=== PATIENT | male | born 1975 | race Caucasian/White ===

== ENCOUNTER 2024-09-06 12:53 | Inpatient (IN) | payer BC, SELFPAY ==
[2024-09-06] VITALS (20 sets, daily range): BP systolic 95–178; BP diastolic 35–147; BMI 35.1
[2024-09-06 11:27] LABS: Glucose - Point of Care 87 mg/dl (70-99)
[2024-09-06 11:33] LABS: % Basophils 0.9 % (0-2); % Eosinophils 3.8 % (0-6); % Immature Granulocytes 0.5 % (0-0.5); % Lymphocytes 46.3 % (20.5-51.1); % Monocytes 9.1 % (1.7-9.3); % Neutrophils 39.4 % (42.2-75.2); Absolute Basophils 0.1 10^3/uL (0-0.2); Absolute Eosinophils 0.3 10^3/uL (0-0.7); Absolute Lymphocytes 3.5 10^3/uL (1.2-3.4); Absolute Monocytes 0.7 10^3/uL (0.1-0.6); Absolute Neutrophils 2.9 10^3/uL (1.4-6.5); Hematocrit 50.4 % (39.0-52.0); Hemoglobin 16.5 g/dL (13.0-18.0); Mean Corp Hgb Conc. 32.7 g/dL (33.0-37.0); Mean Corpuscular Hgb 28.5 pg (27.0-31.0); Mean Corpuscular Volume 87.2 fL (80.0-94.0); Mean Platelet Volume 9.1 fL (7.4-10.4); Nucleated Red Blood Cells % 0 % (-); Platelet Count 307 10^3/uL (130-400); Red Blood Cell Count 5.78 10^6/uL (4.70-6.10); Red Cell Dist. Width 14.5 % (11.5-14.5); White Blood Cell Count 7.5 10^3/uL (4.8-10.8)
--- NOTE | 2024-09-06 11:39 | EDRN ---
See code 9 sheet.
[2024-09-06 11:42] LABS: AST (SGOT) 34 U/L (17-59); Albumin 4.8 g/dl (3.5-5.0); Alkaline Phosphatase 58 U/L (38-126); Blood Urea Nitrogen 14 mg/dl (9-20); Calcium 10.2 mg/dl (8.4-10.2); Carbon Dioxide 17 mmol/L (22-30); Chloride 110 mmol/L (98-107); Glucose 140 mg/dl (70-99); Potassium 4.6 mmol/L (3.5-5.1); Sodium 146 mmol/L (135-145); Total Bilirubin 0.7 mg/dl (0.2-1.3); Total Protein 8.1 g/dl (6.3-8.2); eGFR 56.72
[2024-09-06 11:54] LABS: Troponin I < 0.012 ng/ml
[2024-09-06 11:59] LABS: ALT (SGPT) 37 U/L (0-50)
[2024-09-06 12:10] LABS: ACT-LR - POC 337 Seconds (116-155)
[2024-09-06 12:24] LABS: PO2 64 mmHg (83-108)
[2024-09-06 12:28] LABS: PCO2 119 mmHg (35-48); pH < 6.80 (7.35-7.45)
[2024-09-06 12:32] LABS: ACT-LR - POC 289 Seconds (116-155)
[2024-09-06 12:54] LABS: B.E. -19.4 mmol/L; O2 Saturation % 55.6 % (94-98)
[2024-09-06 12:57] LABS: HCO3 14.2 mmol/L (21-28); PCO2 71 mmHg (35-48); PO2 46 mmHg (83-108); pH 6.91 (7.35-7.45)
[2024-09-06 13:03] LABS: Lactic Acid 15.2 mmol/L (0.7-2.0)
[2024-09-06 13:07] LABS: ACT-LR - POC 314 Seconds (116-155)
[2024-09-06 13:09] LABS: B.E. - POC -7.8 mmol/L; Glucose - POC 285 mg/dl (70-99); HCO3 - POC 20 mmol/L (21-28); Hematocrit - POC 50 % PCV (42-52); Hemodilution- POC Yes; Hemoglobin Calculated - POC 16.9; Ionized Calcium - POC 1.03 mmol/L (1.15-1.33); Lactate - POC 9.61 mmol/L (0.36-0.75); O2 Saturation %Calculated-POC 92.5 % (94-98); PCO2 - POC 47 mmHg (35-48); PO2 - POC 77 mmHg (83-108); Potassium - POC 4.1 mmol/L (3.5-5.1); Sodium - POC 140 mmol/L (136-145); Specimen Type - POC Arterial; pH - POC 7.24 (7.35-7.45)
--- NOTE | 2024-09-06 13:11 | ED.GENMED ---
Addendum entered and electronically signed by Yaneli Connors DO 09/06/24 15:10:
Procedure Note:
Endotracheal Intubation
Indication: emergent/airway protection
No consent due to emergent nature
Tube size 7.5
GlideScope, direct visualization
Attempt: 2
No complications
Confirmation by b/l breath sounds
23 cm at lip
Addendum entered and electronically signed by Khang Freitas DO 09/06/24 13:35:
[id number]... Also of note discussed obtaining pCXR prior to going to wood and wood products labourer to confirm placement of ET tube. He asked we forgo this as he can check placement of tube under fluoro in the wood and wood products labourer.
Original Note:
History of Present Illness
General
Chief Complaint: Chest Pain
Source: patient
Time Seen by Provider: 09/06/24 11:52
History of Present Illness
History of Present Illness:
Patient arrived to the emergency room complaining of chest pain. Patient told triage nurse that the patient developed chest pain while he was lifting concrete this morning. Pain is severe. Patient noted to be sweaty. Patient stated that the pain
radiated down his arms. While being triaged the patient became unresponsive. He was brought immediately to bed 40. Patient had an EKG performed essentially immediately upon arrival which showed no acute abnormalities.
Phy Exam
Physical Exam
Physical Exam:
General: Unresponsive, diaphoretic
Vitals: unremarkable
Head: Atraumatic,
Eyes: Pupils midpoint
Throat: Swi-ngqlk-ncty ventilation ongoing
Neck: Trachea midline
Lungs: Decreased breath sounds with ventilation
Heart: Regular rate, no murmurs
Abd: Soft, No pulsatile mass
Neuro: Spontaneous ventilatory effort but no spontaneous movement of his extremities
Skin: Warm, dry, no rash
Extremities: pulses equal b/l, no edema
Scores
Heart Score for Chest Pain Patients
STEMI patient?: Yes
Course
Orders/Labs/Results
Orders:
Orders
09/06/24
Electrocardiogram (*1) Stat
Reason for Study: Chest Pain
Comment: DONE
09/06/24 11:00
Electrocardiogram (*1) Urgent
Reason for Study: Chest Pain
EKG- Treatment ONCE
Amiodarone [Cordarone] 450 mg .ROUTE .STK-MED ONE
EPINEPHrine [Adrenalin 1 mg/10 ml] 6 mg .ROUTE .STK-MED ONE
Etomidate [Amidate] 40 mg .ROUTE .STK-MED ONE
Rocuronium [place] [Rocuronium] 50 mg .ROUTE .STK-MED ONE
Sodium Bicarbonate 50 meq .ROUTE .STK-MED ONE
Succinylcholine Chloride [Succinylcholine] 400 mg .ROUTE .STK-MED ONE
09/06/24 11:20
EKG [Electrocardiogram (*1)] Stat
Reason for Study: Abnormal EKG
09/06/24 11:21
EKG- Treatment ONCE
09/06/24 11:24
Comprehensive Metabolic Panel Urgent
Troponin I Urgent
09/06/24 11:25
Complete Blood Count/With Diff Urgent
09/06/24 11:34
NORepinephrine 4 MG/250 ML [Levophed] 4 mg in 250 ml .ROUTE .STK-MED
09/06/24 11:36
CXR [CR Chest Portable - 1 View] Stat
Comment:
Reason For Exam: intubation
Reason Study Needs to be Portable: Patient Unstable
09/06/24 12:10
ABG [Arterial Blood Gas] Stat
%Oxygen/Room Air: 100%
Comment: intubated
09/06/24 12:15
FentaNYL 1,000 MCG/100 ML [Sublimaze] 1,000 mcg in 100 ml IV PER PROTOCOL
Midazolam 50 mg/50 ml [Versed] 50 mg in 50 ml IV ORDERED RATE
09/06/24 12:20
Lactic Acid Stat
09/06/24 12:27
Electrocardiogram (*1) Urgent
Reason for Study: Other
Other Reason for Exam: s/p intervention
Comment: cbc
Code Status As Directed
Resuscitation Status: Full Code
CARDIAC REHAB CONSULT Routine
Co-Sign Provider:
Cardiac Rehab & Exercise Evaluation Referral
Type of Cardiac Rehab Referral: Outpatient
Diagnosis: STEMI
Date of Diagnosis/Surgery: 09/06/24
Referring Provider: Other Provider
Other Referring Provider: Chay Barrera
[facility] Intensive Cardiac Rehab Exercise Prescription
The above named person is capable of participating in an intensive cardiac rehab exercise therapy program
under the guidance of the [facility] [place] cardiac rehab staff, outpatient registered dieticians and
supervision of a physician.
ICR Program Objectives:
Provide supervised exercise, cooking classes, nutritional counseling and healthy mind-set education to
improve the function/symptom free work capacity to an optimal level as well as control risk factors to
prevent the progression of heart disease. During the supervised exercise therapy session some or all of
the following may be included in the cardiac rehab session: ECG telemetry, BP, heart rate, rate of
perceived exertion, symptoms/tolerance, cholesterol testing and education. Exercise modalities may
include: treadmill, upright or recumbent bike, spin bike, rowing machine, elliptical, recumbent
elliptical, arm-bike machine, recumbent stepper and free weights.
Intensity:
All CR staff will use ACSM guidelines: Most patients will exercise in the following range: Heart Rate
[place] range of 40% to 80% & Oxygen Uptake reserve range 40-80% (VO2R). Peak heart rate and VO2 are
derived from the cardiac rehab submaximal graded exercise test at RPE of 13/14 out of 20. Initial
intensity range: RPE 11 to 14/20 and may expand to 11 to 16/20.
Duration & Frequency:
If appropriate the patient will be progressed up to 40 minutes of exercise therapy. Patients will be
instructed to come three times a week in cardiac rehab and at a home/other gym to achieve optimal
physical activity/exercies i.e. 4000-10,000 steps per day.
Education:
The patient will receive one-on-one education during their orientation, initial exercise evaluation, ITP
reassessments and discharge session. Each exercise session will also include an education class (30-40
minutes).
[facility] Procedure As Directed
Cardiac Cath Procedure: percutaneous coronary intervention
Intake/ Output As Directed
Frequency: Per unit guidelines
Notify MD As Directed
Notify physician if: immediately for chest pain or bleeding from access site(s)
Site Checks As Directed
Check access site for bleeding/hematoma: Yes
Comment: on arrival, Q15min x4, Q30min x2, Q1 hr x2, Q2 hr x2, Q4 hr or per
protocol
Vascular Checks As Directed
Location: distal to access site - pulse check
Frequency: Other
Comment: on arrival, Q15min x4, Q30min x2, Q1 hr x2, Q2 hr x2, Q4 hr or per protocol
Vital Signs As Directed
Frequency: Other
Additional Instructions:: on arrival, Q15min x4, Q30min x2, Q1 hr x2, Q2 hr x2, then Q4 hr or per unit
protocol
09/06/24 12:30
0.9% Sodium Chloride 1000 ml [Nss] 1,000 ml IV PER PROTOCOL
Infusion rate in mL/kg/hr:: 1.5
Infusion rate in mL/hr:: 160
Duration of infusion (hours):: 5
09/06/24 12:32
Postdoctoral Scholar Consult Routine
Consulting Provider: Brittney Dc
Was physician already notified: Yes
Reason for consult: STEMI, cardiac arrest
09/06/24 12:34
Admit Patient As Directed
Co-Sign Provider:
Level of Care: Inpatient admission
Assign to:: CVICU
Physician / Group: susanne/Lisa
Diagnosis: STEMI, cardiac arrest
Reason for Hospitalization: STEMI, Cardiac arrest, LAD PCI
Expected length of stay greater than two midnights?: Yes
ELOS- Estimated Length of Stay in days: 5
I certify the patient meets the requirements for IP care: Yes
PRN Pain Medication Management As Directed
May give lesser potent ordered pain med per pt: Yes
preference::
Protocol:: Medication orders for pain may be administered in a
manner that supports deferring to patient preference
when the pt is:
- Requesting an ordered lesser potent pain medication.
Least to most potent pain medications are defined
as: acetaminophen < NSAID < tramadol < opioids
(morphine, oxycodone, hydromorphone).
- Requesting a lesser dose of the same medication IF
ORDERED.
- Requesting a less intrusive route of administration
if both routes are prescribed by the provider (PO <
IV).
09/06/24 12:35
DX Deep Vein Thrombosis Video Routine
09/06/24 12:45
Amiodarone [Cordarone] 900 mg DEXTROSE 5% PVC-free BAG [D5W PVC-free BAG] 500 ml IV PER PROTOCOL
Initial Dose in mg/min:: 1
Duration of initial dose (hours):: 6
Subsequent dose in mg/min:: 0.5
Duration of subsequent dose (hours):: 18
Maximum dose in mg/min:: 1
Hold and notify provider if:: Heart rate < 60 BPM or SBP < 90 mmHg or MAP < 60 mmHg
09/06/24 12:47
ABG [Arterial Blood Gas] Stat
%Oxygen/Room Air: 100
09/06/24 18:00
Enoxaparin Sodium [Lovenox] 40 mg SC QPM
09/07/24 06:00
Echo 2D MMode Color/Doppler IN AM
Reason for Study: stemi
Comment: lisa
Electrocardiogram (*1) IN AM
Reason for Study: Other
Other Reason for Exam: s/p intervention
Comment: cbc
Basic Metabolic Panel IN AM
Cardiovascular Evaluation IN AM
Complete Blood Count/No Diff IN AM
Glycohemoglobin (HgbA1c) IN AM
Abnormal Lab Results
09/06/24 09/06/24 09/06/24
11:24 11:25 12:02
MCHC 32.7 L g/dL
(33.0-37.0)
Absolute Lymphs (auto) 3.5 H 10^3/uL
(1.2-3.4)
Absolute Monos (auto) 0.7 H 10^3/uL
(0.1-0.6)
Neutrophils % 39.4 L %
(42.2-75.2)
pH
pCO2
pO2
HCO3
ABG O2 Sat (Measured)
Sodium 146 H mmol/L
(135-145)
Chloride 110 H mmol/L
(98-107)
Carbon Dioxide 17 L mmol/L
(22-30)
Creatinine 1.5 H mg/dL
(0.7-1.3)
Glucose 140 H mg/dl
(70-99)
Lactic Acid
POC ACT Low Range 337 H Seconds
(116-155)
09/06/24 09/06/24 09/06/24
12:10 12:20 12:25
MCHC
Absolute Lymphs (auto)
Absolute Monos (auto)
Neutrophils %
pH < 6.80 L*
(7.35-7.45)
pCO2 119 H* mmHg
(35-48)
pO2 64 L mmHg
(83-108)
HCO3
ABG O2 Sat (Measured)
Sodium
Chloride
Carbon Dioxide
Creatinine
Glucose
Lactic Acid 15.2 H* mmol/L
(0.7-2.0)
POC ACT Low Range 289 H Seconds
(116-155)
09/06/24
12:47
MCHC
Absolute Lymphs (auto)
Absolute Monos (auto)
Neutrophils %
pH 6.91 L*
(7.35-7.45)
pCO2 71 H* mmHg
(35-48)
pO2 46 L* mmHg
(83-108)
HCO3 14.2 L* mmol/L
(21-28)
ABG O2 Sat (Measured) 55.6 L %
(94-98)
Sodium
Chloride
Carbon Dioxide
Creatinine
Glucose
Lactic Acid
POC ACT Low Range
09/06/24 11:25
09/06/24 11:24
Vital Signs
Initial and Last Documented VS:
Initial Vital Signs
Temp Pulse Resp BP Pulse Ox
97.8 F 85 22 140/82 100
09/06/24 11:06 09/06/24 11:06 09/06/24 11:06 09/06/24 11:06 09/06/24 11:06
Last Documented Vital Signs
Temp Pulse Resp BP Pulse Ox
97.8 F 122 18 154/97 100
09/06/24 11:06 09/06/24 11:36 09/06/24 11:36 09/06/24 11:36 05/20/25 11:06
MDM/Problems Addressed
Differential Diagnosis Includes:
STEMI, thoracic aorta dissection, PE
MDM/Problems Addressed:
Patient presented with acute severe chest pain. Shortly after arrival he suffered a cardiac arrest. Patient brought back to resuscitation room. Patient was quickly placed on the monitor and found to be in ventricular fibrillation. He was shocked
into a wide-complex idioventricular rhythm and there was a pulse with this patient given 300 mg of amiodarone and the patient converted to sinus tachycardia. An additional EKG was obtained which shows an acute anterior wall CA. There is ST
elevation in leads I, aVL, V1, V2, V3 with reciprocal changes. A STEMI alert was called. Patient was intubated by Dr. Santiago on the second attempt. Patient was ventilated with a bag valve mask and an oral airway between intubations. Patient had
a second V-fib arrest. He was shocked and the resultant rhythm was asystole. Patient received CPR for about 3 rounds of epinephrine. Ultimately had return of spontaneous circulation. Dr. Box was quickly at the bedside after the STEMI was
called. He requested 100 mg of lidocaine. After return of spontaneous circulation the patient was taken to the [facility]. I escorted the patient to the [facility]. During the transport he had 2 episodes of ventricular tachycardia for which he
received synchronous cardioversion to sinus rhythm with 200 J. Patient transferred to the [facility] table. Dr. Box in the [facility]. We had discussed prior to coming to the [facility] that we would not initiate heparin in an effort to expedite the
transport to the [facility]. They we will start heparin, platelet inhibitors there.
*Pulse Oximetry
Patient hypoxic: no
*EKG
Interpreted by ED Provider?: Yes
Interpretation: abnormal
Heart Rate: 78
Rate: normal
Rhythm: sinus
[place]: normal axis
Interval: normal interval
QRS Pattern: normal QRS
Ischemia: non-specific ST changes
*Regrader Interpretation
Rate: normal
Interpretation: normal
Rhythm: sinus
*Critical Care Note
Total Time (30-74mins, 75-104mins- exclusive of procedures): 45 min
comment:
Critical care statement: A total of 45 minutes of critical care time was provided for this patient. This includes management of unstable vital signs, evaluation of the patient at bedside, reviewing the patient�s pertinent medical records, discussion
with consultants, review of old EKGs and review of pertinent medical records. This time with separate from time utilized to perform the aforementioned documented procedures
ED Attending Note
-
Portions of this chart may have been created with voice recognition software.� Occasional wrong word or��sound alike� substitutions may have occurred due to the inherent limitations of voice recognition software.
Discharge Plan
Departure
Patient Disposition: [facility]INE [facility]NOT[facility]
Presentation/result/management discussed w/ accepting MD/DO: Dr Box
Condition: Critical
Discharge Problem:
Acute CA, anterior wall, Cardiac arrest
Interventions
Interventions:
*Risk Screen - Suicide Last Done: 09/06/24 11:06
*General Assessment Last Done: 09/06/24 11:29
*Neglect/Abuse Screening Last Done: 09/06/24 11:06
*ED- Fall Risk Assessment Last Done: 09/06/24 11:21
*ED COVID-19 Vaccine History Last Done: 09/06/24 11:21
*Nursing Disposition Last Done: 09/06/24 11:39
ED- Cardiac Assessment Last Done: 09/06/24 11:31
Discharge Date and Time
Discharge Date/Time: 09/06/24 11:52
--- NOTE | 2024-09-06 14:00 | ITS.CL.PN ---
Consulting Marine Engineer - Procedure Note
Procedure
Procedure Note:
CARDIAC CATHETERIZATION REPORT
Date of Procedure: 09/06/2024
Referring: Dr. Khang Freitas MD
Indication: anterior STEMI
PROCEDURE(S)
1. right heart catheterization
2. left heart catheterization
3. coronary angiography
4. PCI with MINDI to LAD for acute ND
5. IVUS LAD
6. Impella placement
7. Critical care time additional 45 minutes
ACCESS
1. 14F right common femoral artery (Impella sutured in place)
2. 6F right common femoral vein
3. 8F right jugular vein
CATHETERS
1. 6F EBU4 guide catheter
2. 6F JR4 diagnostic
3. 6F JL4 diagnostic
4. 7F Denver Reanna
MODERATE SEDATION: 90 minutes of moderate sedation was utilized. An independent medical customer service representative was present to assist with and help manage the patient's level of consciousness and physiologic status.
HEMODYNAMIC DATA
LV 123/22 (EDP 37) mmHg
AO 116/87 (mean 97) mmHg
RA 17 mmHg
PA 50/20 (mean 30) mmHg
PCWP 23 mmHg
SaO2 92.1%
SvO2 70.6%
Hb 15.6 g/dL
CO/CI 6.36/2.74 L/min/m2
SVR 1257 dsc*-5
PVR 1.6 Wood units
CORONARY ANGIOGRAPHY
Dominance: Right
LM: Large with minimal disease
LAD: Large vessel giving rise to a small D1 and moderate caliber D2 before wrapping around the apex. There is a 100% thrombotic occlusion in the mid LAD before the takeoff of the D2. There are otherwise trivial luminal irregularities only.
LCx: Large vessel giving rise to a large OM1, large LPL1 and moderate caliber LPDA. There are trivial luminal irregularities only.
RCA: Small and nondominant without significant disease
PCI with MINDI to LAD
The patient arrived to the Consulting Marine Engineer intubated and sedated after undergoing approximately 15 minutes of CPR in the emergency department. There were towering ST elevations on the monitor. The patient was profoundly hypoxic despite maximal ventilatory
support. ET tube was noted to be in the right mainstem bronchus on fluoroscopy and was repositioned by anesthesia. This resulted in some but not complete improvement in hypoxia. 80 IV Lasix was given. The decision was made to proceed with Impella
placement prior to PCI in order to improve oxygenation and hemodynamics and prevent rearrest. After placing the 14 Japanese Impella sheath via ultrasound-guided right groin access, the aortic valve is crossed with a pigtail catheter and the Impella
advanced over a stiff wire and positioned with fluoroscopy. Therapy was initiated and over the next several minutes oxygenation significantly improved. Through a single access technique with placement of a 7 [place] sheath within the Impella sheath,
the left main was engaged with an EBU 4 diagnostic catheter. Angiography as described above identified the culprit lesion of the mid LAD which was wired with a Runthrough coronary wire followed by initial angioplasty with a 2.0x12 mm balloon which
restored flow to the distal LAD. A 3.5 x 22 mm [place] frontier drug-eluting stent was deployed at 14 adama. IVUS was performed demonstrating a 4 mm distal reference vessel diameter and 4.5 mm proximal reference vessel diameter. A 4.0 mm noncompliant
balloon was used to expand the distal stent edge at 16 adama. A 4.5 mm noncompliant balloon was used to expand the mid stent and proximal stent edge at 14 adama. Final IVUS demonstrated well-expanded and apposed stent with no edge dissection. The wire
and guide were removed. The Impella tear-away sheath was removed and replaced with the inline sheath which was secured in place. A right heart cath was performed via right femoral vein access, however as the Denver passed into the RV the patient had
VT which required defibrillation twice. Amiodarone and lidocaine boluses were given and drips were started. A [place] was instead placed via the right IJ and sutured in place. After the conclusion of the procedure, the patient's blood gas demonstrated
significant mixed respiratory and metabolic acidosis which was treated with bicarbonate and adjustment of ventilator settings with improvement on subsequent blood gas analysis. Filling pressures had improved dramatically at this point and the
patient was noted to be hypotensive with decreased pulsatility on the Impella A-line. Fluids were administered with improvement in pulsatility and blood pressure. The patient was noted to follow simple commands and was sedated with fentanyl and
midazolam for comfort. An OG tube was placed and 800 mg ticagrelor was given. 325 mg aspirin rectal suppository was administered. At this point the patient was taken off the table and transported to the CVICU.
RADIATION: dose 658 mGy; DAP 57 Gy*cm2; fluoroscopy time 15.1 min
CONCLUSIONS
1. Coronary artery disease as described with culprit 100% occlusion of the mid LAD
2. Successful Impella placement for cardiogenic shock and support of subsequent PCI
3. Successful IVUS guided PCI to the mid LAD with placement of a 3.5 x 22 mm [place] frontier drug-eluting stent postdilated to 4 mm distally and 4.5 mm proximally
4. Right heart cath (on Impella support) demonstrating elevated biventricular filling pressures, moderate postcapillary pulmonary hypertension, and normal cardiac output.
RECOMMENDATIONS
1. PA catheter-guided treatment of post ND cardiogenic shock. Titrate Impella to minimize need for pressors and inotropes, currently well supported on P3. Administer fluids for goal PA diastolic pressure of 15-20.
2. Maintain amio and lido drips for prevention of recurrent VT, can likely wean tomorrow.
3. Impella protocol heparin and Impella protocol hemolysis labs. If concern for hemolysis (decreased urine output, darkening urine color, worsening hemolysis labs) reach out to junior project manager on-call. Plan for Impella removal tomorrow
morning in labor representative if able to wean.
4. Continue DAPT with ticagrelor and aspirin.
5. High intensity statin. Eventual goal LDL less than 55. Check LP(a), A1c. Aggressive risk factor modification.
6. Initiation of GDMT for heart failure as tolerated once weaned from Impella
7. Eventual cardiac rehab
Signed: James Barrera MD, PhD
--- NOTE | 2024-09-06 14:20 | CON.INTV ---
Consultation
Consultation Request
Date/Time Consultation Requested: 09/06/2024
Date/Time Consultation Performed: 09/06/2024
Requesting Provider: Isauro Ramirez
Performing Provider: Brittney Dc
Reason for Consultation: Respiratory failure
Medical History
-
Chief Complaint: Chest pain, cardiac arrest
History of Present Illness:
Patient intubated and unable to provide any history.
Per ED records, patient is a 49-year-old gentleman who presented to the emergency room complaining of chest pain. Reportedly pain developed after he was lifting concrete earlier this morning. Patient was noted to be diaphoretic and while he was
being triaged he became unresponsive. Patient was noted to be in ventricular fibrillation and was defibrillated and CPR was initiated. During ED course, patient was intubated, mechanically ventilated and required at least 2 defibrillations for
ventricular fibrillation and reportedly he later developed ventricular tachycardia also. Patient received amiodarone as well as rounds of epi and Afrin. EKG was suspicious for ST elevation [place] and patient was emergently taken to company laborer. Patient
had PCI performed of LAD and Impella placed and was then admitted to cardiovascular ICU. Granulizing Machine Operator consultation was requested for further input.
Unable to obtain past medical history, surgical history etc. I tried reaching patient's spouse but was not able to, will try to gather additional information later.
Allergies / Home Medications
Allergies
Allergy/AdvReac Type Severity Reaction Status Date / Time
hydromorphone [From Dilaudid] Allergy Severe Anaphylaxis Verified 09/06/24 11:06
Review of Systems
-
Unable to Obtain full review of systems at this time due to: Patient Intubation
Vitals / Labs / Diagnostic Testing
Vital Signs
Temp Pulse Resp BP Pulse Ox
97.8 F 122 18 154/97 100
09/06/24 11:06 09/06/24 11:36 09/06/24 11:36 09/06/24 11:36 09/06/24 11:06
Laboratory Results
09/06/24 09/06/24 09/06/24
12:10 12:23 12:47
pH < 6.80 L* Cancelled 6.91 L*
pCO2 119 H* Cancelled 71 H*
pO2 64 L Cancelled 46 L*
HCO3 Cancelled 14.2 L*
O2 Delivery Level Cancelled Not Reportable
Diagnostic Testing:
Physical Exam
-
HEENT: Normocephalic
Cardiovascular: S1/S2
Respiratory: Clear and Non-Labored Respirations
GI: Soft and Non Distended
Neurology: Other (Sedated but easily wakes up with little stimulation. Moving all 4 extremities. responds to simple commands. )
Skin: Warm
General: Comfortable
Assessment
-
#1. Acute [place] complicated by Cardiac arrest due to Ventricular Fibrillation/Ventricular Tachycardia
- CPR was initiated in ED, received defibrillation, Amiodarone, Epinephrine, Lidocaine, cardioversion . Intubated in emergency room. ROSC achieved.
- s/p emergent PCI with MINDI in LAD, Impella placement. Right IJ cordis in place. ASA, Ticagrelor, heparin infusion and Statins
- Currently intubated and lightly sedated, on mechanical ventilation
- Patient moving extremities, able to squeeze hands on command, hold off cooling
- Volume assist control ventilation, 500/16/50%/5. ABG 7.39, 37, 317 (c.f. pH 6<6.8 on arrival). CXR unremarkable
- CXR in AM. Likely SAT/SBT in AM if hemodynamically stable
- Hold off CT head for now considering moving all extremities an waking up, hold off EEG
- Fentanyl and Propofol for sedation
- CXR, ABG in AM
- Stat CBC, CMP, Mg, PT/PTT
- Levophed as needed for hypotension
- Lactic acidosis resolving, 1.5 > 5.0 . Check serial lactate
- F/u CMP
68 min of critical care time spent.
Data:
ECHO 08/2024: Severely reduced left ventricular systolic function. Left ventricular ejection
fraction is 20-25%.
Hypokinesis of the mid to apical anterior segments, mid to apical septal
segments, apical inferior and apical lateral segments, and apex.
Impella visualized crossing aortic valve into LV.
No significant valve disease.
[2024-09-06] MEDS: SODIUM BICARBONATE 1025 MEQ INF CATH (14:23)
[2024-09-06 14:44] LABS: Hematocrit 45.1 % (39.0-52.0); Hemoglobin 15.4 g/dL (13.0-18.0); Mean Corp Hgb Conc. 34.1 g/dL (33.0-37.0); Mean Corpuscular Hgb 28.8 pg (27.0-31.0); Mean Corpuscular Volume 84.5 fL (80.0-94.0); Mean Platelet Volume 9.4 fL (7.4-10.4); Platelet Count 297 10^3/uL (130-400); Red Blood Cell Count 5.34 10^6/uL (4.70-6.10); Red Cell Dist. Width 14.3 % (11.5-14.5); White Blood Cell Count 16.6 10^3/uL (4.8-10.8)
[2024-09-06 14:52] LABS: INR 1.48; PT 18.4 Sec (11.4-14.6)
--- NOTE | 2024-09-06 15:00 | PTCARENOTE ---
Received pt from [facility] @ ~1415. Pt intubated via ETT. Vent set to SIMV 20/600/10/60%. POX 100%. B/L breath sounds present. Pt sedated on fentanyl gtt and versed gtt. Pt wakes to verbal stimuli, follows simple commands, SPARKS. SR w PVCs on the tele
monitor, HR 70s. SBP 110s-120s. B/L radial and DP pulses palpable. Confirming R DP pulses w doppler. Impella intact via RFA @ 88cm and set to P-7, see worklist for full settings. RFV sheath intact w KVO infusing. Heart tones audible. Amio gtt and
Lido gtt infusing on arrival. Mazariegos catheter placed, UO bloody, Dr. Box made aware. Abdomen round, hypoactive bowel sounds present. RIJ cordis and swan intact. R radial art line placed at the bedside. All lines leveled, zeroed, and flushed. Skin
CDI. Family updated and at bedside. ECHO, EKG, and CXR completed upon arrival. Ordered labs drawn and sent. See worklist for full assessment, VS, and interventions.
[2024-09-06 15:08] LABS: APTT > 200 Sec (23.4-35.0)
[2024-09-06 15:28] LABS: ACT-LR - POC 205 Seconds (116-155)
--- NOTE | 2024-09-06 15:37 | OR.RPT ---
Operative Report
Operative Report
Right Radial Arterial catheter placement
Indication: Hemolyzed labs, need for stat ABG, unreliable peripheral O2 saturation.
Bedside ultrasound was used to confirm patency of right radial artery. Under sterile condition area was subsequently cleaned and a drape was placed. Under direct ultrasound visualization,, radial artery was cannulated. Once blood was noted in the
chamber guidewire was advanced. Arterial catheter was subsequently advanced over the guidewire, and then guidewire was removed. Pressure tubing was subsequently attached to the catheter and arterial waveform was noted on the monitor. Subsequently
a dressing was placed.
Complications: None
Blood loss: None
Date of service: 09/06/2024
[2024-09-06 15:53] LABS: O2 Saturation % 96.5 % (94-98); pH 7.39 (7.35-7.45)
[2024-09-06 15:56] LABS: B.E. -2.1 mmol/L; HCO3 22.4 mmol/L (21-28); PCO2 37 mmHg (35-48); PO2 317 mmHg (83-108)
[2024-09-06 16:03] LABS: Hematocrit 43.1 % (39.0-52.0); Mean Corp Hgb Conc. 34.8 g/dL (33.0-37.0); Mean Corpuscular Hgb 29.1 pg (27.0-31.0); Mean Corpuscular Volume 83.5 fL (80.0-94.0); Platelet Count 271 10^3/uL (130-400); Red Blood Cell Count 5.16 10^6/uL (4.70-6.10); Red Cell Dist. Width 14.1 % (11.5-14.5); White Blood Cell Count 15.1 10^3/uL (4.8-10.8)
[2024-09-06] MEDS: DIPRIVAN 100 IV (16:06)
[2024-09-06 16:17] LABS: Fibrinogen 319 MG/DL (199-459)
[2024-09-06 16:26] LABS: D-Dimer 4.41 ug/mlFEU (0.00-0.50)
[2024-09-06 16:28] LABS: ALT (SGPT) 131 U/L (0-50); AST (SGOT) 211 U/L (17-59); Albumin 3.9 g/dl (3.5-5.0); Alkaline Phosphatase 33 U/L (38-126); Blood Urea Nitrogen 20 mg/dl (9-20); Calcium 7.9 mg/dl (8.4-10.2); Carbon Dioxide 24 mmol/L (22-30); Estimated Creatinine Clearance 66 ml/min; Glucose 223 mg/dl (70-99); LDH 944 U/L (120-246); Total Bilirubin 1.8 mg/dl (0.2-1.3); Total Protein 7.1 g/dl (6.3-8.2); Triglycerides 82 mg/dl (10-149); eGFR 52.49
[2024-09-06 16:38] LABS: Chloride 107 mmol/L (98-107); Potassium 3.7 mmol/L (3.5-5.1); Sodium 139 mmol/L (135-145)
[2024-09-06 17:03] LABS: ACT-LR - POC 171 Seconds (116-155)
[2024-09-06] MEDS: KCL 50 IV (17:28)
[2024-09-06] MEDS: CALCIUM GLUCONATE 100 IV ×2 (17:31→23:28)
[2024-09-06] MEDS: NSS 1000 IV (17:47)
[2024-09-06 18:07] LABS: ACT-LR - POC 152 Seconds (116-155)
[2024-09-06] MEDS: HEPARIN 25000 UNITS/250 ML IV (18:16)
[2024-09-06 18:21] LABS: B.E. -1.6 mmol/L; HCO3 23.7 mmol/L (21-28); O2 Saturation % 96.2 % (94-98); PCO2 41 mmHg (35-48); PO2 169 mmHg (83-108); pH 7.37 (7.35-7.45)
[2024-09-06 18:23] LABS: Glucose - Point of Care 153 mg/dl (70-99)
[2024-09-06 18:30] LABS: Lactic Acid 1.7 mmol/L (0.7-2.0)
[2024-09-06] MEDS: NOVOLIN R INSULIN INFUSION 100 IV (18:30)
[2024-09-06] MEDS: LIPITOR 80 MG TUBE (18:36)
[2024-09-06 18:42] LABS: APTT 35.2 Sec (23.4-35.0)
--- NOTE | 2024-09-06 19:09 | CON.HOSP ---
Addendum entered and electronically signed by Loreto Castorena DO 09/06/24 20:47:
Plan to Include
I-FARM PLANNER:
TTE Reviewed
Severely reduced left ventricular systolic function. Left ventricular ejection
fraction is 20-25%.
Hypokinesis of the mid to apical anterior segments, mid to apical septal
segments, apical inferior and apical lateral segments, and apex.
Impella visualized crossing aortic valve into LV.
No significant valve disease.
- Management per primary cardio
Original Note:
Family Physician
-
Family Physician: NOT KNOW UNKNOWN - PT DOES
Chief Complaint
-
Chest Pain, Syncope
History of Present Illness
49yo M with HTN, GERD, Renal Ca, Right Side - Resection x 2, Torn Biceps, Torn Deltoid; No known DM history presents to ER wtih Chest Pain. I spoke with ([phone]) for more information. Outside moving concrete. +SOB. Dropped to Knees. 'Cant
feel my arms.' No immediate chest pain; did have back 'soreness'. Yesterday, he was in [place] throwing the football. Had slight discomfort but did not seek further attention. Upon arrival to Triage. Patient had trouble sitting back. Had Chest
Pain radiating down both arms. ROS unattainable.
Hospital Course:
'Shortly after arrival he suffered a cardiac arrest. Patient brought back to resuscitation room. Patient was quickly placed on the monitor and found to be in ventricular fibrillation. He was shocked into a wide-complex idioventricular rhythm and
there was a pulse with this patient given 300 mg of amiodarone and the patient converted to sinus tachycardia. An additional EKG was obtained which shows an acute anterior wall AL. There is ST elevation in leads I, aVL, V1, V2, V3 with reciprocal
changes. A STEMI alert was called. Patient was intubated by Dr. Santiago on the second attempt. Patient was ventilated with a bag valve mask and an oral airway between intubations. Patient had a second V-fib arrest. He was shocked and the
resultant rhythm was asystole. Patient received CPR for about 3 rounds of epinephrine. Ultimately had return of spontaneous circulation. Dr. Box was quickly at the bedside after the STEMI was called. He requested 100 mg of lidocaine. After
return of spontaneous circulation the patient was taken to the [facility]. I escorted the patient to the [facility]. During the transport he had 2 episodes of ventricular tachycardia for which he received synchronous cardioversion to sinus rhythm with
200 J. Patient transferred to the [facility] table'
Medical History
Past Medical History
Past Medical History: Reports Other (HTN, GERD, Renal Ca, Right Side - Resection x 2, Torn Biceps, Torn Deltoid; No known DM history. )
Past Surgical History: Reports Other (Renal Ca, Right - Resection x 2; Torn Deltoid s/p Surgery, B/L Biceps Tendon Repair, Abdominal Hernia)
Social History
Tobacco: Other (Chews Tobacco)
Alcohol: Other (Social ETOH use)
Drug: Other
Personal:
Living: With Family
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
Family History
Family History: Other (Father with CAD s/p Stent x9; Paternal uncles with CAD s/p AL and multiple cardiac deaths.)
Allergies / Home Medications
Allergies reflects when Allergies were last updated in [facility].
Home Medications with original date entered in [facility]
Allergy/Medication List:
Allergies
Allergy/AdvReac Type Severity Reaction Status Date / Time
hydromorphone [From Dilaudid] Allergy Severe Anaphylaxis Verified 09/06/24 11:06
Review of Systems
-
Unable to obtain full review of systems at this time due to: Acuity and Other (Intubated)
A 12 point Review of Systems was completed except as noted: No
Physical Exam
Vital Signs
Vital Signs
Temp Pulse Resp BP Pulse Ox
97.7 F 69 18 121/66 99
09/06/24 18:00 09/06/24 19:00 09/06/24 19:00 09/06/24 19:00 09/06/24 19:00
Physical Exam
General: Well Developed, Well Nourished and Intubated
HEENT: Normocephalic, Moist Mucous Membranes (D), Atraumatic, PERRLA and Other (Dry MM)
Respiratory: Clear
Cardiac: S1/S2 and Regular Rhythm; Negative Murmur or Rub
GI: Soft, Non Tender, Non Distended, Normal Bowel Sounds and Other (Obese)
Rectal: Deferred by Provider
Genito-urinary: No Costovertebral Tend
Musculoskeletal: No Clubbing, No Cyanosis and No Edema
Skin: Warm and Dry; Negative Rash
Neuro: Awake, Alert, Nonfocal/Grossly Intact and Other (Following simple commands lightly sedated on vent)
Laboratory Results
-
Laboratory Results
09/06/24 15:43
09/06/24 15:43
PT 18.4 Sec (11.4-14.6) H 09/06/24 14:35
INR 1.48 09/06/24 14:35
APTT 35.2 Sec (23.4-35.0) H 09/06/24 18:22
pH Cancelled 09/06/24 20:00
pCO2 Cancelled 09/06/24 20:00
pO2 Cancelled 09/06/24 20:00
HCO3 Cancelled 09/06/24 20:00
Lactic Acid 1.7 mmol/L (0.7-2.0) 09/06/24 18:06
Total Bilirubin 1.8 mg/dl (0.2-1.3) H D 09/06/24 15:43
AST 211 U/L (17-59) H 09/06/24 15:43
ALT 131 U/L (0-50) H 09/06/24 15:43
Alkaline Phosphatase 33 U/L (38-126) L 09/06/24 15:43
Troponin I 16.700 ng/ml H* D 09/06/24 18:06
Data Reviewed
-
Diagnostic Radiology: Image personally visualized and interpreted
Medical Tests (Nuc Med, Echo, EKG etc): Image personally visualized and interpreted (NSR @ 69bpm, STEMI V2-V6, I-AVL, Reciprocal Depression II-AVF, QTC 422ms. )
Impression / Plan
-
STEMI / Hx HTN
- Pt presented with dyspnea and near syncope after lifting heavy concrete. Followed by back soreness and chest pain radiating to b/l arms and syncope
- EKG: NSR @ 69bpm, STEMI V2-V6, I-AVL, Reciprocal Depression II-AVF, QTC 422ms.
- S/P VF/VT arrest followed by PEA arrest. Emergent Cath with Mid LAD lesion s/p MINDI. Pt remains on Impella, intubated/sedated in CVICU
- HS Trop 0.012 -> 16.7. Trend to peak
- Started on Aspirin/Brilinta/High Intensity statin
- Wean lidocaine and Amio gtt as per ICU/Cardio recs
Ventilator Dependence
- Vent management per Critical Care team
- Sedated on prop/fent
Hyperglycemia
- BG 223 at peak since admission
- No prior hx DM. Started on insulin gtt
- Check A1C. Consider endocrine consult
GERD - Hx noted. Continue PPI
OAB - hx noted. Continue myrbetriq
Depression/Insomnia - Hx Noted. resume venlafaxine and ambien when ok from cardiac standpoint (monitor QTC)
DVT ppx: Heparin gtt
Code Status: Full Code
Communication: I Spoke with and updated her over phone and patient.
[2024-09-06] MEDS: SUBLIMAZE 100 IV (19:24)
[2024-09-06] MEDS: LR 1000 IV (19:29)
--- NOTE | 2024-09-06 19:30 | PTCARENOTE ---
Pt reassessed. Pt remains intubated and sedated. Versed switched to propofol - see MAR. Fentanyl infusion maintained. Pt opens eyes to verbal stimuli and following simple commands. SR on the tele monitor w/ PVCs. HR 70s. BP 90-110's/70s. Impella via
RFA intact @ 88 cm. Impella set to P-3. Right LE DP pulse weak, confirmed w/ doppler. RLE warm. See impella flowsheet on worklist. CVP ~ 11. PAPs 30s/10-20s. EET #7.5, 23 cm @ right lip. Pt on AC and 50% FiO2. See worklist for full settings. POX
98%. Mazariegos catheter intact. UO less bloody. Right IJ cordis w/ swan and right radial a-line maintained. All lines leveled, zeroed, and flushed. RFV venous sheath intact w/ KVO infusing. Amio, Lido, and heparin infusing as ordered. Glycemic protocol
followed - infusion currently off per protocol - see worklist. LR bolus infusing. Pt repositioned in bed. Linens changed. Right leg immobilizer on. See worklist for all nursing interventions.
[2024-09-06] MEDS: BRILINTA 90 MG TUBE (19:41)
[2024-09-06 19:52] LABS: Glucose - Point of Care 108 mg/dl (70-99)
--- NOTE | 2024-09-06 20:30 | CON.CAR ---
Consultation
Consultation Request
Date/Time Consultation Requested: 09/06/2024
Date/Time Consultation Performed: 09/06/2024
Requesting Provider: Dr. Khang Freitas
Performing Provider: Dr. Chay Barrera
Reason for Consultation: STEMI
Medical History
-
Chief Complaint: chest pain
History of Present Illness:
Mr. Lim is a 49-year-old man who presented to the [place] ED with chest pain after lifting concrete and subsequently became nonresponsive in the waiting room. He was emergently brought back to a room and initial EKG did not demonstrate
significant ischemic changes. However he subsequently arrested in VT/VF and ROSC was obtained after shock with subsequent EKG demonstrating significant anterior ST elevations. The patient rearrested and underwent CPR and ACLS for approximately 15
minutes with eventual ROSC. The decision was made to bring the patient emergently to the [facility] for angiography and mechanical support.
Family was quickly updated emergently in the ED waiting room and consent obtained verbally.
Past medical history was reviewed briefly with family and notable for hypertension, GERD, and renal cancer status post resection. No prior cardiac history was noted.
Limited social family history was obtained given emergent nature of situation.
Allergies / Home Medications
Allergy/AdvReac Type Severity Reaction Status Date / Time
hydromorphone [From Dilaudid] Allergy Severe Anaphylaxis Verified 09/06/24 11:06
�Medication �Instructions �Recorded �Confirmed �Type
amlodipine-valsartan 1 tab PO DAILY 09/06/24 09/06/24 History
mirabegron 50 mg tablet,extended mg PO 09/06/24 History
release 24 hr (Myrbetriq)
omeprazole 40 mg capsule,delayed 40 mg PO DAILY 09/06/24 09/06/24 History
release
venlafaxine 150 mg tablet,extended 150 mg PO DAILY 09/06/24 09/06/24 History
release 24 hr
zolpidem 10 mg tablet (Ambien) 10 mg PO HS PRN insomnia 09/06/24 09/06/24 History
Physical Exam
Vital Signs
Temp Pulse Resp BP Pulse Ox
36.7 C 69 18 122/69 95
09/06/24 20:00 09/06/24 20:00 09/06/24 20:00 09/06/24 20:00 09/06/24 20:00
Lab Results
09/06/24 15:43
09/06/24 15:43
Troponin I 16.700 ng/ml H* D 09/06/24 18:06
Physical Exam
General: Well Developed
Respiratory: Other (intubated)
Cardiac: Regular Rhythm
Skin: Other (blue discoloration of skin)
Neuro: Sedated
Impression / Plan
-
Mr. Odonnell is a 49-year-old man with past medical history significant for hypertension, GERD, and renal cancer status postresection, who presented with chest pain and subsequently arrested in the ED, found to have anterior STEMI. After successfully
obtaining ROSC in the ED the patient was transported to the [facility] for emergent coronary angiography. Impella CP was placed prior to angiography for treatment of cardiogenic shock and support of PCI. PCI was performed with successful MINDI x 1 to
mid LAD with excellent result.
# anterior STEMI s/p PCI to LAD
# cardiogenic shock s/p Impella CP placement
# ventricular tachycardia
# coronary artery disease
- cont. Impella at P3, trend hemolysis labs, call production tool engineer IC if worsening lysis labs, worsening urine color, decreased urine output; plan to remove Impella in landscaping and groundskeeping laborer tomorrow
- trend hemos from swan
- give 500 cc fluid boluses up to q4 hours for goal PA diastolic 15-20, trend UOP
- cont. amio/lido drips for now, wean in AM
- cont. asa/ticag daily
- high intensity statin goal LDL<55, check Lp(a), A1c
- initiate GDMT for heart failure once Impella out as tolerated
- vent management pre critical care, recommendations appreciated
- glucose management and additional medical management per hospitalist service, recommendations appreciated
Data Reviewed
-
EKG: Tracing Personally Visualized and interpreted
Radiology: Image Personally Visualized and interpreted
Ultrasound: Image Personally Visualized and interpreted
Medical Tests (Nuc Med, Echo etc): Image Personally Visualized and interpreted
Labs: Labs Reviewed by me
[2024-09-06] MEDS: SUBLIMAZE 50 MCG IV (20:49)
[2024-09-06 21:14] LABS: Glucose - Point of Care 87 mg/dl (70-99)
[2024-09-06 21:44] LABS: B.E. -1.3 mmol/L; HCO3 23.7 mmol/L (21-28); Ionized Calcium 1.13 mMOL/L (1.15-1.33); O2 Saturation % 96.1 % (94-98); PCO2 40 mmHg (35-48); PO2 152 mmHg (83-108); Potassium 4.3 mMOL/L (3.5-5.1); pH 7.38 (7.35-7.45)
[2024-09-06 21:46] LABS: O2 Therapy %Oxygen/Room Air ven
[2024-09-06 21:54] LABS: Lactic Acid 1.1 mmol/L (0.7-2.0)
[2024-09-06 21:58] LABS: Blood Urea Nitrogen 23 mg/dl (9-20); Calcium 8.4 mg/dl (8.4-10.2); Carbon Dioxide 28 mmol/L (22-30); Chloride 109 mmol/L (98-107); Estimated Creatinine Clearance 52 ml/min; Glucose 100 mg/dl (70-99); Potassium 4.3 mmol/L (3.5-5.1); Sodium 138 mmol/L (135-145); eGFR 40.16
[2024-09-06 22:05] LABS: LDH 1132 U/L (120-246)
[2024-09-06 22:12] LABS: Glucose - Point of Care 85 mg/dl (70-99)
--- NOTE | 2024-09-06 23:00 | PTCARENOTE ---
bedside report received from previous RN, assumed care of pt. pt in bed, intubated via ETT. vent set to A/C 18/550/8/50%. POX 98%. B/L breath sounds present. pt sedated on fentanyl gtt and propofol gtt. pt wakes to verbal stimuli, follows simple
commands, SPARKS. SR w PVCs on monitor, HR 70s. SBP 110s. B/L radial and DP pulses palpable. Confirming R DP pulses w doppler. Impella intact via RFA set to P-2, see worklist for full settings. RFV sheath intact w KVO infusing. heart tones clear. Amio
gtt and Lido gtt infusing. Heparin gtt infusing per protocol. farmer catheter intact, draining jose juan urine. abdomen round, hypoactive bowel sounds present. RIJ cordis and swan intact. right radial art line intact. skin CDI. at bedside. see
worklist for full assessment, VS, and interventions.
[2024-09-07] VITALS: BP 135/76
[2024-09-07 00:17] LABS: Glucose - Point of Care 97 mg/dl (70-99)
[2024-09-07] MEDS: DIPRIVAN 100 IV ×2 (00:17→06:15)
[2024-09-07 00:34] LABS: APTT 42.4 Sec (23.4-35.0)
[2024-09-07] MEDS: SUBLIMAZE 100 IV ×2 (01:50→08:32)
[2024-09-07 02:14] LABS: Glucose - Point of Care 104 mg/dl (70-99)
--- NOTE | 2024-09-07 03:00 | PTCARENOTE ---
no acute changes in assessment. vent maintained on A/C 18/550/8/40%. POX 97-98%. Fent and Prop gtt maintained. SR w PVCs 70s. Impella remains @ P-3, site CDI. pt neurovascularly intact. SBP 130s. CI > 2. pt remains on Amio, Lido, and Heparin gtts.
UO adequate. OGT maintained to LIS. AM labs drawn and sent.
[2024-09-07 03:31] LABS: Hematocrit 43.6 % (39.0-52.0); Hemoglobin 14.6 g/dL (13.0-18.0); Mean Corp Hgb Conc. 33.5 g/dL (33.0-37.0); Mean Corpuscular Hgb 28.6 pg (27.0-31.0); Mean Corpuscular Volume 85.5 fL (80.0-94.0); Mean Platelet Volume 8.9 fL (7.4-10.4); Platelet Count 233 10^3/uL (130-400); Red Cell Dist. Width 14.6 % (11.5-14.5); White Blood Cell Count 11.8 10^3/uL (4.8-10.8)
[2024-09-07 03:32] LABS: Ionized Calcium 1.15 mMOL/L (1.15-1.33)
[2024-09-07 03:35] LABS: B.E. -2.2 mmol/L; HCO3 23.2 mmol/L (21-28); O2 Saturation % 95.5 % (94-98); O2 Therapy 40; PCO2 41 mmHg (35-48); PO2 104 mmHg (83-108); pH 7.36 (7.35-7.45)
[2024-09-07 03:57] LABS: Fibrinogen 386 MG/DL (199-459); Lactic Acid 1.1 mmol/L (0.7-2.0); PT 16.7 Sec (11.4-14.6)
[2024-09-07 03:59] LABS: ALT (SGPT) 163 U/L (0-50); AST (SGOT) 597 U/L (17-59); Albumin 3.5 g/dl (3.5-5.0); Alkaline Phosphatase 46 U/L (38-126); Blood Urea Nitrogen 23 mg/dl (9-20); Calcium 8.8 mg/dl (8.4-10.2); Carbon Dioxide 25 mmol/L (22-30); Chloride 109 mmol/L (98-107); Direct Bilirubin 0.3 mg/dl (0.0-0.4); Estimated Creatinine Clearance 50 ml/min; Glucose 118 mg/dl (70-99); HDL Cholesterol 30 mg/dl; LDL Cholesterol, Calculated 114 mg/dl; Potassium 4.7 mmol/L (3.5-5.1); Sodium 140 mmol/L (135-145); Total Bilirubin 1.3 mg/dl (0.2-1.3); Total Cholesterol 164 mg/dl (50-199); Total Protein 6.2 g/dl (6.3-8.2); Triglyceride 103 mg/dl (10-149); Very Low Density Lipoprotein 20 mg/dl (0-30); eGFR 37.88
[2024-09-07 04:00] LABS: D-Dimer 2.38 ug/mlFEU (0.00-0.50)
[2024-09-07 04:09] LABS: LDH 1689 U/L (120-246); LDH 1721 U/L (120-246)
[2024-09-07 04:15] LABS: Glucose - Point of Care 101 mg/dl (70-99)
[2024-09-07 06:00] VITALS: BMI 35.3
[2024-09-07 06:18] LABS: Glucose - Point of Care 98 mg/dl (70-99)
[2024-09-07 06:41] LABS: APTT 59.3 Sec (23.4-35.0)
--- NOTE | 2024-09-07 07:05 | ECGCV ---
Kesha Balderas PA-c notified of ECG critical value identified by electronic interpretation on ECG completed on 09/07/24, at 0539.
--- NOTE | 2024-09-07 07:28 | W.PN.HOSP.TC ---
Today's Communication/Plan
-
See below
Assessment / Plan
Assessment / Plan
Physical Exam
General: Not in acute distress and Intubated
HEENT: Normocephalic
Respiratory: Equal air entry bilaterally
Cardiac: S1/S2 and Regular Rhythm
GI: Soft, Non Tender, Non Distended, Normal Bowel Sounds and Other (Obese)
Musculoskeletal: No Cyanosis and No Edema
Skin: Warm and Dry
Neuro: Awake, Alert, Nonfocal/Grossly Intact and Other (Following simple commands)
Assessment/Plan
49yo M with HTN, GERD, Renal Ca, Right Side - Resection x 2, Torn Biceps, Torn Deltoid; No known DM history presented to the ER with Chest Pain. Dr. Castorena spoke with patient's ([phone]) for more information. Outside moving concrete.
+SOB. Dropped to Knees. 'Cant feel my arms.' No immediate chest pain; did have back 'soreness'. On 09/05/24, he was in [place] throwing the football. Had slight discomfort but did not seek further attention. Upon arrival to Triage. Patient had
trouble sitting back. Had Chest Pain radiating down both arms. ROS unattainable.
Hospital Course:
'Shortly after arrival he suffered a cardiac arrest. Patient brought back to resuscitation room. Patient was quickly placed on the monitor and found to be in ventricular fibrillation. He was shocked into a wide-complex idioventricular rhythm and
there was a pulse with this patient given 300 mg of amiodarone and the patient converted to sinus tachycardia. An additional EKG was obtained which shows an acute anterior wall NM. There is ST elevation in leads I, aVL, V1, V2, V3 with reciprocal
changes. A STEMI alert was called. Patient was intubated by Dr. Santiago on the second attempt. Patient was ventilated with a bag valve mask and an oral airway between intubations. Patient had a second V-fib arrest. He was shocked and the
resultant rhythm was asystole. Patient received CPR for about 3 rounds of epinephrine. Ultimately had return of spontaneous circulation. Dr. Box was quickly at the bedside after the STEMI was called. He requested 100 mg of lidocaine. After
return of spontaneous circulation the patient was taken to the [facility]. I escorted the patient to the [facility]. During the transport he had 2 episodes of ventricular tachycardia for which he received synchronous cardioversion to sinus rhythm with
200 J. Patient transferred to the [facility] table'
Anterior wall STEMI complicated by Cardiac arrest due to Ventricular Fibrillation/Ventricular Tachycardia
- Pt presented with dyspnea and near syncope after lifting heavy concrete. Followed by back soreness and chest pain radiating to b/l arms and syncope
- EKG: NSR @ 69bpm, STEMI V2-V6, I-AVL, Reciprocal Depression II-AVF, QTC 422ms.
- S/P VF/VT arrest followed by PEA arrest. Emergent Cath with Mid LAD lesion s/p MINDI. Pt remains on Impella, intubated/sedated
- HS Trop 0.012 -> 16.7. Trend to peak
- Started on Aspirin/Brilinta/High Intensity statin
- Heparin Drip as per cardio
- Wean lidocaine and Amio gtt as per ICU/Cardio recs
- Recurrent Chest pain on 09/07/24 --> emergent cleaning laborer
Cardiogenic Shock with acute ischemic cardiomyopathy, HfrEF, LVEF 20-25%
- Had Impella placed
- Not needing pressors
Ventilator Dependence
- Vent management per Critical Care team
- Sedated on prop/fent
Hyperglycemia
- BG 223 at peak since admission
- No prior hx DM. Per patient's nurse, although Insulin Drip was planned, he never got it or needed
- Diabetes MANAGER DIESEL assistance appreciated (they were consulted on admission)
GERD - Hx noted. Continue PPI
HTN
OAB - hx noted. Continue myrbetriq
H/o Renal Cancer, Right Side - Resection x 2
Depression/Insomnia - Hx Noted. resume venlafaxine and ambien when ok from cardiac standpoint (monitor QTC)
DVT ppx: Heparin gtt
Code Status: Full Code
STEMI with chest pain needing monitoring in the CVICU is a high risk encounter.
Anticipated Discharge: > 48 hours
Subjective/Interval History
-
Date of Service: September 07, 2024
Patient was seen and examined. He remained intubated and mechanically ventilated, but was able to respond and wake up.
Objective Data
-
Labs:
Laboratory Results
09/06/24 09/07/24 09/07/24
21:32 00:09 03:16
WBC 11.8 H
Hgb 14.6
Hct 43.6
Plt Count 233
PT 16.7 H
INR 1.30
APTT 42.4 H
HCO3 23.7 23.2
Sodium 138 140
Potassium 4.3 4.7
Chloride 109 H 109 H
Carbon Dioxide 28 25
BUN 23 H 23 H
Creatinine 2.0 H 2.1 H
Glucose 100 H 118 H
Calcium 8.4 8.8
Total Bilirubin 1.3
AST 597 H*
ALT 163 H
Alkaline Phosphatase 46
09/07/24 09/07/24
06:10 13:00
WBC
Hgb
Hct
Plt Count
PT
INR
APTT 59.3 H Pending
HCO3
Sodium
Potassium
Chloride
Carbon Dioxide
BUN
Creatinine
Glucose
Calcium
Total Bilirubin
AST
ALT
Alkaline Phosphatase
Vital Signs:
Vital Signs
Temp Pulse Resp BP Pulse Ox
98.7 F 78 18 135/76 99
09/07/24 06:00 09/07/24 06:45 09/07/24 06:45 09/07/24 00:00 09/07/24 06:45
I&O
09/06/24 09/07/24 09/08/24
06:59 06:59 06:59
Intake Total 2890.8 / 2890.8
Output Total 1615 / 1615
Balance 1275.8 / 1275.8
--- NOTE | 2024-09-07 07:42 | PN.DE.MGMTRT ---
Insulin Management
- -
09/07/2024 Diabetes Management Consult
Patient admitted 09/06 s/p c/o chest pain. Within minutes of arrival to ED was unresponsive - cardiac arrest. PMH HTN, GERD, renal ca - resectioned. No diabetes mentioned or diabetes medications. A1C pending, cr 2.1, eGFR 37.88.
Patient is s/p cardiac cath with stent LAD, with Impella.
Patient remains intubated on vent. unable to discuss care. at bedside, very supportive. States patient has no history of diabetes himself or in his family. Will dc insulin infusion, start low corrective insulin Q 6 hours.
Will follow
Discussed with nurse.
Diabetes History
- -
Pre-Admission Diabetes Regimen
09/06/24 09/06/24 09/06/24
11:24 14:35 15:43
Creatinine 1.5 H Cancelled 1.6 H
09/06/24 09/07/24
21:32 03:16
Creatinine 2.0 H 2.1 H
Lab Results
Hemoglobin A1c Cancelled 09/06/24 18:06
Insulin Pump Settings
IP Diabetes Regimen
09/06/24 09/06/24 09/06/24
11:24 11:26 14:35
Glucose 140 H Cancelled
POC Glucose 87
09/06/24 09/06/24 09/06/24
15:43 18:22 19:51
Glucose 223 H
POC Glucose 153 H 108 H
09/06/24 09/06/24 09/06/24
21:13 21:32 22:10
Glucose 100 H
POC Glucose 87 85
09/07/24 09/07/24 09/07/24
00:08 02:12 03:16
Glucose 118 H
POC Glucose 97 104 H
09/07/24 09/07/24
04:13 06:12
Glucose
POC Glucose 101 H 98
Patient Education
--- NOTE | 2024-09-07 08:00 | PTCARENOTE ---
resumed care of patient from previous RN. walking rounds completed. pt in bed at time of assessment, intubated and sedated on fentanyl and propofol gtts. Remains on vent set to AC 18/550/5/40%. POX 98%. pt wakes to verbal stimuli, follows simple
commands. Appears Oriented to self and place. SR on monitor, HR 90s. VSS. +pulses. no Edema. Impella intact via RFA set to P-3. Amio gtt and Lido gtt infusing. Heparin gtt infusing per protocol. +bs. farmer catheter intact- draining cloudy yellow
urine. RIJ cordis and swan patent. right radial A-line present. PIVx4. at bedside and updated on plan of care. labs drawn and sent and meds crushed and given via tube. will await orders and plan for the day. continuing to monitor.
[2024-09-07] MEDS: BRILINTA 90 MG TUBE (08:19)
[2024-09-07] MEDS: MIRALAX 17 GRAMS TUBE (08:19)
[2024-09-07] MEDS: MYRBETRIQ EXTENDED RELEASE 50 MG PO (08:19)
[2024-09-07] MEDS: PREVACID 30 MG TUBE (08:19)
[2024-09-07] MEDS: LOW STRENGTH ASPIRIN 81 MG TUBE (08:19)
--- NOTE | 2024-09-07 08:29 | W.PN.CD ---
Today's Communication / Plan
-
Impella pull under fluoroscopy.
Maintain vent/sedation until hemostasis achieved.
If BP/CI are stable after impella removal, we will begin GDMT.
Maintain amiodarone/lidocaine until beta martha in place.
Impression / Plan
-
Impression/Plan: 49-year-old man with past medical history significant for hypertension, GERD, and renal cancer status postresection admitted anterior STEMI complicated by cardiac arrest/shock requiring Impella and PCI.
#Anterior STEMI
-Acute, threat to life.
-S/P PCI to LAD ([employer] [place] 3.5 x 22 MINDI, post dilated to 4.0 mm throughout, 4.5 mm in the proximal margin).
-DAPT with aspirin/ticagrelor.
-OMT/GDMT when hemodynamics will tolerate.
-High dose, high potency statin when taking PO.
#Cardiogenic shock
-Acute, threat to life, improving.
-Echo shows LVEF = 20-25%.
-S/P Impella CP placement.
-Currently on P2 and tolerating with excellent CI (>3.0 L/min/m2).
-Not requiring medical support/pressors/inotropes.
-Plan to keep intubated/sedated, return to lab for rewiring of the Impella sheath, removal of Impella and Perclose placement.
-GDMT when hemodynamics will tolerate.
-Maintain PA catheter for at least one more day.
#Ventricular tachycardia/ACLS
-Acute, result of STEMI.
-Continue amiodarone/lidocaine for the time being.
-Wean off when beta martha has been started.
-Opening eyes/following commands. Appears neurologically intact.
#VDRF
-Acute.
-Maintain vent/sedation to allow for impella removal.
-After hemostasis achieved, wean to extubate.
#Dispo
-CVICU status.
-Full code.
Critical Care Time = 60 minutes.
Subjective/Interval History:
PCI to LAD yesterday after cardiac arrest.
Intubated for airway protection.
Impella placed for cardiogenic shock.
Weight is up 0.4 kg.
Hbg down 1.9 g.
D-Dimer up to 2.38. Normal fibrinogen.
Troponin up to 72.6.
Lactate normalized.
Transaminitis rising.
LDH now 1721.
Nursing reports darkening of urine but adequate UOP (> 1700 mL).
DATA:
Cardiac Catheterization/PCI, 09/06/2024:
CONCLUSIONS
1. Coronary artery disease as described with culprit 100% occlusion of the mid LAD
2. Successful Impella placement for cardiogenic shock and support of subsequent PCI
3. Successful IVUS guided PCI to the mid LAD with placement of a 3.5 x 22 mm Dev[place] frontier drug-eluting stent postdilated to 4 mm distally and 4.5 mm proximally
4. Right heart cath (on Impella support) demonstrating elevated biventricular filling pressures, moderate postcapillary pulmonary hypertension, and normal cardiac output.
Transthoracic Echocardiogram, 09/06/2024:
CONCLUSIONS
Severely reduced left ventricular systolic function. Left ventricular ejection
fraction is 20-25%.
Hypokinesis of the mid to apical anterior segments, mid to apical septal
segments, apical inferior and apical lateral segments, and apex.
Impella visualized crossing aortic valve into LV.
No significant valve disease.
No prior study available for comparison.
Physical Exam
Vital Signs/Labs
Vital Signs
Temp Pulse Resp BP Pulse Ox
37.4 C 95 12 135/76 97
09/07/24 08:00 09/07/24 08:00 09/07/24 08:00 09/07/24 00:00 09/07/24 08:00
09/05/24 09/06/24 09/07/24
11:59 11:59 11:59
Actual Weight 105.2 kg
09/07/24 03:16
09/07/24 03:16
PT 16.7 Sec (11.4-14.6) H 09/07/24 03:16
INR 1.30 09/07/24 03:16
APTT 59.3 Sec (23.4-35.0) H 09/07/24 06:10
Magnesium 2.0 mg/dl (1.6-2.3) 09/06/24 21:32
Triglycerides 103 mg/dl (10-149) 09/07/24 03:16
LDL Cholesterol, Calc 114 mg/dl 09/07/24 03:16
VLDL Cholesterol, Calc 20 mg/dl (0-30) 09/07/24 03:16
HDL Cholesterol 30 mg/dl 09/07/24 03:16
LAB Results
09/06/24 09/06/24 09/07/24
11:24 18:06 00:09
Troponin I < 0.012 16.700 H* D 43.100 H* D
09/07/24
06:10
Troponin I 72.600 H* D
Physical Exam
Constitutional: No acute distress and Comfortable
EENT: Anicteric and Moist mucous membranes
Cardiovascular: Rhythm & rate is regular, Pedal edema is absent, JVD pressure is normal, S1S2 is normal and Murmur/rub/gallop absent
Respiratory: Respiratory effort normal, Lungs clear to auscul., Wheeze Absent, Crackles Absent and Rhonchi Absent
GI: Soft, Distention absent, Flat, Non tender and Normal bowel sounds
Neuro/Psych: Alert and Other (Opening eyes, responding to commands.)
Other: Cath Site (Right femoral Impella access site is C/D/I.)
Data Reviewed
-
Date of Service: September 07, 2024
Medical Decision Making: Reviewed Test Results and Independent Historian Assessment
EKG: Tracing Personally Visualized and interpreted and Report Reviewed by me
Echo: Tracing Personally Visualized and interpreted and Report Reviewed by me
X-Ray/CT/US/MRI/NUC/PET: Image Personally Visualized and interpreted and Report Reviewed by me
Medical Tests (PFT, Pathology etc): Image Personally Visualized and interpreted and Report Reviewed by me
Labs: Labs Reviewed by me
Old Records: Reviewed
--- NOTE | 2024-09-07 08:37 | W.PN.INTV ---
Today's Communication / Plan
Recommendations
- SAT, SBT with plan to wean propofol and fentanyl once cleared by cardiology service
- Anticipate extubation later today
Assessment
-
Patient is a 49-year-old gentleman who presented to the emergency room complaining of chest pain. Reportedly pain developed after he was lifting concrete earlier this morning. Patient was noted to be diaphoretic and while he was being triaged he
became unresponsive. Patient was noted to be in ventricular fibrillation and was defibrillated and CPR was initiated. During ED course, patient was intubated, mechanically ventilated and required at least 2 defibrillations for ventricular
fibrillation and reportedly he later developed ventricular tachycardia also. Patient received amiodarone as well as rounds of epi and Afrin. EKG was suspicious for ST elevation DE and patient was emergently taken to golf course laborer. Patient had PCI
performed of LAD and Impella placed and was then admitted to cardiovascular ICU. Catalytic Converter Operator Helper consultation was requested for further input.
#1. Anterior wall STEMI complicated by Cardiac arrest due to Ventricular Fibrillation/Ventricular Tachycardia
- CPR was initiated in ED, received defibrillation, Amiodarone, Epinephrine, Lidocaine, cardioversion . Intubated in emergency room. ROSC achieved.
- s/p emergent PCI with MINDI in LAD (100% mid-LAD occlusion), Impella placement (09/06/2024). ASA, Ticagrelor, heparin infusion and Statins
-Currently on amiodarone and lidocaine infusion with recent V-fib/V. tach.
- Currently intubated and lightly sedated, on mechanical ventilation, waking up
- Patient moving extremities, able to squeeze hands on command, cooling was not pursued
- CXR stable, plan for SAT/SBT once cleared by Cardiology service
- Fentanyl and Propofol for sedation
- Lactic acidosis resolved
#2. Cardiogenic shock with acute ischemic cardiomyopathy, HfrEF, LVEF 20-25%
- s/p Impella placement 08/2024
- MAP 85 this morning, PA pressure 28 x 21. Not requiring any pressor support.
- Anticipate Impella removal later today
- No pulmonary edema noted on x-ray
- Eventually will need GDMT
#3. Acute respiratory failure, patient was intubated in the setting of cardiac arrest/CPR
- More awake and alert today
- Currently on volume AC 550/18/40%/8, ABG this AM 7.36, 41, 104. Lactate normal at 1.1
- On sedation with propofol and fentanyl infusion
- Start SAT SBT and wean propofol/fentanyl once cleared by cardiology service. Anticipate extubation later today
#2. h/o JALIL
- Will resume nightly CPAP after extubation
- No prior history of smoking however patient chews tobacco
- Outpatient follow-up with sleep clinic
Other medical diagnoses:
-HTN
-GERD
- H/o Renal Cancer, Right Side - Resection x 2
Critical Care time 56 mins -- The patient is admitted for acute critical illness for the treatment of vital organ failure and/or prevention of further life-threatening conditions. Total care includes time spent in review of history, physical exam,
medications, hemodynamic/ventilator parameters, laboratory data, imaging and discussion with house staff, pharmacy, respiratory therapy, infectious waste technician, and nursing.
Data:
ECHO 08/2024: Severely reduced left ventricular systolic function. Left ventricular ejection
fraction is 20-25%.
Hypokinesis of the mid to apical anterior segments, mid to apical septal
segments, apical inferior and apical lateral segments, and apex.
Impella visualized crossing aortic valve into LV.
No significant valve disease.
Cardiac cath 08/2024: 1. Coronary artery disease as described with culprit 100% occlusion of the mid LAD
2. Successful Impella placement for cardiogenic shock and support of subsequent PCI
3. Successful IVUS guided PCI to the mid LAD with placement of a 3.5 x 22 mm Dev[place] frontier drug-eluting stent postdilated to 4 mm distally and 4.5 mm proximally
4. Right heart cath (on Impella support) demonstrating elevated biventricular filling pressures, moderate postcapillary pulmonary hypertension, and normal cardiac output. mPA 30, PVR 1.6, PCWP 23
Subjective Dataa
Subjective Data
Date of Service:
Date of Service: September 07, 2024
Subjective:
Patient currently intubated and mechanically ventilated. Waking up responds to simple commands.
Review of Systems
General: Unobtainable - Sedation
Objective Data
Data Reviewed
Vital Signs / I&O / Oxygen:
Vital Signs
Temp Pulse Resp BP Pulse Ox
99.3 F 95 12 135/76 97
09/07/24 08:00 09/07/24 08:00 09/07/24 08:00 09/07/24 00:00 09/07/24 08:00
Intake and Output
09/06/24 09/07/24 09/08/24
06:59 06:59 06:59
Intake Total 2890.8 / 2986.0 206.6 / 206.6
Output Total 1615 / 1715 175 / 175
Balance 1275.8 / 1271.0 31.6 / 31.6
SaO2 [CPAP] 97
SaO2 [A/C] 97
SaO2 [SIMV] 87
SaO2 96
Physical Exam
General: Comfortable
HEENT: Normocephalic
Cardiovascular: S1-S2
Respiratory: Non-Labored Respirations
GI: Soft and Non Distended
Skin: Warm
Labs/Micro/Reports
Lab Data
09/07/24 03:16
09/07/24 03:16
Laboratory Results
09/06/24 09/06/24 09/06/24
12:10 12:23 12:47
PT
INR
APTT
pH < 6.80 L* Cancelled 6.91 L*
pCO2 119 H* Cancelled 71 H*
pO2 64 L Cancelled 46 L*
HCO3 Cancelled 14.2 L*
O2 Delivery Level Cancelled Not Reportable
09/06/24 09/06/24 09/06/24
14:35 15:43 18:06
PT 18.4 H
INR 1.48
APTT > 200 H*
pH 7.39 7.37
pCO2 37 41
pO2 317 H 169 H
HCO3 22.4 23.7
O2 Delivery Level
09/06/24 09/06/24 09/06/24
18:22 20:00 21:32
PT
INR
APTT 35.2 H
pH Cancelled 7.38
pCO2 Cancelled 40
pO2 Cancelled 152 H
HCO3 Cancelled 23.7
O2 Delivery Level Cancelled %oxygen/room air justin
09/07/24 09/07/24 09/07/24
00:09 03:16 06:10
PT 16.7 H
INR 1.30
APTT 42.4 H 59.3 H
pH 7.36
pCO2 41
pO2 104
HCO3 23.2
O2 Delivery Level 40
[2024-09-07 08:42] LABS: Glucose - Point of Care 109 mg/dl (70-99)
[2024-09-07 08:52] LABS: Glycohemoglobin (HgbA1c) 5.6 % (4.0-5.6)
[2024-09-07 09:09] LABS: Lactic Acid 1.1 mmol/L (0.7-2.0)
[2024-09-07 10:19] LABS: LDH 2144 U/L (120-246)
--- NOTE | 2024-09-07 11:10 | ITS.CL.PN ---
Medical Center Director - Procedure Note
Procedure
Procedure Note:
IMPELLA REMOVAL/REPOSITIONING/REINSERTION
Date: 09/07/2024
Referring Physician/Provider: James Barrera M.D., PhD
Indication: Stable for removal, evidence of hemolysis.
Procedure:
1. Removal of Impella CP.
2. Percutaneous closure using 2 Perclose devices and a 6 Russian Angio-Seal.
Narrative:
The patient was brought to the cardiac Medical Center Director. The right common femoral Impella CP was thoroughly prepped with multiple chlorhexidine prep sticks. The patient was draped in standard sterile fashion. Under fluoroscopic guidance, the Impella was
removed and the left ventricle. The Impella was pulled into the descending aorta to the level of the sheath. At this time, a standard J-wire was advanced through the sideport of the Impella sheath and seated in the ascending aorta. The Impella
was unplugged. Maintaining wire position, the Impella and repositioning sheath were removed as a unit. A Perclose device was advanced over the wire after the Impella had been completely removed. The Perclose device was deployed and the wire was
readvanced to maintain wire position. The sutures were tightened over the wire and demonstrated an adequate hemostasis. A second Perclose was advanced over the wire and deployed in an off axis orientation. The Perclose device was removed with
wire position preserved and the knot was cinched down with improved but still inadequate hemostasis. A 6 Russian Angio-Seal was advanced over the wire and into the right common femoral artery. The 6 Russian Angio-Seal seal was deployed. At this
time, we had improved hemostasis. Palpable pulses were present both proximal and distal to the arteriotomy. Manual pressure was applied for 10 minutes. The patient was transferred back to CVICU in stable condition.
Conclusion:
1. Successful removal of a right common femoral Impella CP under fluoroscopic guidance.
2. Satisfactory hemostasis of the right common femoral artery using 2 Perclose devices and a 6 Russian Angio-Seal.
[2024-09-07 11:58] LABS: Glucose - Point of Care 107 mg/dl (70-99)
[2024-09-07 12:17] LABS: B.E. -0.6 mmol/L; HCO3 24.9 mmol/L (21-28); Ionized Calcium 1.17 mMOL/L (1.15-1.33); O2 Saturation % 96.1 % (94-98); PCO2 43 mmHg (35-48); PO2 131 mmHg (83-108); Potassium 4.2 mMOL/L (3.5-5.1); pH 7.37 (7.35-7.45)
[2024-09-07] MEDS: SUBLIMAZE 50 MCG IV (13:16)
[2024-09-07] MEDS: MORPHINE SULFATE 2 MG IV ×3 (14:11→20:45)
--- NOTE | 2024-09-07 14:43 | PTCARENOTE ---
ekg changes noted on monitor. Patient reporting chest pain persisting despite fentanyl and morphine given. Nausea. dry heaving. diaphoretic. Increased pain radiating down L arm and into jaw. aware. Sangeetha STEAM TURBINE OPERATOR at bedside with Dr iyer. ekg done.
Placed on 15 L midlfow. 94% sao2
[2024-09-07] MEDS: HEPARIN 4000 UNITS IV (14:53)
--- NOTE | 2024-09-07 15:00 | PTCARENOTE ---
taken back to slab installer for Chest pain/ekg changes.
--- NOTE | 2024-09-07 15:20 | W.PN.UPDATE ---
Update Note
Progress Note Update
Called to bedside for patient who was having ongoing chest discomfort. Discomfort /10 initially some improvement after nitroglycerin sublingual then patient was placed on a drip. ECG shows sinus rhythm with anterior and lateral ST elevation and
inferior depression. Patient had baseline residual ST elevation this morning but degree of ST elevation anteriorly is more prominent than earlier today. Patient was initially hypertensive but then after titration of IV IV nitro SBP in the low 100s
and upper 90s. Even prior to my arrival Real Estate Professional had been notified and I verified with Dr. Rock that we agreed to bring the patient back to the Real Estate Professional for repeat catheterization. Issues were reviewed with both the patient and his at the
bedside and consent was obtained. On exam patient was still having ongoing chest discomfort respiratory status was stable with adequate oxygenation cardiac exam regular with no new murmurs and groin cath site appeared stable. Plan for emergent
cardiac catheterization by Dr. Ptits.
.
critical crare time 30 min
--- NOTE | 2024-09-07 16:08 | CM ---
Addendum entered by Shilpa Moise 09/07/24 16:30:
Telephone call to [employer] ,([phone]) to check on coverage for Farxiga, Entresto and Brilinta. His co-pay for Farxiga is zero co-pay, Brilinta co-pay is zero and Entresto co-pay is $10.00 a month.
Original Note:
Reviewed chart. Tried to see Mr. Lim and he was going the the [employer]. Will try to see him later.
[2024-09-07] MEDS: CORDARONE 518 MG IV (18:10)
[2024-09-07] MEDS: KENGREAL 255 MCG IV (18:13)
--- NOTE | 2024-09-07 18:20 | PTCARENOTE ---
received patient back into room s/p section laborer x3 stents to LAD and thombus evacuation. Out now on Amiogtt, nitro gtt @100, integrilin @ 17, and Cangrelor @ 0.75. NSR HR 90-100s on monitor. BP 110 sys . 95% on 8L midflow. CP remains at 4/10. will
continue to monitor.
[2024-09-07] MEDS: LIPITOR 80 MG PO (18:31)
[2024-09-07 18:43] LABS: Glucose - Point of Care 130 mg/dl (70-99)
--- NOTE | 2024-09-07 19:00 | PTCARENOTE ---
bedside report received from previous RN, assumed care of pt. pt in bed, AAOx4, family at bedside. pt reports some mild generalized soreness at his chest. pt denies previous feeling of severe CP radiating to neck/arm/jaw. Integrilin gtt, Cangrelor
gtt, Amio gtt, and Nitro gtt infusing. weaning Nitro gtt as tolerated. NSR on monitor, HR 80s-100s. B/L radial and DP pulses palpable. right groin site CDI. left groin site w small amount of drainage--area marked. heart tones clear. RIJ cordis and
swan intact. last CI 3.72. PAP 30s/20s. CVP ~10-11. B/L breath sounds diminished throughout. POX 93% on 6LNC. coughing and deep breathing encouraged. bowel sounds present. pt denies any nausea. tolerating water. farmer catheter intact, draining
yellow urine w sediment. UO adequate. pt turned and repositioned. see MAR for medication administration. see worklist for full assessment, VS, and interventions.
--- NOTE | 2024-09-07 19:20 | ITS.CL.ANGIO ---
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
Angioplasty
Procedure Report:
CARDIAC CATHETERIZATION REPORT
Date of Procedure: 09/07/2024
Referring: Marquise Avina M.D.
INDICATION: Recurrent chest pain with dynamic ST elevation after anterior STEMI.
PROCEDURE:
1. Coronary angiography.
2. Aspiration thrombectomy using an JUDD device.
3. JUDD thrombectomy using a penumbra device.
4. Intravascular ultrasound.
5. Successful PCI of the mid LAD.
6. Successful PCI of the proximal LAD.
A total of 88 minutes of procedural/moderate sedation was utilized. An independent medical management trainer was present to assist with and help manage the patient's level of consciousness and physiologic status.
ACCESS:
1. 6 [place]ian left common femoral artery using a modified Seldinger technique with a micropuncture under ultrasound guidance.
CATHETERS:
1. 5 [place]ian JL 4.
2. 6 [place] XB 4 guiding catheter.
HEMODYNAMIC DATA
Weight (kg): 104.8
AO (s/d/x, mmHg): 100/70/80
LV (s/x mmHg): Not obtained.
LEFT VENTRICULOGRAPHY: Not performed.
CORONARY ANGIOGRAPHY
Dominance: Left.
Left Main: Short but wide, bifurcating vessel. There is no coronary artery disease.
LAD: Normal size vessel giving rise to 2 diagonals. An acutely thrombosed stent is visible in the mid vessel.
Ramus: Congenitally absent.
Circumflex: Large size, dominant vessel giving rise to 2 obtuse marginals before terminating as a left posterior descending artery. There is no coronary artery disease.
RCA: Not injected. Known to be a small size, nondominant vessel.
INTERVENTION(S)
1. Successful aspiration thrombectomy using an JUDD device.
2. Successful aspiration thrombectomy using a penumbra device.
3. Intravascular ultrasound.
4. Successful PCI of the mid LAD, extending the previously stented segment out of concern for possible distal edge dissection (Xience Skypoint 3.0 x 15 MINDI, postdilated with a 3.0 NC balloon throughout and a 3.75 NC balloon in the proximal margin
at the overlap).
5. Successful PCI of the previously stented segment (Xience Skypoint 4.0 x 23 MINDI, postdilated with a 4.5 NC balloon).
6. Successful PCI of the proximal LAD, extending the stented segment more proximally (Xience Skypoint 4.5 x 15 MINDI, postdilated with a 4.5 NC balloon).
Narrative:
The decision was made to proceed with percutaneous coronary intervention. The diagnostic catheter was removed over a wire and a 6Fr XB 4 guiding catheter was advanced to the aortic root and seated in the left main coronary artery. Additional heparin
was given and a Power Turn Flex wire was advanced into the LAD, but had significant difficulty crossing the LAD lesion. This was concerning as acute thrombosis is typically quite soft allowing for a wire to traverse easily. A quickcross
microcatheter was advanced with GuideLiner support. With the GuideLiner and quick cross microcatheter in place, the power turn flex wire was removed and a whisper wire was advanced through the microcatheter. The whisper wire was able to traverse
the LAD stent and into the distal LAD. This was confirmed by advancing the quick cross microcatheter into the distal LAD without resistance. The quick cross microcatheter and GuideLiner were removed.
The decision was made to perform aspiration thrombectomy. Eptifibatide was given as a double bolus and drip. The second bolus was given as a direct infusion into the coronary artery. An JUDD catheter was prepped and flushed on the back table then
connected to a syringe which was pulled to negative. The catheter was advanced into the mid LAD. The stopcock was opened to the vacuum syringe and the catheter was passed through the thrombotic segment. The catheter was withdrawn from the guiding
catheter, maintaining negative pressure. The contents were emptied into the filter basket. The contents included several pieces of dark red thrombus. Angiography showed no significant change in the thrombus burden. The decision was made to
proceed with aspiration thrombectomy with a penumbra/CAT Rx device. The penumbra/CAT Rx catheter was advanced over the wire and into the LAD after being connected to the suction canister. With the canister on active suction, the valve was opened
and aspiration thrombectomy was performed in the LAD. The penumbra/CAT Rx catheter was slowly withdrawn through the XB 4 and removed. Copious drawback was performed on the manifold to ensure that there were no remnants of thrombus remaining within
the guide catheter itself. Examination of the contents of the penumbra/CAT Rx catheter demonstrated a 4+ centimeter red thrombus. Angiography was performed which demonstrated reperfusion of the LAD, now with SAIDA I-II flow.
The stent thrombosis lesion was predilated with a 4.0 x 12 semi-compliant balloon to 16 adama, improving flow in the LAD to reliably SAIDA II.
The decision was made to perform intracoronary imaging. An IVUS catheter was advanced through the guiding catheter and into the ostium of the artery. Ring down was performed once the imaging crystal was no longer inside of the guiding catheter. The
IVUS catheter was advanced into the mid LAD, beyond the stented segment. Intravascular ultrasound was performed in a retrograde fashion using a slow pullback. Intracoronary imaging demonstrated evidence of thrombosis within the stent. There was
generally poor resolution, though we could not entirely rule out edge dissection of the distal aspect of the previously stented segment. The stented segment itself appeared well-expanded and well apposed. At this point, there was high concern for
ticagrelor failure. Cangrelor was ordered as a drip for full antiplatelet effect with an intention to transition to prasugrel.
The decision was made to extend the stented segment more distally to resolve any potential edge dissection. The IVUS catheter was removed and a Xience Skypoint 3.0 x 15 drug-eluting stent was advanced. Meticulous care was taken while positioning
the stent, ensuring that the area in question was adequately covered while the stent overlapped the distal margin of the previous stent. The stent was deployed at 12 atmospheres. The stent balloon was removed. A 3.75 x 8 noncompliant balloon was
advanced into the stent and the proximal stent margin stent was postdilated to 14 atmospheres. Angiography showed improved flow in the LAD, now SAIDA-3, though there was notable thrombus burden in the second diagonal.
At this point, our initial intention was to repeat angioplasty to improve the thrombus burden in an attempt to avoid repeat PCI. A 4.0 x 12 NC balloon was advanced into the overlap of the distal stent and the more proximal stent and was postdilated
to 12 adama. The mid stent was postdilated to 15 adama. The 4.0 x 12 NC balloon was withdrawn and a 4.5 by NC balloon was advanced. The entire proximal stent was postdilated to 14 adama. The noncompliant balloon was removed. In spite of these
repeated inflations, evidence of stent thrombosis still remained with haziness inside the stented segment. After conferring with Dr. Morataya, the decision was made to proceed with repeat PCI. A Xience neo point 4.0 x 23 drug-eluting stent was
advanced into the stented segment. The stent was deployed at 12 adama. The 4.5 x 12 NC balloon was readvanced and the stented segment was postdilated to 15 adama. The noncompliant balloon was withdrawn and angiography was repeated, demonstrating a
good result in the midportion of the stented segment but residual evidence of thrombosis in the proximal stented segment that was not covered by the new stents. The decision was made to extend the stent proximally. A Xience Skypoint 4.5 x 15
drug-eluting stent was advanced. Meticulous care was taken while positioning the stent, ensuring that the new stent would into many residual thrombus and extend the stent proximally but would not interfere with any branch vessels. We were
satisfied with our position, the stent was deployed at 12 adama. The stent balloon was withdrawn and the 4.5 x 12 noncompliant balloon was again advanced. The proximal stented segment was postdilated to 14 adama, including at the stent overlap.
The noncompliant balloon was withdrawn. IVUS was repeated, demonstrating excellent stent expansion and apposition within the entire stented segment. There was no IVUS evidence of residual thrombus.
Angiography was performed in orthogonal views, confirming good stent expansion and an excellent angiographic result. The coronary wire was withdrawn and the guide was disengaged from the artery. The catheter was removed over a standard J-wire.
Closure Device: Perclose device.
Radiation (mGy): 1699
DAP (cm2.Gy): 125
Fluoroscopy time (minutes): 23.3
CONCLUSIONS
1. Left dominant circulation with acute stent thrombosis of the previously placed mid LAD stent, status post successful aspiration thrombectomy using an JUDD catheter and penumbra device, IVUS showing IntraStent thrombus with concern for possible
distal edge dissection, status post successful PCI of the mid LAD extending the stented segment to cover any possible dissection (Xience Skypoint 3.0 x 15 MINDI, postdilated with a 3.0 NC balloon throughout and a 3.75 NC balloon in the proximal
margin/overlap) resulting in partial occlusion of the second diagonal, repeated PTCA of the thrombotic mid stent and proximal stent portions (4.0 x 12 NC and 4.5 x 12 NC balloons), repeat PCI of the previously stented segment (Xience Skypoint 4.0 x
23 MINDI, postdilated with 4.0 and 4.5 NC balloons) and successful PCI of the proximal LAD, extending the stented segment more proximally (Xience Skypoint 4.5 x 15 MINDI, postdilated with a 4.5 NC balloon) with reduction in the LAD stenosis to 0%,
resolution of thrombosis and anabaptism of SAIDA-3 flow.
2. High suspicion for ticagrelor failure.
RECOMMENDATIONS:
1. Expectant management after cardiac catheterization via left common femoral approach.
2. Limited weight bearing for one week.
3. Antiplatelet therapy with aspirin, eptifibatide and cangrelor. Plan to load with prasugrel 60 mg approximately 24 hours after last ticagrelor dose.
4. Cautious titration of nitroglycerin and hemodynamic drips to maintain freedom from chest pain without hemodynamic compromise.
5. Inotropic/pressor support to maintain MAP greater than 65 mmHg, cardiac index >1.8 L/min/m�.
Copy to: James Barrera M.D., PhD
Nitish Pitts, DO, FACC, FACP
[2024-09-07 19:28] LABS: Troponin I > 400.000 ng/ml
[2024-09-07] MEDS: ENTRESTO 24 MG/26 MG 1 TAB PO (20:44)
[2024-09-07] MEDS: COREG 3.125 MG PO (20:44)
[2024-09-07] MEDS: TYLENOL 1000 MG PO (20:45)
[2024-09-07] MEDS: INTEGRILIN 100 IV (22:47)
[2024-09-07 22:50] LABS: Mixed Venous O2 Saturation 67.8 %
[2024-09-07] MEDS: VANCOCIN 530 MG IV (22:50)
[2024-09-07] MEDS: STERILE WATER FOR INJECTION 10 ML IV (22:51)
[2024-09-07] MEDS: MAXIPIME 1000 MG IV (22:51)
[2024-09-07 22:56] LABS: % Basophils 0.2 % (0-2); % Immature Granulocytes 0.6 % (0-0.5); % Lymphocytes 5.9 % (20.5-51.1); % Monocytes 11.1 % (1.7-9.3); % Neutrophils 82.2 % (42.2-75.2); Absolute Immature Granulocytes 0.1 10^3/uL (0-0.05); Absolute Lymphocytes 1.1 10^3/uL (1.2-3.4); Absolute Neutrophils 14.6 10^3/uL (1.4-6.5); Hematocrit 34.7 % (39.0-52.0); Hemoglobin 11.7 g/dL (13.0-18.0); Mean Corp Hgb Conc. 33.7 g/dL (33.0-37.0); Mean Corpuscular Hgb 28.5 pg (27.0-31.0); Mean Corpuscular Volume 84.6 fL (80.0-94.0); Mean Platelet Volume 9.3 fL (7.4-10.4); Nucleated Red Blood Cells % 0 % (-); Platelet Count 160 10^3/uL (130-400); Red Cell Dist. Width 14.7 % (11.5-14.5); White Blood Cell Count 17.8 10^3/uL (4.8-10.8)
[2024-09-07 23:00] VITALS: BP 95/54
--- NOTE | 2024-09-07 23:00 | PTCARENOTE ---
discussed pt status w Dr. Barrera. orders received for blood work--drawn and sent. orders received for CXR to confirm swan placement. orders received for blood cultures and urine culture d/t fever. pt started on empiric antibiotics. otherwise
assessment unchanged. SR/ST 80s-100s. POX 97% on room air. CI > 2. continuing to wean Nitro as tolerated. Integrilin, Cangrelor, and Amio gtts maintained. UO WNL. all surgical sites stable. pt sleeping between care.
[2024-09-07 23:01] LABS: INR 1.59; Lactic Acid 1.4 mmol/L (0.7-2.0); PT 19.5 Sec (11.4-14.6)
[2024-09-07 23:02] LABS: APTT 40.5 Sec (23.4-35.0)
[2024-09-07 23:03] LABS: Magnesium 1.6 mg/dl (1.6-2.3)
[2024-09-07 23:21] LABS: Procalcitonin 3.74 ng/ml (0.0-0.25)
[2024-09-07 23:37] LABS: Troponin I > 400.000 ng/ml
[2024-09-08] VITALS (25 sets, daily range): BP systolic 98–130; BP diastolic 54–73; BMI 35.5
[2024-09-08] MEDS: MORPHINE SULFATE 2 MG IV ×6 (00:31→21:15)
[2024-09-08 00:39] LABS: Glucose - Point of Care 125 mg/dl (70-99)
[2024-09-08] MEDS: MELATONIN 5 MG PO (01:10)
--- NOTE | 2024-09-08 03:00 | PTCARENOTE ---
no acute changes, VSS. SR/ST 80s-100s. POX 96% on 4LNC. continuing to wean Nitro gtt as tolerated. pt denies any CP. Integrilin, Cangrelor, and Amio gtts maintained. CI > 2. UO adequate. temp trending down--currently 100.0. all surgical sites
stable. pt sleeping between care.
[2024-09-08] MEDS: KENGREAL 255 MCG IV (03:11)
[2024-09-08 04:37] LABS: Hematocrit 33.8 % (39.0-52.0); Hemoglobin 11.3 g/dL (13.0-18.0); Mean Corp Hgb Conc. 33.4 g/dL (33.0-37.0); Mean Corpuscular Hgb 28.5 pg (27.0-31.0); Mean Corpuscular Volume 85.4 fL (80.0-94.0); Mean Platelet Volume 9.6 fL (7.4-10.4); Platelet Count 150 10^3/uL (130-400); Red Blood Cell Count 3.96 10^6/uL (4.70-6.10); Red Cell Dist. Width 14.7 % (11.5-14.5); White Blood Cell Count 14.6 10^3/uL (4.8-10.8)
[2024-09-08 05:06] LABS: ALT (SGPT) 207 U/L (0-50); Albumin 2.9 g/dl (3.5-5.0); Alkaline Phosphatase 42 U/L (38-126); Blood Urea Nitrogen 20 mg/dl (9-20); Calcium 7.8 mg/dl (8.4-10.2); Carbon Dioxide 26 mmol/L (22-30); Chloride 104 mmol/L (98-107); Estimated Creatinine Clearance 66 ml/min; Glucose 140 mg/dl (70-99); Magnesium 1.6 mg/dl (1.6-2.3); Potassium 4.3 mmol/L (3.5-5.1); Sodium 133 mmol/L (135-145); Total Bilirubin 1.6 mg/dl (0.2-1.3); Total Protein 5.4 g/dl (6.3-8.2); eGFR 52.49
[2024-09-08 05:16] LABS: AST (SGOT) 1096 U/L (17-59); Fibrinogen 458 MG/DL (199-459); INR 1.65; PT 20.1 Sec (11.4-14.6)
[2024-09-08 05:19] LABS: D-Dimer 1.98 ug/mlFEU (0.00-0.50)
[2024-09-08] MEDS: INTEGRILIN 100 IV ×2 (05:25→11:22)
[2024-09-08] MEDS: MAXIPIME 1000 MG IV ×3 (05:26→20:14)
[2024-09-08] MEDS: STERILE WATER FOR INJECTION 10 ML IV ×3 (05:27→20:14)
[2024-09-08] MEDS: TYLENOL 1000 MG PO ×3 (06:12→23:31)
--- NOTE | 2024-09-08 06:24 | ECGCV ---
Kesha Balderas notified of ECG critical value identified by electronic interpretation on ECG completed on 09/08/24, at 0618.
--- NOTE | 2024-09-08 08:00 | PTCARENOTE ---
Patient received from night shift supervisor resting in bed, sleepy but arousable and appropriate. at bedside. NSR-ST via cm, Sao2 @ 95% on 2lnc. RIJ Cordis/[place]-Reanna catheter, R radial arterial lines present - leveled, flushed, and calibrated w/good
waveforms returned. Dr. Barrera to bedside, updated to status. R groin site cdi, no ecchymosis or hematoma noted. L groin w/scant old drainage. Distal pulses palp b/l. Advised d/c amiodarone infusion at present time. Patient c/o chest discomfort
from recent CPR, medicated for such. Mazariegos catheter to gravity. See work list for full assessment, interventions performed, and intravenous infusion rates and titrations.
[2024-09-08 08:06] LABS: ACT-LR - POC > 397 Seconds (116-155)
[2024-09-08 08:06] LABS: ACT-LR - POC > 397 Seconds (116-155)
--- NOTE | 2024-09-08 08:22 | PN.DE.MGMTRT ---
Insulin Management
- -
09/08/2024 Diabetes Management Consult Follow up
Patient admitted 09/06 s/p c/o chest pain. Within minutes of arrival to ED was unresponsive - cardiac arrest. PMH HTN, GERD, renal ca - resectioned. No diabetes mentioned or diabetes medications. A1C 5.6%, cr 2.1, eGFR 37.88.
Patient is s/p cardiac cath with stent LAD, with Impella.
Patient extubated 09/07, is awake alert and orient. at bedside, very supportive. States patient has no history of diabetes himself or in his family. Insulin infusion never started, discontinued. Required no corrective insulin.
Will follow
Discussed with nurse.
Diabetes History
- -
Pre-Admission Diabetes Regimen
09/08/24
04:17
Creatinine 1.6 H
Lab Results
Hemoglobin A1c Cancelled 09/06/24 18:06
Insulin Pump Settings
IP Diabetes Regimen
09/07/24 09/07/24 09/07/24
08:39 11:57 18:42
Glucose
POC Glucose 109 H 107 H 130 H
09/08/24 09/08/24
00:37 04:17
Glucose 140 H
POC Glucose 125 H
Meal type: Dinner
Amount consumed: 0
Patient Education
[2024-09-08] MEDS: EFFIENT 60 MG PO (08:30)
[2024-09-08] MEDS: MYRBETRIQ EXTENDED RELEASE 50 MG PO (08:32)
[2024-09-08] MEDS: MIRALAX 17 GRAMS TUBE (08:32)
[2024-09-08] MEDS: EFFEXOR XR 150 MG PO (08:33)
[2024-09-08] MEDS: COREG 3.125 MG PO (08:38)
[2024-09-08] MEDS: ENTRESTO 24 MG/26 MG 1 TAB PO ×2 (08:38→22:13)
[2024-09-08] MEDS: LOW STRENGTH ASPIRIN 81 MG TUBE (08:38)
[2024-09-08] MEDS: FARXIGA 10 MG PO (08:38)
--- NOTE | 2024-09-08 08:47 | W.PN.INTV ---
Addendum entered and electronically signed by Brittney Dc MD 09/09/24 13:05:
- Patient transferred out of ICU
- Agree with stopping antibiotics and monitor
- [employer] service will sign off, please call as needed
Original Note:
Today's Communication / Plan
Recommendations
- Continue vancomycin and cefepime, follow-up on urine and blood cultures
- Monitor renal function closely, strict input and output
- Monitor liver function tests
Assessment
-
Patient is a 49-year-old gentleman who presented to the emergency room complaining of chest pain. Reportedly pain developed after he was lifting concrete earlier this morning. Patient was noted to be diaphoretic and while he was being triaged he
became unresponsive. Patient was noted to be in ventricular fibrillation and was defibrillated and CPR was initiated. During ED course, patient was intubated, mechanically ventilated and required at least 2 defibrillations for ventricular
fibrillation and reportedly he later developed ventricular tachycardia also. Patient received amiodarone as well as rounds of epi and Afrin. 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 Patient had PCI
performed of LAD and Impella placed and was then admitted to cardiovascular ICU. [employer] consultation was requested for further input.
#1. Anterior wall STEMI complicated by Cardiac arrest due to Ventricular Fibrillation/Ventricular Tachycardia
- CPR was initiated in ED, received defibrillation, Amiodarone, Epinephrine, Lidocaine, cardioversion . Intubated in emergency room. ROSC achieved. Successfully extubated 09/07/2024
- s/p emergent PCI with MINDI in LAD (100% mid-LAD occlusion), Impella placement (09/06/2024), removed on 09/07/2024.
- Chest pain and dynamic ST changes 09/07, taken to laborer pipelines, acute stent thrombosis in mid LAD stent (? Ticagrelor failure), s/p aspiration thrombectomy and PCI of proximal LAD and PCI of previously stented segment
- Currently on Integrilin and cangrelor infusions. Eventually plan for aspirin/prasugrel dual therapy.
#2. Cardiogenic shock with acute ischemic cardiomyopathy, HfrEF, LVEF 20-25%
- s/p Impella placement 09/06/24, removed 09/07/2024
- MAP 88 this morning, CVP 15, [place]-Reanna readings 43 x 25, mean PA pressure 33. Patient not needing any pressors currently and Impella has been removed.
- Mild pulmonary edema noted on chest x-ray, fluid balance, +319 mL
#3. Fever, starting 09/07/2024
- Suspect related to myocardial infarction and recent CPR
- Patient has been started on empiric vancomycin and cefepime, continue for now
- Follow-up blood cultures and urine cultures, if no growth in 48 hours, will discontinue antibiotics
- Chest x-ray not suggestive of pneumonia, mild fluffy infiltrates more suggestive of pulmonary edema
#4. Acute respiratory failure, patient was intubated in the setting of cardiac arrest/CPR
- Successfully extubated 09/07/2024
#5. CHETAN with elevated AST/ALT
- Creatinine peaked at 2.1, down to 1.6 today. Suspect this is related to cardiogenic shock
- Continue to monitor input and output closely, monitor labs
- Liver enzyme elevation likely related to shock liver, follow-up labs in a.m.
#6. h/o JALIL
- Nightly CPAP
- No prior history of smoking however patient chews tobacco
- Outpatient follow-up with sleep clinic
Other medical diagnoses:
-HTN
-GERD
-H/o Renal Cancer, Right Side - Resection x 2
Critical Care time 56 mins -- The patient is admitted for acute critical illness for the treatment of vital organ failure and/or prevention of further life-threatening conditions. Total care includes time spent in review of history, physical exam,
medications, hemodynamic/ventilator parameters, laboratory data, imaging and discussion with house staff, pharmacy, respiratory therapy, government clerk, and nursing.
Data:
ECHO 08/2024: Severely reduced left ventricular systolic function. Left ventricular ejection
fraction is 20-25%.
Hypokinesis of the mid to apical anterior segments, mid to apical septal
segments, apical inferior and apical lateral segments, and apex.
Impella visualized crossing aortic valve into LV.
No significant valve disease.
Cardiac cath 08/2024: 1. Coronary artery disease as described with culprit 100% occlusion of the mid LAD
2. Successful Impella placement for cardiogenic shock and support of subsequent PCI
3. Successful IVUS guided PCI to the mid LAD with placement of a 3.5 x 22 mm [place] frontier drug-eluting stent postdilated to 4 mm distally and 4.5 mm proximally
4. Right heart cath (on Impella support) demonstrating elevated biventricular filling pressures, moderate postcapillary pulmonary hypertension, and normal cardiac output. mPA 30, PVR 1.6, PCWP 23
Subjective Dataa
Subjective Data
Date of Service:
Date of Service: September 08, 2024
Subjective:
Patient comfortably lying in bed in no acute distress. Mild soreness at the site of CPR.
Review of Systems
Genitourinary: Other (All 14 systems reviewed and negative except as stated above in the history of present illness.)
Objective Data
Data Reviewed
Vital Signs / I&O / Oxygen:
Vital Signs
Temp Pulse Resp BP Pulse Ox
100.7 F H 104 24 125/71 94
09/08/24 08:00 09/08/24 08:38 09/08/24 08:15 09/08/24 08:38 09/08/24 08:15
Intake and Output
09/07/24 09/08/24 09/09/24
06:59 06:59 06:59
Intake Total 2890.8 / 2986.0 1875.1 / 1875.1 60.9 / 60.9
Output Total 1615 / 1715 1545 / 1545 40 / 40
Balance 1275.8 / 1271.0 330.1 / 330.1 20.9 / 20.9
SaO2 [CPAP] 98
SaO2 [A/C] 97
SaO2 [SIMV] 87
SaO2 94
Nasal Cannula flow liters per 2
minute
Physical Exam
General: Comfortable
HEENT: Normocephalic
Cardiovascular: S1-S2 and Peripheral Edema (None)
Respiratory: Non-Labored Respirations
GI: Soft and Non Distended
Neurology: Awake and Alert
Skin: Warm
Labs/Micro/Reports
Lab Data
09/08/24 04:17
09/08/24 04:17
Laboratory Results
09/07/24 09/07/24 09/07/24
11:54 13:00 22:22
PT 19.5 H
INR 1.59
APTT Cancelled 40.5 H
pH 7.37
pCO2 43
pO2 131 H
HCO3 24.9
O2 Delivery Level
09/08/24
04:17
PT 20.1 H
INR 1.65
APTT
pH
pCO2
pO2
HCO3
O2 Delivery Level
[2024-09-08] MEDS: PREVACID TUBE (09:36)
--- NOTE | 2024-09-08 10:03 | W.PN.UPDATE ---
Update Note
Progress Note Update
Brief note, full note to follow later. Patient doing well overnight. He received Prasugrel load this AM and cangrelor turned off. Integrillin will be turned off at 2 PM. Chest pain improved, now with nitro weaned off. PA pulsatility and RA pressure
improving. Mazariegos now out with patient able to void. Will trend hemos and afternoon labs, then make decision about removing swan and moving out of ICU. Will get TTE with contrast to r/o LV thrombus and examine wall motion. Will get heme consulted
given IST without explaination.
[2024-09-08 10:36] LABS: Vancomycin Random 5.4 ug/ml
--- NOTE | 2024-09-08 10:50 | CARDSERVLU ---
Echocardiogram with Lumason completed after protocol screening completed. Allergies verified.
Patent IV site: _R upper cordis____
IV site flushed with 0.9% NaCl pre and post administration.
Diluted bolus method utilized to enhance visualization of ventricular beltran.
Total volume given: _6.5___ mL
Patient tolerated all procedures well without complications.
--- NOTE | 2024-09-08 11:10 | PHA.VAN.IN ---
Assessment
- Assessment
Renal Function: Unknown baseline
Concomitant Antimicrobials: cefepime
Laboratory Tests
09/08/24
10:08
Random Vancomycin 5.4
Drawn ~11H after initial dose of 1500mg
Plan
- Plan
Initial / Loading Dose: 1500mg - 09/07 2250
Maintenance Regimen: dosing by level
Monitoring: random 09/09 06
MRSA Screen: Ordered per protocol
Did not receive full loading dose yesterday
Unclear baseline renal function - will give another 15mg/kg today and continue to follow levels
Pharmacokinetics Vancomycin I
- -
Patient Age: 49
Patient Sex: Male
Vancomycin Day #: 2
Indication: Other
Requesting Provider: Dr. Dc
Pertinent Antimicrobial Allergies:
no pertinent antibiotic allergies
Height / Weight:
Height 5 ft 8 in
Actual Weight 105.8 kg
Pertinent Past Medical History: BMI ~35.5
- Vital Signs / Lab Results
Temp Pulse Resp BP Pulse Ox
100.6 F H 105 18 125/71 96
09/08/24 10:00 09/08/24 10:00 09/08/24 10:00 09/08/24 08:38 09/08/24 09:45
Lab Results - Hematology
09/06/24 09/06/24 09/06/24
11:25 14:35 15:43
WBC 7.5 16.6 H 15.1 H
09/07/24 09/07/24 09/08/24
03:16 22:22 04:17
WBC 11.8 H 17.8 H 14.6 H
Lab Results - Chemistry
09/06/24 09/06/24 09/06/24
11:24 14:35 15:43
BUN 14 Cancelled 20
Creatinine 1.5 H Cancelled 1.6 H
Estimated Creat Clear Cancelled 66
Albumin 4.8 Cancelled 3.9
09/06/24 09/07/24 09/08/24
21:32 03:16 04:17
BUN 23 H 23 H 20
Creatinine 2.0 H 2.1 H 1.6 H
Estimated Creat Clear 52 50 66
Albumin 3.5 2.9 L
09/06/24 09/06/24 09/06/24
12:20 14:35 18:06
Lactic Acid 15.2 H* 5.0 H* 1.7
09/06/24 09/07/24 09/07/24
21:32 03:16 08:36
Lactic Acid 1.1 1.1 1.1
09/07/24 09/07/24
15:00 22:22
Lactic Acid Cancelled 1.4
[2024-09-08] MEDS: PROTONIX 40 MG PO (11:24)
[2024-09-08 11:27] LABS: Glucose - Point of Care 136 mg/dl (70-99)
--- NOTE | 2024-09-08 11:49 | CM ---
Reviewed chart. Met with and Mrs. Lim to review discharge plans. Mr. Lim was sleeping. Spouse states they readies together in a raised rancher with three steps to enter. He has a family room, walk in shower in the basement. His one
child resides next door to him and his 16 year old is still in the home. Prior to admission he was independent with ambulation and adls. He has a CPAP Machine at home. He has a prescription plan with [employer] and uses [facility]. Telephone
call to his insurance to check on coverage for Prasugrel. Hehas coverage and a zero co-pay. Will need to see his current functional level to see if he will have any skilled care needs. Medical work-up in progress. The discharge plan is
undetermined at this time.
[2024-09-08] MEDS: VANCOCIN 530 MG IV (11:57)
--- NOTE | 2024-09-08 12:33 | PTCARENOTE ---
Patient resting comfortably, denies pain. NSR-ST via cm. Having a small amount lunch. at bedside.
[2024-09-08 13:31] LABS: Lactic Acid 1.2 mmol/L (0.7-2.0)
[2024-09-08 13:44] LABS: ALT (SGPT) 178 U/L (0-50); Alkaline Phosphatase 42 U/L (38-126); Blood Urea Nitrogen 18 mg/dl (9-20); Calcium 7.7 mg/dl (8.4-10.2); Carbon Dioxide 24 mmol/L (22-30); Chloride 104 mmol/L (98-107); Direct Bilirubin 0.4 mg/dl (0.0-0.4); Estimated Creatinine Clearance 70 ml/min; Glucose 123 mg/dl (70-99); Potassium 4.2 mmol/L (3.5-5.1); Sodium 132 mmol/L (135-145); Total Bilirubin 1.7 mg/dl (0.2-1.3); Total Protein 5.5 g/dl (6.3-8.2); eGFR 56.72
[2024-09-08 14:31] LABS: AST (SGOT) 788 U/L (17-59)
--- NOTE | 2024-09-08 14:58 | CON.ONC ---
Consultation
-
Date Consultation Requested: 09/08/24
Date Consultation Performed: 09/08/24
Reason for Consultation: Atypical thrombosis
Impression
Impression
Anterior wall myocardial infarction
Stent with reocclusion
Anemia
Leukocytosis
Acute renal insufficiency
Elevated LFTs
Hypertension
GERD
Status post right renal cell carcinoma post resection
Plan
Plan
Atypical thrombosis evaluation
Lupus anticoagulant, anticardiolipin antibody, beta-2 glycoprotein antibody and prothrombin gene mutation
Monitor CBC
Patient History
History of Present Illness
Patient is a 49-year-old gentleman who presented to the emergency room complaining of chest pain. Reportedly pain developed after he was lifting concret. Patient was noted to be diaphoretic and while he was being triaged he became unresponsive.
Patient was noted to be in ventricular fibrillation and was defibrillated and CPR was initiated. During ED course, patient was intubated, mechanically ventilated and required at least 2 defibrillations for ventricular fibrillation and reportedly he
later developed ventricular tachycardia also. Patient was diagnosis anterior wall myocardial infarction was taken to the to the Human Resource Professional where a PCI performed of LAD and Impella placed and was then admitted to cardiovascular ICU. Subsequently he
suffered reocclusion within 24 hours of the procedure requiring aggressive anticoagulation prompting a consultation to hematology to evaluate for atypical thrombophilia.
Past-Medical/Surgical History
Past Medical History
Past Medical History: Reports Other (HTN, GERD, Renal Ca, Right Side - Resection x 2, Torn Biceps, Torn Deltoid; No known DM history. )
Past Surgical History: Reports Other (Renal Ca, Right - Resection x 2; Torn Deltoid s/p Surgery, B/L Biceps Tendon Repair, Abdominal Hernia)
Social History
Tobacco: Other (Chews Tobacco)
Alcohol: Other (Social ETOH use)
Drug: Other
Personal:
Living: With Family
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
Patient Medication
�Medication �Instructions �Recorded �Confirmed �Last Taken �Type
amlodipine-valsartan 1 tab PO DAILY 09/06/24 09/06/24 09/06/24 History
mirabegron 50 mg tablet,extended mg PO 09/06/24 09/06/24 History
release 24 hr (Myrbetriq)
omeprazole 40 mg capsule,delayed 40 mg PO DAILY Gastrointestinal 09/06/24 09/06/24 09/06/24 History
release Issue
venlafaxine 150 mg tablet,extended 150 mg PO DAILY Mental 09/06/24 09/06/24 09/06/24 History
release 24 hr Health/Anxiety
zolpidem 10 mg tablet (Ambien) 10 mg PO HS PRN insomnia 09/06/24 09/06/24 09/05/24 History
Active Medications
Generic Name Dose Route Start Last Admin
Trade Name Freq PRN Reason Stop Dose Admin
Acetaminophen 1,000 mg 09/07/24 14:07 09/08/24 12:57
Acetaminophen 500 Mg Tablet PO 10/05/24 14:06 1,000 mg
Q6HPRN PRN Administration
Fever, mild pain
Aspirin 81 mg 09/07/24 08:00 09/08/24 08:38
Aspirin 81 Mg Chewable Tablet TUBE 10/05/24 07:59 81 mg
DAILY CHARMAINE Administration
Atorvastatin Calcium 80 mg 09/07/24 14:05 09/07/24 18:31
Atorvastatin (Lipitor) 80 Mg Tablet PO 10/04/24 17:59 80 mg
QPM CHARMAINE Administration
Carvedilol 3.125 mg 09/07/24 20:00 09/08/24 08:38
Carvedilol 3.125 Mg Tablet PO 10/05/24 19:59 3.125 mg
BID CHARMAINE Administration
Cefepime HCl 1,000 mg 09/07/24 22:00 09/08/24 13:57
Cefepime Hcl 1,000 Mg/11.3 Ml Vial IV 1,000 mg
Q8H CHARMAINE Administration
Dapagliflozin 10 mg 09/08/24 08:00 09/08/24 08:38
Dapagliflozin (Farxiga) 10 Mg Tablet PO 10/06/24 07:59 10 mg
DAILY CHARMAINE Administration
Dextrose 12.5 grams 09/06/24 17:44
Dextrose 50% (0.5 Grams/Ml) 50 Ml Syringe IV 10/04/24 17:43
[id number] PRN
Blood Glucose < 70
Norepinephrine Bitartrate 4 mg in 250 mls @ 0 mls/hr 09/06/24 14:30
Levophed IV
PER PROTOCOL CHARMAINE
Protocol
Per Protocol
Nitroglycerin/Dextrose 100 mg in 250 mls @ 0 mls/hr 09/07/24 14:30
Nitroglycerin Premix IV
PER PROTOCOL CHARMAINE
Protocol
Per Protocol
Insulin Aspart 0 units 09/07/24 12:00 09/08/24 11:53
Insulin Aspart Low Resistance 300 Units/3 Ml Pen.Injctr SC 10/05/24 11:59 Not Given
Q6 CHARMAINE
Protocol
Mirabegron 50 mg 09/07/24 08:00 09/08/24 08:32
Mirabegron Extended Release 25 Mg Tab (Non Form) PO 10/05/24 07:59 50 mg
DAILY CHARMAINE Administration
Morphine Sulfate 2 mg 09/07/24 14:02 09/08/24 12:58
Morphine 2 Mg/Ml Syringe IV 09/21/24 14:01 2 mg
Q4HPRN PRN Administration
moderate Pain
Nitroglycerin 0.4 mg 09/07/24 14:30
Nitroglycerin 0.4 Mg Sl Tablet SL 10/05/24 14:29
[id number] PRN
chest pain
Pantoprazole Sodium 40 mg 09/08/24 10:00 09/08/24 11:24
Pantoprazole 40 Mg Delayed Release Tablet PO 10/06/24 09:59 40 mg
DAILY CHARMAINE Administration
Polyethylene Glycol 17 grams 09/07/24 08:00 09/08/24 08:32
Polyethylene Glycol Powder 17 Grams Packet TUBE 10/05/24 07:59 17 grams
DAILY CHARMAINE Administration
Prasugrel 10 mg 09/09/24 08:00
Prasugrel (Effient) 10 Mg Tablet PO 10/07/24 07:59
DAILY CHARMAINE
Sacubitril/Valsartan 1 tab 09/07/24 20:00 09/08/24 08:38
Sacubitril 24 Mg/Valsartan 26 Mg (Entresto) Tab PO 10/05/24 19:59 1 tab
BID CHARMAINE Administration
Sodium Chloride 0 flush 09/06/24 15:00
Sodium Chloride 0.9% (Flush) Syringe IV 10/04/24 14:59
PER PROTOCOL CHARMAINE
Sterile Water 10 ml 09/07/24 22:00 09/08/24 13:57
Sterile Water For Injection 10 Ml Vial IV 10/05/24 21:59 10 ml
Q8H CHARMAINE Administration
Venlafaxine HCl 150 mg 09/08/24 08:00 09/08/24 08:33
Venlafaxine 150 Mg Extended Release Capsule PO 10/06/24 07:59 150 mg
DAILY CHARMAINE Administration
Review of Systems
-
Patient resting comfortably without additional complaints. He has some discomfort in the area of the sternum where chest compressions were performed.
Physical Exam
-
Physical Exam
General: Well Developed, Well Nourished comfortable and extubated
HEENT: Normocephalic, Moist Mucous Membranes
Respiratory: Clear
Cardiac: S1/S2 and Regular Rhythm; Negative Murmur or Rub
GI: Soft, Non Tender, Non Distended, Normal Bowel Sounds and Other (Obese)
Musculoskeletal: No Clubbing, No Cyanosis and No Edema
Skin: Warm and Dry; Negative Rash No atypical bruising or bleeding
Neuro: Awake, Alert, Nonfocal/Grossly Intact and Other (Following simple commands lightly sedated on vent)
Labs
Lab Results
WBC 14.6 10^3/uL (4.8-10.8) H 09/08/24 04:17
RBC 3.96 10^6/uL (4.70-6.10) L 09/08/24 04:17
Hgb 11.3 g/dL (13.0-18.0) L 09/08/24 04:17
Hct 33.8 % (39.0-52.0) L 09/08/24 04:17
MCV 85.4 fL (80.0-94.0) 09/08/24 04:17
MCH 28.5 pg (27.0-31.0) 09/08/24 04:17
MCHC 33.4 g/dL (33.0-37.0) 09/08/24 04:17
RDW 14.7 % (11.5-14.5) H 09/08/24 04:17
Plt Count 150 10^3/uL (130-400) 09/08/24 04:17
MPV 9.6 fL (7.4-10.4) 09/08/24 04:17
Abs Immat Gran (auto) 0.1 10^3/uL (0-0.05) H 09/07/24 22:22
Absolute Neuts (auto) 14.6 10^3/uL (1.4-6.5) H 09/07/24 22:22
Absolute Lymphs (auto) 1.1 10^3/uL (1.2-3.4) L 09/07/24 22:22
Absolute Monos (auto) 2.0 10^3/uL (0.1-0.6) H 09/07/24 22:22
Absolute Eos (auto) 0.0 10^3/uL (0-0.7) 09/07/24 22:22
Absolute Basos (auto) 0.0 10^3/uL (0-0.2) 09/07/24 22:22
Immature Gran % 0.6 % (0-0.5) H 09/07/24 22:22
Neutrophils % 82.2 % (42.2-75.2) H 09/07/24 22:22
Lymphocytes % 5.9 % (20.5-51.1) L 09/07/24 22:22
Monocytes % 11.1 % (1.7-9.3) H 09/07/24 22:
Eosinophils % 0.0 % (0-6) 09/07/24 22:
Basophils % 0.2 % (0-2) 09/07/24 22:
Creatinine 1.5 mg/dL (0.7-1.3) H 09/08/24 13:03
Vital Signs
Vital Signs
Temp Pulse Resp BP Pulse Ox
100.4 F H 101 22 110/67 92
09/08/24 14:00 09/08/24 14:00 09/08/24 14:00 09/08/24 14:00 09/08/24 14:00
[2024-09-08 15:54] LABS: Mixed Venous O2 Saturation 71.1 %
--- NOTE | 2024-09-08 15:56 | W.PN.HOSP.TC ---
Today's Communication/Plan
-
See plan
Assessment / Plan
Assessment / Plan
Physical Exam
General: Not in acute distress and Intubated
HEENT: Normocephalic
Respiratory: Equal air entry bilaterally
Cardiac: S1/S2 and Regular Rhythm
GI: Soft, Non Tender, Non Distended, Normal Bowel Sounds and Other (Obese)
Musculoskeletal: No Cyanosis and No Edema
Skin: Warm and Dry
Neuro: Awake, Alert, Nonfocal/Grossly Intact and Other (Following simple commands)
Assessment/Plan
49yo M with HTN, GERD, Renal Ca, Right Side - Resection x 2, Torn Biceps, Torn Deltoid; No known DM history presented to the ER with Chest Pain. Dr. Castorena spoke with patient's ([phone]) for more information. Outside moving concrete.
+SOB. Dropped to Knees. 'Cant feel my arms.' No immediate chest pain; did have back 'soreness'. On 09/05/24, he was in [place] throwing the football. Had slight discomfort but did not seek further attention. Upon arrival to Triage. Patient had
trouble sitting back. Had Chest Pain radiating down both arms. ROS unattainable.
Hospital Course:
'Shortly after arrival he suffered a cardiac arrest. Patient brought back to resuscitation room. Patient was quickly placed on the monitor and found to be in ventricular fibrillation. He was shocked into a wide-complex idioventricular rhythm and
there was a pulse with this patient given 300 mg of amiodarone and the patient converted to sinus tachycardia. An additional EKG was obtained which shows an acute anterior wall CA. There is ST elevation in leads I, aVL, V1, V2, V3 with reciprocal
changes. A STEMI alert was called. Patient was intubated by Dr. Santiago on the second attempt. Patient was ventilated with a bag valve mask and an oral airway between intubations. Patient had a second V-fib arrest. He was shocked and the
resultant rhythm was asystole. Patient received CPR for about 3 rounds of epinephrine. Ultimately had return of spontaneous circulation. Dr. Box was quickly at the bedside after the STEMI was called. He requested 100 mg of lidocaine. After
return of spontaneous circulation the patient was taken to the Sales Training Coordinator. I escorted the patient to the Sales Training Coordinator. During the transport he had 2 episodes of ventricular tachycardia for which he received synchronous cardioversion to sinus rhythm with
200 J. Patient transferred to the Sales Training Coordinator table'
Anterior wall STEMI complicated by Cardiac arrest due to Ventricular Fibrillation/Ventricular Tachycardia
- Pt presented with dyspnea and near syncope after lifting heavy concrete. Followed by back soreness and chest pain radiating to b/l arms and syncope
- EKG: NSR @ 69bpm, STEMI V2-V6, I-AVL, Reciprocal Depression II-AVF, QTC 422ms.
- S/P VF/VT arrest followed by PEA arrest. Emergent Cath with Mid LAD lesion s/p MINDI. Pt remains on Impella, intubated/sedated
- HS Trop 0.012 -> 16.7. Trend to peak
- Heparin Drip as per cardio
- Wean lidocaine and Amio gtt as per ICU/Cardio recs
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 Ticagrelor failure), s/p aspiration thrombectomy and PCI of proximal LAD and PCI of previously stented segment
- Was on Integrilin and cangrelor infusions --> now cangrelor off and received Prasugrel
- Goal is to be on aspirin/prasugrel dual therapy.
- Hematology consult for atypical thrombosis evaluation
Cardiogenic Shock with acute ischemic cardiomyopathy, HfrEF, LVEF 20-25%
- Had Impella placed
- Not needing pressors
Ventilator Dependence
- Vent management per Critical Care team
- Sedated on prop/fent
Fever -- onset on 09/07/24
- Post-STEMI and ACLS/CPR fever?
- Continue broad spectrum antibiotics with Vancomycin and Cefepime
- No pneumonia on CXR
- Follow blood cultures
- Follow urine cultures
Acute Kidney Injury
- Suspected from STEMI and cardiac arrest
- Cr improving
Transaminitis
- Suspected from hypotension from STEMI and cardiac arrest
- Continue to monitor AST and ALT
Hyperglycemia
- BG 223 at peak since admission
- No prior hx DM. Per patient's nurse, although Insulin Drip was planned, he never got it or needed
- Diabetes SUPERVISOR PAINT assistance appreciated (they were consulted on admission)
GERD - Hx noted. Continue PPI
HTN
OAB - hx noted. Continue myrbetriq
History of Renal Cancer, Right Side - Resection x 2
Obstructive Sleep Apnea
- Nightly CPAP
- No prior history of smoking however patient chews tobacco
- Outpatient follow-up with sleep clinic
Depression/Insomnia - History noted. resume venlafaxine and ambien when ok from cardiac standpoint (monitor QTC)
DVT ppx: Heparin gtt
Code Status: Full Code
STEMI needing monitoring in the CVICU is a high risk encounter.
Anticipated Discharge: > 48 hours
Subjective/Interval History
-
Date of Service: September 08, 2024
Patient was seen and examined. He has been having fevers and pain from chest compressions, but no other new symptoms today.
Objective Data
-
Labs:
Laboratory Results
09/08/24 09/08/24
04:17 13:03
WBC 14.6 H
Hgb 11.3 L
Hct 33.8 L
Plt Count 150
PT 20.1 H
INR 1.65
Sodium 133 L 132 L
Potassium 4.3 4.2
Chloride 104 104
Carbon Dioxide 26 24
BUN 20 18
Creatinine 1.6 H 1.5 H
Glucose 140 H 123 H
Calcium 7.8 L 7.7 L
Total Bilirubin 1.6 H 1.7 H
AST 1096 H* 788 H*
ALT 207 H 178 H
Alkaline Phosphatase 42 42
Vital Signs:
Vital Signs
Temp Pulse Resp BP Pulse Ox
100.4 F H 105 25 114/71 93
09/08/24 15:00 09/08/24 15:00 09/08/24 15:00 09/08/24 15:00 09/08/24 15:00
I&O
09/07/24 09/08/24 09/09/24
06:59 06:59 06:59
Intake Total 2890.8 / 2986.0 1875.1 / 1875.1 1144.9 / 1144.9
Output Total 1615 / 1715 1545 / 1545 980 / 980
Balance 1275.8 / 1271.0 330.1 / 330.1 164.9 / 164.9
--- NOTE | 2024-09-08 16:35 | PTCARENOTE ---
Dr. Barrera to bedside, updated. Patient resting comfortably. MVO2 obtained, results conveyed to physician. Orders given to deline patient.
--- NOTE | 2024-09-08 16:42 | PN.CDI ---
CDI
- -
CDI:
Physician Documentation Request
Admit Date: 09/06/24 12:53
Dear Doctor Dao,
Please review the following and provide your response in the progress notes.
Clinical Indicators:
Pt admitted with Anterior wall STEMI complicated by Cardiac arrest.
09/08 Progress Note: ' Cardiogenic shock with acute ischemic cardiomyopathy, HfrEF, LVEF 20-25%... Mild pulmonary edema noted on chest x-ray'
Clarify which of the following accurately represents the acuity of the HRrEF. Possible options might include:
Acute
Acute on Chronic
Chronic
Other
Use of terms such as suspected, likely, concern for, or probable (associated with a specific diagnosis that is being evaluated, monitored, or treated as if it exists) are acceptable and can be coded in the inpatient setting, when documented at the
time of discharge.
Thank you,
Coral Dixon RN, BSN
CDI Specialist
[facility]
Please use your independent medical judgment in providing your response.
--- NOTE | 2024-09-08 16:54 | PN.CDI ---
CDI
- -
CDI:
Physician Documentation Request
Admit Date: 09/06/24 12:53
Dear Doctor Dao,
Please review the following and provide your response in the progress notes.
Clinical Indicators:
Pt admitted with Anterior wall STEMI complicated by Cardiac arrest.
09/08 Progress Note:' Acute respiratory failure, patient was intubated in the setting of cardiac arrest/CPR'
Please clarify the type and of respiratory failure:
Type
Respiratory failure with hypoxia
Respiratory failure with hypercapnia
Respiratory failure with hypoxia and hypercapnia
Other, please specify
Use of terms such as suspected, likely, concern for, or probable (associated with a specific diagnosis that is being evaluated, monitored, or treated as if it exists) are acceptable and can be coded in the inpatient setting, when documented at the
time of discharge.
Thank you,
Coral Dixon RN, BSN
CDI Specialist
[facility]
Please use your independent medical judgment in providing your response.
[2024-09-08] MEDS: LIPITOR 80 MG PO (17:17)
[2024-09-08 17:20] LABS: Glucose - Point of Care 132 mg/dl (70-99)
--- NOTE | 2024-09-08 18:18 | W.PN.CD ---
Today's Communication / Plan
-
doing well all things considered - all drips now off
transitioned to asa/prasugrel
titrating GDMT
swan out
plan for IVU tomorrow if stable
Impression / Plan
-
Impression/Plan: 49-year-old man with past medical history significant for hypertension, GERD, and renal cancer status postresection admitted anterior STEMI complicated by cardiac arrest/shock requiring Impella and PCI 09/06, s/p Impella removal
09/07. Course complicated by hyperacute in-stent thrombosis 09/07 treated with repeat PCI.
#Anterior STEMI s/p Impella-assisted PCI to LAD 09/06 complicated by hyperacute in-stent thrombosis s/p repeat PCI
-s/p PCI to LAD 09/06 ([employer] [place] 3.5 x 22 MINDI, post dilated to 4.0 mm throughout, 4.5 mm in the proximal margin)
-complicated by hyper-acute IST 09/07 treated with overlapping repeat stenting
-hematology consult given unexplained IST (no missed P2Y12 doses, no clear evidence of technical issues with stent on IVUS)
-TTE with significant LAD RWMA
-DAPT with aspirin/ticagrelor initially, now transitioned to ASA/Prasugrel after IST given presumed ticagrelor failure
-high dose, high potency statin, check Lp(a) and consider further lipid lower agents
-cont. titration of GDMT: coreg 6.25, low Entresto, dapa, start hadley tomorrow
-may require diuresis, repeat CXR in AM to evaluate pulmonary edema
#IST
-unclear etiology: no missed P2Y12, no technical issues with initial stent
-treated with repeat stenting and transition to Prasugrel/asa (as well as 24 hour of Integrilin)
-if occurs again, will need to consider CABG
-heme consulted to work up possible underlying clotting disorder
-fortunately no LV thombus on TTE with contrast
# Fever, resolved
-concern for possible sepsis
-given recent intubation, farmer, and critical illness, will plan to treat with empiric antibiotics for 48 hours pending cultures
#Cardiogenic shock, resolved
-s/p Impella removal
-Kershaw juanjose catheter removed today with final MVO2 71%, PAD ~20
#Ventricular tachycardia/ACLS, resolved
-amio/lido drips weaned off
#Dispo
-CVICU status, can go to IVU tomorrow if stable
-Full code
Critical Care Time = 45 minutes
DATA:
TTE 09/08/2024
CONCLUSIONS
Limited follow-up study with echo contrast.
Moderate to severely reduced left ventricular function with estimated ejection
fraction of 30 to 35%.
Anterior, anteroseptal, septal ,apical and distal inferior hypokinesis.
Compared to the previous report findings are similar. Previous study estimated
ejection fraction 25 to 30%
Cardiac Catheterization/PCI, 09/06/2024:
CONCLUSIONS
1. Coronary artery disease as described with culprit 100% occlusion of the mid LAD
2. Successful Impella placement for cardiogenic shock and support of subsequent PCI
3. Successful IVUS guided PCI to the mid LAD with placement of a 3.5 x 22 mm [place] frontier drug-eluting stent postdilated to 4 mm distally and 4.5 mm proximally
4. Right heart cath (on Impella support) demonstrating elevated biventricular filling pressures, moderate postcapillary pulmonary hypertension, and normal cardiac output.
Transthoracic Echocardiogram, 09/06/2024:
CONCLUSIONS
Severely reduced left ventricular systolic function. Left ventricular ejection
fraction is 20-25%.
Hypokinesis of the mid to apical anterior segments, mid to apical septal
segments, apical inferior and apical lateral segments, and apex.
Impella visualized crossing aortic valve into LV.
No significant valve disease.
No prior study available for comparison.
Physical Exam
Vital Signs/Labs
Vital Signs
Temp Pulse Resp BP Pulse Ox
38.1 C H 102 25 101/67 91
09/08/24 16:00 09/08/24 18:00 09/08/24 18:00 09/08/24 18:00 09/08/24 18:00
09/07/24 09/08/24 09/09/24
06:59 06:59 06:59
Actual Weight 105.2 kg 105.8 kg
09/08/24 04:17
09/08/24 13:03
PT 20.1 Sec (11.4-14.6) H 09/08/24 04:17
INR 1.65 09/08/24 04:17
APTT 40.5 Sec (23.4-35.0) H 09/07/24 22:22
Magnesium 1.6 mg/dl (1.6-2.3) 09/08/24 04:17
Triglycerides 103 mg/dl (10-149) 09/07/24 03:16
LDL Cholesterol, Calc 114 mg/dl 09/07/24 03:16
VLDL Cholesterol, Calc 20 mg/dl (0-30) 09/07/24 03:16
HDL Cholesterol 30 mg/dl 09/07/24 03:16
LAB Results
09/06/24 09/06/24 09/07/24
11:24 18:06 00:09
Troponin I < 0.012 16.700 H* D 43.100 H* D
09/07/24 09/07/24 09/07/24
06:10 11:54 17:56
Troponin I 72.600 H* D 124.000 H* D > 400.000 H* D
09/07/24 09/08/24 09/08/24
22:22 04:17 10:08
Troponin I > 400.000 H* 249.000 H* D 156.000 H* D
Physical Exam
Constitutional: No acute distress
Cardiovascular: Rhythm & rate is regular
Respiratory: Respiratory effort normal
Neuro/Psych: AO x 3
Other: Cath Site (cdi)
Data Reviewed
-
Date of Service: September 08, 2024
Medical Decision Making: Reviewed Test Results
EKG: Tracing Personally Visualized and interpreted
Echo: Tracing Personally Visualized and interpreted
X-Ray/CT/US/MRI/NUC/PET: Image Personally Visualized and interpreted
Medical Tests (PFT, Pathology etc): Image Personally Visualized and interpreted
Labs: Labs Reviewed by me
Critical Care Time (in minutes): 45
[2024-09-08] MEDS: LASIX 20 MG IV (19:02)
--- NOTE | 2024-09-08 20:00 | PTCARENOTE ---
Assumed care of the patient at 1900. Patient in bed, AOx4, family at bedside. Heart tones audible but distant, SR-ST on CM, trace generalized edema, palpable pulses throughout. Lungs clear on 3LNC, breathing shallow, IS encouraged, infrequent
nonproductive cough. Abdomen rounded, firm, nontender; appetite poor, patient tolerating PO without nausea but not much intake. Voiding without difficulty in the urinal. Patient used urinal x2 and emptied into the toilet after patient received
Lasix, education provided about output measurement, urine at this time is clear, pink-tinged, however patient's reported prior output to be concentrated and dark. B/L groin sites CDI, stable. PIV x2, RIJ cordis with KVO. Given morphine for
sternal pain and lidocaine patch added. Patient resting in bed at this time, updated on plan of care with family. Assessment of needs ongoing, see nursing worklist for additional intervention details.
[2024-09-08] MEDS: LIDOCAINE 4% PATCH 1 PATCH TOPICAL (20:14)
[2024-09-08] MEDS: COREG 6.25 MG PO (21:07)
[2024-09-08 22:20] LABS: Glucose - Point of Care 136 mg/dl (70-99)
[2024-09-09] VITALS (20 sets, daily range): BP systolic 88–111; BP diastolic 54–74; BMI 36.0
--- NOTE | 2024-09-09 | PTCARENOTE ---
Assessment unchanged, VSS, afebrile, pain controlled with PRNs. Patient sleeping between care.
--- NOTE | 2024-09-09 | PTCARENOTE ---
Patient sleeping between care. Morphine for pain. NC increased from 3-->4 for desatting 88-89% on 3 while sleeping. Voiding spontaneously without difficulty. returned to bedside from home. Assessment of needs ongoing.
[2024-09-09] MEDS: MAXIPIME 1000 MG IV ×2 (02:21→09:02)
[2024-09-09] MEDS: STERILE WATER FOR INJECTION 10 ML IV ×2 (02:21→09:02)
[2024-09-09 05:10] LABS: Fibrinogen 722 MG/DL (199-459); INR 1.59; PT 19.5 Sec (11.4-14.6)
[2024-09-09 05:20] LABS: D-Dimer 4.96 ug/mlFEU (0.00-0.50)
[2024-09-09 07:04] LABS: ALT (SGPT) 133 U/L (0-50); AST (SGOT) 401 U/L (17-59); Albumin 2.8 g/dl (3.5-5.0); Alkaline Phosphatase 46 U/L (38-126); Blood Urea Nitrogen 20 mg/dl (9-20); Calcium 7.9 mg/dl (8.4-10.2); Carbon Dioxide 28 mmol/L (22-30); Chloride 105 mmol/L (98-107); Estimated Creatinine Clearance 70 ml/min; Glucose 113 mg/dl (70-99); Magnesium 1.7 mg/dl (1.6-2.3); Sodium 135 mmol/L (135-145); Total Bilirubin 1.3 mg/dl (0.2-1.3); Total Protein 5.5 g/dl (6.3-8.2); Triglycerides 122 mg/dl (10-149); eGFR 56.72
--- NOTE | 2024-09-09 08:00 | PTCARENOTE ---
resumed care of patient from previous RN. Walking rounds completed. Patient in bed, AOx4, at bedside. SR-ST HR 90s. trace generalized edema, + pulses. nonproductive cough. 98%3L nc. weaned to 1L. will get OOB and weigh and in chair. appetite
poor. using urinal. B/L groin sites CDI. PIV x3, RIJ cordis w/ KVO. will continue to monitor.
[2024-09-09] MEDS: EFFIENT 10 MG PO (08:47)
[2024-09-09] MEDS: COREG 6.25 MG PO ×2 (08:58→21:17)
[2024-09-09] MEDS: MYRBETRIQ EXTENDED RELEASE 50 MG PO (08:59)
[2024-09-09] MEDS: MIRALAX 17 GRAMS TUBE (08:59)
[2024-09-09] MEDS: FARXIGA 10 MG PO (09:00)
[2024-09-09] MEDS: ENTRESTO 24 MG/26 MG 1 TAB PO ×2 (09:00→21:16)
[2024-09-09] MEDS: LOW STRENGTH ASPIRIN 81 MG TUBE (09:00)
[2024-09-09] MEDS: ALDACTONE 25 MG PO (09:00)
[2024-09-09] MEDS: EFFEXOR XR 150 MG PO (09:00)
[2024-09-09] MEDS: PROTONIX 40 MG PO (09:00)
--- NOTE | 2024-09-09 10:13 | W.PN.CD ---
Today's Communication / Plan
-
transfer to IVU
given IST will monitor two more days and discharge 09/11 with outpatient cardiology follow up with me
Impression / Plan
-
Impression/Plan: 49-year-old man with past medical history significant for hypertension, GERD, and renal cancer status postresection admitted anterior STEMI complicated by cardiac arrest/shock requiring Impella and PCI 09/06, s/p Impella removal
09/07. Course complicated by hyperacute in-stent thrombosis 09/07 treated with repeat PCI.
#Anterior STEMI s/p Impella-assisted PCI to LAD 09/06 complicated by hyperacute in-stent thrombosis s/p repeat PCI
-s/p PCI to LAD 09/06 (Medtronic Deven 3.5 x 22 MINDI, post dilated to 4.0 mm throughout, 4.5 mm in the proximal margin)
-complicated by hyper-acute IST 09/07 treated with overlapping repeat stenting
-hematology consult given unexplained IST (no missed P2Y12 doses, no clear evidence of technical issues with stent on IVUS)
-TTE with significant LAD RWMA
-DAPT with aspirin/ticagrelor initially, now transitioned to ASA/Prasugrel after IST given presumed ticagrelor failure
-high dose, high potency statin, check Lp(a) and consider further lipid lower agents
-cont. titration of GDMT: coreg 6.25, low Entresto, dapa, hadley started today
-examines euvolemic
#IST
-unclear etiology: no missed P2Y12, no technical issues with initial stent
-treated with repeat stenting and transition to Prasugrel/asa (as well as 24 hour of Integrilin)
-if occurs again, will need to consider CABG
-heme consulted to work up possible underlying clotting disorder
-fortunately no LV thombus on TTE with contrast
# Fever, resolved
-concern for possible sepsis
-given recent intubation, farmer, and critical illness, will plan to treat with empiric antibiotics for 48 hours pending cultures
#Cardiogenic shock, resolved
-s/p Impella removal
-[place] juanjose catheter removed today with final MVO2 71%, PAD ~20
#Ventricular tachycardia/ACLS, resolved
-amio/lido drips weaned off
#Dispo
-CVICU status, can go to IVU tomorrow if stable
-Full code
DATA:
TTE 09/08/2024
CONCLUSIONS
Limited follow-up study with echo contrast.
Moderate to severely reduced left ventricular function with estimated ejection
fraction of 30 to 35%.
Anterior, anteroseptal, septal ,apical and distal inferior hypokinesis.
Compared to the previous report findings are similar. Previous study estimated
ejection fraction 25 to 30%
Cardiac Catheterization/PCI, 09/06/2024:
CONCLUSIONS
1. Coronary artery disease as described with culprit 100% occlusion of the mid LAD
2. Successful Impella placement for cardiogenic shock and support of subsequent PCI
3. Successful IVUS guided PCI to the mid LAD with placement of a 3.5 x 22 mm Rob[place] frontier drug-eluting stent postdilated to 4 mm distally and 4.5 mm proximally
4. Right heart cath (on Impella support) demonstrating elevated biventricular filling pressures, moderate postcapillary pulmonary hypertension, and normal cardiac output.
Transthoracic Echocardiogram, 09/06/2024:
CONCLUSIONS
Severely reduced left ventricular systolic function. Left ventricular ejection
fraction is 20-25%.
Hypokinesis of the mid to apical anterior segments, mid to apical septal
segments, apical inferior and apical lateral segments, and apex.
Impella visualized crossing aortic valve into LV.
No significant valve disease.
No prior study available for comparison.
Physical Exam
Vital Signs/Labs
Vital Signs
Temp Pulse Resp BP Pulse Ox
36.8 C 89 17 102/67 94
09/09/24 08:00 09/09/24 09:00 09/09/24 09:00 09/09/24 09:00 09/09/24 09:00
09/08/24 09/09/24 09/10/24
06:59 06:59 06:59
Actual Weight 105.8 kg 107.4 kg
09/08/24 04:17
09/09/24 06:39
PT 19.5 Sec (11.4-14.6) H 09/09/24 04:34
INR 1.59 09/09/24 04:34
APTT 40.5 Sec (23.4-35.0) H 09/07/24 22:22
Magnesium 1.7 mg/dl (1.6-2.3) 09/09/24 06:39
Triglycerides 122 mg/dl (10-149) 09/09/24 06:39
LDL Cholesterol, Calc 114 mg/dl 09/07/24 03:16
VLDL Cholesterol, Calc 20 mg/dl (0-30) 09/07/24 03:16
HDL Cholesterol 30 mg/dl 09/07/24 03:16
LAB Results
09/06/24 09/06/24 09/07/24
11:24 18:06 00:09
Troponin I < 0.012 16.700 H* D 43.100 H* D
09/07/24 09/07/24 09/07/24
06:10 11:54 17:56
Troponin I 72.600 H* D 124.000 H* D > 400.000 H* D
09/07/24 09/08/24 09/08/24
22:22 04:17 10:08
Troponin I > 400.000 H* 249.000 H* D 156.000 H* D
Physical Exam
Constitutional: No acute distress
Cardiovascular: Rhythm & rate is regular
Respiratory: Respiratory effort normal
Neuro/Psych: AO x 3
Data Reviewed
-
Date of Service: September 09, 2024
Medical Decision Making: Reviewed Test Results
Labs: Labs Reviewed by me
--- NOTE | 2024-09-09 10:21 | PN.DE.MGMTRT ---
Insulin Management
- -
09/09/2024: Diabetes Management Follow up
Patient admitted 09/06 s/p c/o chest pain. Within minutes of arrival to ED was unresponsive - cardiac arrest. PMH HTN, GERD, renal ca - resectioned. No diabetes mentioned or diabetes medications. A1C 5.6%, cr 2.1, eGFR 37.88.
Patient is s/p cardiac cath with stent LAD, with Impella.
Patient extubated 09/07, is awake alert and orient. at bedside, very supportive. States patient has no history of diabetes himself or in his family. Insulin infusion never started, discontinued. Glucose stable and in range, 132 to 136,
required no corrective insulin. FBG 113 V this AM
Will cont to follow. Discussed with nurse.
Diabetes History
- -
Pre-Admission Diabetes Regimen
09/08/24 09/09/24 09/09/24
13:03 04:34 06:39
Creatinine 1.5 H Cancelled 1.5 H
Lab Results
Hemoglobin A1c Cancelled 09/06/24 18:06
Insulin Pump Settings
IP Diabetes Regimen
09/08/24 09/08/24 09/08/24
11:26 13:03 17:19
Glucose 123 H
POC Glucose 136 H 132 H
09/08/24 09/09/24 09/09/24
22:18 04:34 06:39
Glucose Cancelled 113 H
POC Glucose 136 H
Meal type: Breakfast
Amount consumed: 30%
Patient Education
--- NOTE | 2024-09-09 10:59 | W.PN.HOSP.TC ---
Today's Communication/Plan
-
Transfer to IVU
See plan
Assessment / Plan
Assessment / Plan
Physical Exam
General: Not in acute distress and Intubated
HEENT: Normocephalic
Respiratory: Equal air entry bilaterally
Cardiac: S1/S2 and Regular Rhythm
GI: Soft, Non Tender, Non Distended, Normal Bowel Sounds and Other (Obese)
Musculoskeletal: No Cyanosis and No Edema
Skin: Warm and Dry
Neuro: Awake, Alert, Nonfocal/Grossly Intact and Other (Following simple commands)
Assessment/Plan
49yo M with HTN, GERD, Renal Ca, Right Side - Resection x 2, Torn Biceps, Torn Deltoid; No known DM history presented to the ER with Chest Pain. Dr. Castorena spoke with patient's ([phone]) for more information. Outside moving concrete.
+SOB. Dropped to Knees. 'Cant feel my arms.' No immediate chest pain; did have back 'soreness'. On 09/05/24, he was in [place] throwing the football. Had slight discomfort but did not seek further attention. Upon arrival to Triage. Patient had
trouble sitting back. Had Chest Pain radiating down both arms. ROS unattainable.
Hospital Course:
'Shortly after arrival he suffered a cardiac arrest. Patient brought back to resuscitation room. Patient was quickly placed on the monitor and found to be in ventricular fibrillation. He was shocked into a wide-complex idioventricular rhythm and
there was a pulse with this patient given 300 mg of amiodarone and the patient converted to sinus tachycardia. An additional EKG was obtained which shows an acute anterior wall KS. There is ST elevation in leads I, aVL, V1, V2, V3 with reciprocal
changes. A STEMI alert was called. Patient was intubated by Dr. Santiago on the second attempt. Patient was ventilated with a bag valve mask and an oral airway between intubations. Patient had a second V-fib arrest. He was shocked and the
resultant rhythm was asystole. Patient received CPR for about 3 rounds of epinephrine. Ultimately had return of spontaneous circulation. Dr. Box was quickly at the bedside after the STEMI was called. He requested 100 mg of lidocaine. After
return of spontaneous circulation the patient was taken to the Car Body Designer. I escorted the patient to the Car Body Designer. During the transport he had 2 episodes of ventricular tachycardia for which he received synchronous cardioversion to sinus rhythm with
200 J. Patient transferred to the Car Body Designer table'
Anterior wall STEMI complicated by Cardiac arrest due to Ventricular Fibrillation/Ventricular Tachycardia
- Pt presented with dyspnea and near syncope after lifting heavy concrete. Followed by back soreness and chest pain radiating to b/l arms and syncope
- EKG: NSR @ 69bpm, STEMI V2-V6, I-AVL, Reciprocal Depression II-AVF, QTC 422ms.
- S/P VF/VT arrest followed by PEA arrest. Emergent Cath with Mid LAD lesion s/p MINDI. Pt's Impella was removed, previously was extubated
- HS Trop 0.012 -> 16.7. Trend to peak
- Heparin Drip as per cardio
- Weaned off lidocaine and Amio gtt as per ICU/Cardio recs
- Recurrent Chest pain on 09/07/24 --> emergent medical lab director --> acute stent thrombosis in mid LAD stent (? Ticagrelor failure), s/p aspiration thrombectomy and PCI of proximal LAD and PCI of previously stented segment
- Was on Integrilin and cangrelor infusions --> now cangrelor off and received Prasugrel
- Goal is to be on aspirin/prasugrel dual therapy.
- Hematology consult for atypical thrombosis evaluation
- Once discharged, follow-up with Dr. James Barrera outpatient
In-Stent Thrombosis
-unclear etiology: no missed P2Y12, no technical issues with initial stent
-treated by cardiology with repeat stenting and transition to Prasugrel/asa (as well as 24 hour of Integrilin)
-if occurs again, will need to consider CABG
-hematology consulted
-no LV thombus on TTE with contrast
Cardiogenic Shock with acute ischemic cardiomyopathy, HfrEF, LVEF 20-25%
- Had Impella placed, then Impella was able to be taken off
- Not needing pressors
Ventilator Dependence
- Vent management per Critical Care team
- Sedated on prop/fent
Fever -- onset on 09/07/24
- Post-STEMI and ACLS/CPR fever/post infarct inflammatory response
- HOLD Tylenol to avoid masking a fever
- No clear source of infection
- No pneumonia on CXR
- Follow blood cultures - negative so far
- Follow urine cultures - negative
- Stop antibiotics -- on 09/09/24, I discussed stopping antibiotics with petroleum plant operator and furnace unloader and their recommendation was that antibiotics can be stopped
Acute Kidney Injury
- Suspected from STEMI and cardiac arrest
- Cr improving
Transaminitis
- Suspected from hypotension from STEMI and cardiac arrest
- Continue to monitor AST and ALT -- improving
Hyperglycemia
- BG 223 at peak since admission
- No prior hx DM. Per patient's nurse, although Insulin Drip was planned, he never got it or needed
- Diabetes CULINARY INSTRUCTOR assistance appreciated (they were consulted on admission)
GERD - Hx noted. Continue PPI
HTN
OAB - hx noted. Continue myrbetriq
History of Renal Cancer, Right Side - Resection x 2
Obstructive Sleep Apnea
- Nightly CPAP
- No prior history of smoking however patient chews tobacco
- Outpatient follow-up with sleep clinic/will need sleep study with [facility] office
Depression/Insomnia - History noted. resume venlafaxine and ambien when ok from cardiac standpoint (monitor QTC)
DVT ppx: Will discuss with cardiology about putting him on Heparin DVT prophylaxis
Code Status: Full Code
Anticipated Discharge: 24 - 48 hours
Subjective/Interval History
-
Date of Service: September 09, 2024
Patient was seen and examined, and other than chest wall from chest compressions during ACLS, he denied any other symptoms or complaints.
Objective Data
-
Labs:
Laboratory Results
09/09/24 09/09/24
04:34 06:39
PT 19.5 H
INR 1.59
Sodium Cancelled 135
Potassium Cancelled 4.0
Chloride Cancelled 105
Carbon Dioxide Cancelled 28
BUN Cancelled 20
Creatinine Cancelled 1.5 H
Glucose Cancelled 113 H
Calcium Cancelled 7.9 L
Total Bilirubin Cancelled 1.3
AST Cancelled 401 H
ALT Cancelled 133 H
Alkaline Phosphatase Cancelled 46
Vital Signs:
Vital Signs
Temp Pulse Resp BP Pulse Ox
98.2 F 89 17 102/67 94
09/09/24 08:00 09/09/24 09:00 09/09/24 09:00 09/09/24 09:00 09/09/24 09:00
I&O
09/08/24 09/09/24 09/10/24
06:59 06:59 06:59
Intake Total 1875.1 / 1875.1 2155.9 / 2165.9
Output Total 1545 / 1545 2720 / 2720
Balance 330.1 / 330.1 -564.1 / -554.1
--- NOTE | 2024-09-09 12:28 | CM ---
Addendum entered by Kathie Hallman RN 09/09/24 13:54:
Gave patient the address where to picking machine operator helper the Prasugel, [facility] located on [address] [place] [address]. Will reinforce with his .
Original Note:
Reviewed chart. Telephone call to [facility] on to see if they have Prasugrel 10 mg in stock. [facility] states they do not have it in stock and would not be there by the weekend if ordered today. Telephone call to [facility] on [facility] to
see if they have Prasugrel in stock and they do have one bottle. Asked MACHINE ROPE MAKER to sent the script to [facility] on [facility] to be filled. Will need to review with spouse. Medical work-up in progress. The discharge plan is to return home with his
spouse when medically stable.
--- NOTE | 2024-09-09 12:30 | PTCARENOTE ---
Received pt from CVICU, monitor shows SR, VSS. C/O mild chest wall discomfort (2/2 chest compressions). Right groin cath site with dressing c/d/i, left groin cath site with old drainage noted and marked on dressing; no active bleeding, no
hematoma noted. 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 BL eyes with slight ecchymosis and reddened icterus. Oriented to room, visitors at bedside, call flores in reach.
[2024-09-09 17:13] LABS: Glucose - Point of Care 191 mg/dl (70-99)
[2024-09-09] MEDS: LIPITOR 80 MG PO (17:45)
[2024-09-09] MEDS: MORPHINE SULFATE 2 MG IV ×2 (18:37→23:25)
[2024-09-09 21:26] LABS: Glucose - Point of Care 112 mg/dl (70-99)
[2024-09-09] MEDS: HEPARIN 5000 UNITS SC (23:25)
[2024-09-10] VITALS (8 sets, daily range): BP systolic 90–121; BP diastolic 53–66; BMI 35.8
[2024-09-10 01:14] LABS: Lipoprotein a (Lp a) <6 mg/dL (<=29)
[2024-09-10] MEDS: MORPHINE SULFATE 2 MG IV ×4 (03:40→22:28)
[2024-09-10 03:54] LABS: Hemoglobin 11.2 g/dL (13.0-18.0); Mean Corp Hgb Conc. 33.9 g/dL (33.0-37.0); Mean Corpuscular Hgb 28.4 pg (27.0-31.0); Mean Corpuscular Volume 83.5 fL (80.0-94.0); Mean Platelet Volume 10.4 fL (7.4-10.4); Platelet Count 167 10^3/uL (130-400); Red Blood Cell Count 3.95 10^6/uL (4.70-6.10); Red Cell Dist. Width 14.4 % (11.5-14.5); White Blood Cell Count 10.9 10^3/uL (4.8-10.8)
[2024-09-10 04:17] LABS: ALT (SGPT) 105 U/L (0-50); AST (SGOT) 268 U/L (17-59); Albumin 2.8 g/dl (3.5-5.0); Alkaline Phosphatase 47 U/L (38-126); Blood Urea Nitrogen 17 mg/dl (9-20); Calcium 8.2 mg/dl (8.4-10.2); Carbon Dioxide 26 mmol/L (22-30); Chloride 104 mmol/L (98-107); Estimated Creatinine Clearance 71 ml/min; Glucose 106 mg/dl (70-99); Potassium 3.6 mmol/L (3.5-5.1); Sodium 133 mmol/L (135-145); Total Protein 5.4 g/dl (6.3-8.2); eGFR 56.72
--- NOTE | 2024-09-10 04:42 | PTCARENOTE ---
Assumed care on pt at 1900, pt c/o mod shoulder/neck discomfort r/t chest compressions, medicated with PRN morphine x2 this shift with some relief. 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
cough. Ambulating to bathroom with no issues, gait steady, no urinary complaints noted. Dsg to R radial CDI, no swelling or bruising noted around site. Right groin ELÍAS, area bruised, but no swelling noted. R IJ site dsg and L groin dsg with dry old
drainage w/o changes from previous shift.
Pt with low grade fever, T 100.9 axillary around 2100's, ice packs applied b/l groin with + effect, rechecked 99.1. Call flores within reach, POC ongoing.
--- NOTE | 2024-09-10 06:58 | W.PN.CD ---
Today's Communication / Plan
-
NO CP. Resp status stable
continue current meds and monitor pressures
- temp 100.9 lst night. afebrile this morning. He had been empriically on abx after fever the other day. Now off . Will need to have primary leonardo reassess
repeat CXR and urinalysis
Impression / Plan
-
Impression/Plan: 49-year-old man with past medical history significant for hypertension, GERD, and renal cancer status postresection admitted anterior STEMI complicated by cardiac arrest/shock requiring Impella and PCI 09/06, s/p Impella removal
09/07. Course complicated by hyperacute in-stent thrombosis 09/07 treated with repeat PCI.
#Anterior STEMI s/p Impella-assisted PCI to LAD 09/06 complicated by hyperacute in-stent thrombosis s/p repeat PCI
-s/p PCI to LAD 09/06 (Medtronic Deven 3.5 x 22 MINDI, post dilated to 4.0 mm throughout, 4.5 mm in the proximal margin)
-complicated by hyper-acute IST 09/07 treated with overlapping repeat stenting
-hematology consult given unexplained IST (no missed P2Y12 doses, no clear evidence of technical issues with stent on IVUS)
-TTE with significant LAD RWMA
-DAPT with aspirin/ticagrelor initially, now transitioned to ASA/Prasugrel after IST given presumed ticagrelor failure
-high dose, high potency statin, check Lp(a) and consider further lipid lower agents
-cont. titration of GDMT: coreg 6.25, low Entresto, dapa, hadley started today
-examines euvolemic
#IST
-unclear etiology: no missed P2Y12, no technical issues with initial stent
-treated with repeat stenting and transition to Prasugrel/asa (as well as 24 hour of Integrilin)
-if occurs again, will need to consider CABG
-heme consulted to work up possible underlying clotting disorder. ( see conuslt Dr Aquino)
- no LV thombus on TTE with contrast
# Fever, resolved
- temp 100.9 lst night. afebrile this morning
-previously with temp concern for possible sepsis
-post intubation, farmer, and critical illness, and treated with empiric antibiotics intiially then discontinued
- assess need for abx with primaryteam
#Cardiogenic shock, resolved
-s/p Impella removal
-[place] juanjose catheter removed today with final MVO2 71%, PAD ~20
#Ventricular tachycardia/ACLS, resolved
-amio/lido drips weaned off
DATA:
TTE 09/08/2024
CONCLUSIONS
Limited follow-up study with echo contrast.
Moderate to severely reduced left ventricular function with estimated ejection
fraction of 30 to 35%.
Anterior, anteroseptal, septal ,apical and distal inferior hypokinesis.
Compared to the previous report findings are similar. Previous study estimated
ejection fraction 25 to 30%
Cardiac Catheterization/PCI, 09/06/2024:
CONCLUSIONS
1. Coronary artery disease as described with culprit 100% occlusion of the mid LAD
2. Successful Impella placement for cardiogenic shock and support of subsequent PCI
3. Successful IVUS guided PCI to the mid LAD with placement of a 3.5 x 22 mm Deven frontier drug-eluting stent postdilated to 4 mm distally and 4.5 mm proximally
4. Right heart cath (on Impella support) demonstrating elevated biventricular filling pressures, moderate postcapillary pulmonary hypertension, and normal cardiac output.
Transthoracic Echocardiogram, 09/06/2024:
CONCLUSIONS
Severely reduced left ventricular systolic function. Left ventricular ejection
fraction is 20-25%.
Hypokinesis of the mid to apical anterior segments, mid to apical septal
segments, apical inferior and apical lateral segments, and apex.
Impella visualized crossing aortic valve into LV.
No significant valve disease.
No prior study available for comparison.
Physical Exam
Vital Signs/Labs
Vital Signs
Temp Pulse Resp BP Pulse Ox
98.4 F 92 18 102/62 96
09/10/24 03:00 09/10/24 01:00 09/10/24 03:00 09/09/24 23:21 09/10/24 03:00
09/08/24 09/09/24 09/10/24
06:59 06:59 06:59
Actual Weight 105.8 kg 107.4 kg
09/10/24 02:48
09/10/24 02:48
PT 19.5 Sec (11.4-14.6) H 09/09/24 04:34
INR 1.59 09/09/24 04:34
APTT 40.5 Sec (23.4-35.0) H 09/07/24 22:22
Magnesium 1.7 mg/dl (1.6-2.3) 09/09/24 06:39
Triglycerides 122 mg/dl (10-149) 09/09/24 06:39
LDL Cholesterol, Calc 114 mg/dl 09/07/24 03:16
VLDL Cholesterol, Calc 20 mg/dl (0-30) 09/07/24 03:16
HDL Cholesterol 30 mg/dl 09/07/24 03:16
LAB Results
09/07/24 09/07/24 09/07/24
06:10 11:54 17:56
Troponin I 72.600 H* D 124.000 H* D > 400.000 H* D
09/07/24 09/08/24 09/08/24
22:22 04:17 10:08
Troponin I > 400.000 H* 249.000 H* D 156.000 H* D
Physical Exam
Constitutional: No acute distress
Cardiovascular: Rhythm & rate is regular
Respiratory: Respiratory effort normal
GI: Soft, Non tender and Other
Neuro/Psych: Alert
Data Reviewed
-
Date of Service: September 10, 2024
Medical Decision Making: Reviewed Test Results
X-Ray/CT/US/MRI/NUC/PET: Report Reviewed by me
Medical Tests (PFT, Pathology etc): Report Reviewed by me
Labs: Labs Reviewed by me
--- NOTE | 2024-09-10 07:12 | W.PN.CD ---
Today's Communication / Plan
-
- temp 100.9 lst night. afebrile this morning
-previously with temp , -post intubation, farmer, and critical illness, and treated with empiric antibiotics intiially then discontinued
- repeat CXR and UA
- assess need for abx with primary team
-Continue to monitor as meds titrated
Impression / Plan
-
Impression/Plan: 49-year-old man with past medical history significant for hypertension, GERD, and renal cancer status postresection admitted anterior STEMI complicated by cardiac arrest/shock requiring Impella and PCI 09/06, s/p Impella removal
09/07. Course complicated by hyperacute in-stent thrombosis 09/07 treated with repeat PCI.
#Anterior STEMI s/p Impella-assisted PCI to LAD 09/06 complicated by hyperacute in-stent thrombosis s/p repeat PCI
-s/p PCI to LAD 09/06 (Medtronic [place] 3.5 x 22 MINDI, post dilated to 4.0 mm throughout, 4.5 mm in the proximal margin)
-complicated by hyper-acute IST 09/07 treated with overlapping repeat stenting
-hematology consult given unexplained IST (no missed P2Y12 doses, no clear evidence of technical issues with stent on IVUS)
-TTE with significant LAD RWMA
-DAPT with aspirin/ticagrelor initially, now transitioned to ASA/Prasugrel after IST given presumed ticagrelor failure
-high dose, high potency statin, check Lp(a) and consider further lipid lower agents
-cont. titration of GDMT: coreg 6.25, low Entresto, dapa, hadley started today
#IST
-unclear etiology: no missed P2Y12, no technical issues with initial stent
-treated with repeat stenting and transition to Prasugrel/asa (as well as 24 hour of Integrilin)
-if occurs again, will need to consider CABG
-heme consulted to work up possible underlying clotting disorder. ( see conuslt Dr Aquino)
- no LV thombus on TTE with contrast
# Fever,
- temp 100.9 lst night. afebrile this morning
-previously with temp concern for possible sepsis
-post intubation, farmer, and critical illness, and treated with empiric antibiotics intiially then discontinued
- repeat CXR and UA
- assess need for abx with primaryteam
#Cardiogenic shock, resolved
-s/p Impella removal
-[place] juanjose catheter removed today with final MVO2 71%, PAD ~20
#Ventricular tachycardia/ACLS, resolved
-amio/lido drips weaned off
DATA:
TTE 09/08/2024
CONCLUSIONS
Limited follow-up study with echo contrast.
Moderate to severely reduced left ventricular function with estimated ejection
fraction of 30 to 35%.
Anterior, anteroseptal, septal ,apical and distal inferior hypokinesis.
Compared to the previous report findings are similar. Previous study estimated
ejection fraction 25 to 30%
Cardiac Catheterization/PCI, 09/06/2024:
CONCLUSIONS
1. Coronary artery disease as described with culprit 100% occlusion of the mid LAD
2. Successful Impella placement for cardiogenic shock and support of subsequent PCI
3. Successful IVUS guided PCI to the mid LAD with placement of a 3.5 x 22 mm [place] frontier drug-eluting stent postdilated to 4 mm distally and 4.5 mm proximally
4. Right heart cath (on Impella support) demonstrating elevated biventricular filling pressures, moderate postcapillary pulmonary hypertension, and normal cardiac output.
Transthoracic Echocardiogram, 09/06/2024:
CONCLUSIONS
Severely reduced left ventricular systolic function. Left ventricular ejection
fraction is 20-25%.
Hypokinesis of the mid to apical anterior segments, mid to apical septal
segments, apical inferior and apical lateral segments, and apex.
Impella visualized crossing aortic valve into LV.
No significant valve disease.
No prior study available for comparison.
Physical Exam
Vital Signs/Labs
Vital Signs
Temp Pulse Resp BP Pulse Ox
98.4 F 92 18 102/62 96
09/10/24 03:00 09/10/24 01:00 09/10/24 03:00 09/09/24 23:21 09/10/24 03:00
09/09/24 09/10/24 09/11/24
06:59 06:59 06:59
Actual Weight 107.4 kg
09/10/24 02:48
09/10/24 02:48
PT 19.5 Sec (11.4-14.6) H 09/09/24 04:34
INR 1.59 09/09/24 04:34
APTT 40.5 Sec (23.4-35.0) H 09/07/24 22:22
Magnesium 1.7 mg/dl (1.6-2.3) 09/09/24 06:39
Triglycerides 122 mg/dl (10-149) 09/09/24 06:39
LDL Cholesterol, Calc 114 mg/dl 09/07/24 03:16
VLDL Cholesterol, Calc 20 mg/dl (0-30) 09/07/24 03:16
HDL Cholesterol 30 mg/dl 09/07/24 03:16
LAB Results
09/07/24 09/07/24 09/07/24
06:10 11:54 17:56
Troponin I 72.600 H* D 124.000 H* D > 400.000 H* D
09/07/24 09/08/24 09/08/24
22:22 04:17 10:08
Troponin I > 400.000 H* 249.000 H* D 156.000 H* D
Physical Exam
Constitutional: No acute distress
Cardiovascular: Rhythm & rate is regular
Respiratory: Respiratory effort normal
GI: Soft
Neuro/Psych: Alert
Data Reviewed
-
Date of Service: September 10, 2024
Medical Decision Making: Reviewed Test Results
Echo: Report Reviewed by me
X-Ray/CT/US/MRI/NUC/PET: Report Reviewed by me
Medical Tests (PFT, Pathology etc): Report Reviewed by me
Labs: Labs Reviewed by me
[2024-09-10 08:24] LABS: Glucose - Point of Care 105 mg/dl (70-99)
[2024-09-10] MEDS: ALDACTONE 12.5 MG PO (08:31)
[2024-09-10] MEDS: COREG 6.25 MG PO ×2 (08:31→21:29)
[2024-09-10] MEDS: EFFEXOR XR 150 MG PO (08:32)
[2024-09-10] MEDS: EFFIENT 10 MG PO (08:32)
[2024-09-10] MEDS: LOW STRENGTH ASPIRIN 81 MG TUBE (08:33)
[2024-09-10] MEDS: FARXIGA 10 MG PO (08:33)
[2024-09-10] MEDS: ENTRESTO 24 MG/26 MG 1 TAB PO ×2 (08:33→21:29)
[2024-09-10] MEDS: PROTONIX 40 MG PO (08:34)
[2024-09-10] MEDS: MIRALAX 17 GRAMS TUBE (08:34)
[2024-09-10] MEDS: MYRBETRIQ EXTENDED RELEASE 50 MG PO (08:34)
[2024-09-10] MEDS: HEPARIN 5000 UNITS SC ×3 (08:35→22:28)
[2024-09-10] MEDS: FLUSH (NSS) 3 FLUSH IV (08:35)
--- NOTE | 2024-09-10 09:43 | PTCARENOTE ---
Received patient this morning sitting oob in the chair, lying on the couch in the room. Patient complaining of muscular pain of both shoulders, neck and upper back rated as a 4-5/10. Breakfast sitting in front of him, states he hasn't had much
of an appetite, that even eating makes him exhausted. Medicated with morphine IV for pain, afebrile this morning but with occasional dry cough, patient ordered a CXR for today.
--- NOTE | 2024-09-10 14:58 | PTCARENOTE ---
Patient was able to ambulate down the chiang using the rolling walker with his and sat in the patient lounge for a while. Does get very PETTY but maintains his O2 saturation on RA, using nasal O2 prn, fatigued with minimal activities. went
home for a while, the patient's brother in visiting, patient sleeping in the recliner now.
--- NOTE | 2024-09-10 16:51 | W.PN.HOSP.TC ---
Today's Communication/Plan
-
See plan
Assessment / Plan
Assessment / Plan
Physical Exam
General: Not in acute distress and Intubated
HEENT: Normocephalic
Respiratory: Equal air entry bilaterally
Cardiac: S1/S2 and Regular Rhythm
GI: Soft, Non Tender, Non Distended, Normal Bowel Sounds and Other (Obese)
Musculoskeletal: No Cyanosis and No Edema
Skin: Warm and Dry
Neuro: Awake, Alert, Nonfocal/Grossly Intact and Other (Following simple commands)
Assessment/Plan
49yo M with HTN, GERD, Renal Ca, Right Side - Resection x 2, Torn Biceps, Torn Deltoid; No known DM history presented to the ER with Chest Pain. Dr. Castorena spoke with patient's ([phone]) for more information. Outside moving concrete.
+SOB. Dropped to Knees. 'Cant feel my arms.' No immediate chest pain; did have back 'soreness'. On 09/05/24, he was in [place] throwing the football. Had slight discomfort but did not seek further attention. Upon arrival to Triage. Patient had
trouble sitting back. Had Chest Pain radiating down both arms. ROS unattainable.
Hospital Course:
'Shortly after arrival he suffered a cardiac arrest. Patient brought back to resuscitation room. Patient was quickly placed on the monitor and found to be in ventricular fibrillation. He was shocked into a wide-complex idioventricular rhythm and
there was a pulse with this patient given 300 mg of amiodarone and the patient converted to sinus tachycardia. An additional EKG was obtained which shows an acute anterior wall NV. There is ST elevation in leads I, aVL, V1, V2, V3 with reciprocal
changes. A STEMI alert was called. Patient was intubated by Dr. Santiago on the second attempt. Patient was ventilated with a bag valve mask and an oral airway between intubations. Patient had a second V-fib arrest. He was shocked and the
resultant rhythm was asystole. Patient received CPR for about 3 rounds of epinephrine. Ultimately had return of spontaneous circulation. Dr. Box was quickly at the bedside after the STEMI was called. He requested 100 mg of lidocaine. After
return of spontaneous circulation the patient was taken to the [facility]. I escorted the patient to the [facility]. During the transport he had 2 episodes of ventricular tachycardia for which he received synchronous cardioversion to sinus rhythm with
200 J. Patient transferred to the [facility] table'
Anterior wall STEMI complicated by Cardiac arrest due to Ventricular Fibrillation/Ventricular Tachycardia
- Pt presented with dyspnea and near syncope after lifting heavy concrete. Followed by back soreness and chest pain radiating to b/l arms and syncope
- EKG: NSR @ 69bpm, STEMI V2-V6, I-AVL, Reciprocal Depression II-AVF, QTC 422ms.
- S/P VF/VT arrest followed by PEA arrest. Emergent Cath with Mid LAD lesion s/p MINDI. Pt's Impella was removed, previously was extubated
- HS Trop 0.012 -> 16.7. Trend to peak
- Heparin Drip stopped as per cardio
- Weaned off lidocaine and Amio gtt as per ICU/Cardio recs
- Recurrent Chest pain on 09/07/24 --> emergent laboratory cureman --> acute stent thrombosis in mid LAD stent (? Ticagrelor failure), s/p aspiration thrombectomy and PCI of proximal LAD and PCI of previously stented segment
- Was on Integrilin and cangrelor infusions --> now cangrelor off and received Prasugrel
- Goal is to be on aspirin/prasugrel dual therapy.
- Hematology consult for atypical thrombosis evaluation
- Once discharged, follow-up with Dr. James Barrera outpatient
In-Stent Thrombosis
-unclear etiology: no missed P2Y12, no technical issues with initial stent
-treated by cardiology with repeat stenting and transition to Prasugrel/asa (as well as 24 hour of Integrilin)
-if occurs again, will need to consider CABG
-hematology consulted
-no LV thombus on TTE with contrast
Cardiogenic Shock with acute ischemic cardiomyopathy, HfrEF, LVEF 20-25%
- Had Impella placed, then Impella was able to be taken off
- Not needing pressors
Ventilator Dependence
- Vent management per Critical Care team
- Sedated on prop/fent
Fever -- onset on 09/07/24
- Post-STEMI and ACLS/CPR fever/post infarct inflammatory response
- HOLD Tylenol to avoid masking a fever
- No clear source of infection
- No pneumonia on CXR
- Follow blood cultures - negative so far
- Follow urine cultures - negative
- Stop antibiotics -- on 09/09/24, I discussed stopping antibiotics with pharmacy technician infusion and head of conservation and their recommendation was that antibiotics can be stopped
- Will repeat CXR and UA as per cardiology recommendation, although patient is not having any symptoms of pneumonia or UTI
Acute Kidney Injury
- Suspected from STEMI and cardiac arrest
- Cr overall improved
Transaminitis
- Suspected from hypotension from STEMI and cardiac arrest
- Continue to monitor AST and ALT -- improving
Hyperglycemia
- BG 223 at peak since admission
- No prior hx DM. Per patient's nurse, although Insulin Drip was planned, he never got it or needed
- Diabetes DESIGN MAKER assistance appreciated (they were consulted on admission)
GERD - Hx noted. Continue PPI
HTN
OAB - hx noted. Continue myrbetriq
History of Renal Cancer, Right Side - Resection x 2
Obstructive Sleep Apnea
- Nightly CPAP
- No prior history of smoking however patient chews tobacco
- Outpatient follow-up with sleep clinic/will need sleep study with [facility] office
Depression/Insomnia - History noted. resume venlafaxine and ambien when ok from cardiac standpoint (monitor QTC)
DVT ppx: Heparin subq
Code Status: Full Code
Anticipated Discharge: 24 - 48 hours
Subjective/Interval History
-
Date of Service: September 10, 2024
Patient was seen and examined. He denied any new symptoms or complaints.
Objective Data
-
Vital Signs:
Vital Signs
Temp Pulse Resp BP Pulse Ox
98.4 F 91 20 114/53 97
09/10/24 16:20 09/10/24 16:23 09/10/24 16:20 09/10/24 16:23 09/10/24 16:20
I&O
09/09/24 09/10/24 09/11/24
06:59 06:59 06:59
Intake Total 2155.9 / 2165.9
Output Total 2720 / 2720
Balance -564.1 / -554.1
[2024-09-10] MEDS: LIPITOR 80 MG PO (17:15)
[2024-09-10 17:21] LABS: Glucose - Point of Care 85 mg/dl (70-99)
--- NOTE | 2024-09-10 17:58 | PTCARENOTE ---
Patient ambulated down the chiang with his brother using the rolling walker, very fatigued after. Main complaint is decreased ROM of his arms, has tenseness and discomfort in his shoulders, at the base of his neck and between his scapula. Rates it a
3/10 at rest but can go up to an 8/10 when using his arms. States wiping himself in the bathroom caused severe burning in his shoulder when reaching back. TT to Dr. Najera and forwarded to Dr. Avina about alternate pain management. Patient
states this is the same pain he has been having and has not changed since he 'first came to' after being admitted. Medicated with morphine 2mg IV for now, sitting oob in the chair eating some dinner.
[2024-09-10] MEDS: TYLENOL 500 MG PO (18:15)
[2024-09-10 18:33] LABS: Urine Albumin 2+ (Neg - Trace); Urine Bilirubin Negative (Negative); Urine Character Clear (Clear); Urine Color Yellow; Urine Glucose 4+ (Negative); Urine Ketone 1+ (Negative); Urine Leukocyte Negative (Negative); Urine Nitrite Negative (Negative); Urine Occult Blood 4+ (Negative); Urine Specific Gravity 1.005 (<1.030); Urine Urobilinogen 2+ (Neg - 1+)
[2024-09-10 18:42] LABS: Urine Red Blood Cell 0-2 /HPF (0-2); Urine Squamous Cell 0-2 /LPF (Few)
[2024-09-10 18:43] LABS: Urine Bacteria Few (Negative)
[2024-09-10 21:30] LABS: Glucose - Point of Care 90 mg/dl (70-99)
--- NOTE | 2024-09-10 23:51 | PTCARENOTE ---
Pt ambulating on hallway at change of shift, steady gait. SR on the monitor with HR 80-90's, denies chest pain, some SOB with exertion, fatigued. c/o shoulder and neck pain 09/27, existing pain med regimen non effective. Hospitalist and food operations manager
made aware by previous nurse. Dr. Avina at bedside to see pt r/t pain management, no new orders noted. Morphine 2mg given at bedtime with some + effect. Call flores within reach. staying with pt overnight.
[2024-09-11] VITALS (7 sets, daily range): BP systolic 90–135; BP diastolic 60–72; BMI 35.3
[2024-09-11] MEDS: MORPHINE SULFATE 2 MG IV (03:35)
[2024-09-11 04:23] LABS: Hematocrit 34.5 % (39.0-52.0); Hemoglobin 11.6 g/dL (13.0-18.0); Mean Corp Hgb Conc. 33.6 g/dL (33.0-37.0); Mean Corpuscular Hgb 28.5 pg (27.0-31.0); Mean Corpuscular Volume 84.8 fL (80.0-94.0); Mean Platelet Volume 10.2 fL (7.4-10.4); Platelet Count 188 10^3/uL (130-400); Red Blood Cell Count 4.07 10^6/uL (4.70-6.10); Red Cell Dist. Width 14.6 % (11.5-14.5); White Blood Cell Count 8.1 10^3/uL (4.8-10.8)
[2024-09-11 04:46] LABS: ALT (SGPT) 89 U/L (0-50); AST (SGOT) 198 U/L (17-59); Albumin 2.9 g/dl (3.5-5.0); Alkaline Phosphatase 50 U/L (38-126); Blood Urea Nitrogen 17 mg/dl (9-20); Calcium 8.5 mg/dl (8.4-10.2); Carbon Dioxide 23 mmol/L (22-30); Chloride 106 mmol/L (98-107); Estimated Creatinine Clearance 81 ml/min; Glucose 103 mg/dl (70-99); Potassium 3.7 mmol/L (3.5-5.1); Sodium 135 mmol/L (135-145); Total Bilirubin 1.1 mg/dl (0.2-1.3); Total Protein 5.5 g/dl (6.3-8.2); eGFR > 60.00
--- NOTE | 2024-09-11 07:54 | W.PN.CD ---
Today's Communication / Plan
-
Hemodynamically stable. Tolerating meds.
Tmax 99. Follow-up chest x-ray was unremarkable. Blood culture and urine culture for 09/07/24 negative. Patient had a urinalysis with some abnormalities but did not go to reflex culture. Significance of abnormalities unclear. Will defer to
hospitalist for further assessment of urinalysis
Patient with bilateral shoulder discomfort. Appears musculoskeletal significant soreness when trying to raise arms is also some soreness with palpation unclear if muscular strain. Will also hold statin due to muscular symptoms. CPK ordered.
Tylenol preferred. Would like to avoid additional use of narcotic.
Continue to ambulate
If patient's condition continues to improve possible discharge on 09/13/2024
Impression / Plan
-
Impression/Plan: 49-year-old man with past medical history significant for hypertension, GERD, and renal cancer status postresection admitted anterior STEMI complicated by cardiac arrest/shock requiring Impella and PCI 09/06, s/p Impella removal
09/07. Course complicated by hyperacute in-stent thrombosis 09/07 treated with repeat PCI.
#Anterior STEMI s/p Impella-assisted PCI to LAD 09/06 complicated by hyperacute in-stent thrombosis s/p repeat PCI
-s/p PCI to LAD 09/06 (Medtronic [place] 3.5 x 22 MINDI, post dilated to 4.0 mm throughout, 4.5 mm in the proximal margin)
-complicated by hyper-acute IST 09/07 treated with overlapping repeat stenting
-hematology consult given unexplained IST (no missed P2Y12 doses, no clear evidence of technical issues with stent on IVUS)
-TTE with significant LAD RWMA
-DAPT with aspirin/ticagrelor initially, now transitioned to ASA/Prasugrel after IST given presumed ticagrelor failure
-high dose, high potency statin, check Lp(a) and consider further lipid lower agents
-cont. titration of GDMT: coreg 6.25, low Entresto, dapa, hadley started today
#IST
-unclear etiology: no missed P2Y12, no technical issues with initial stent
-treated with repeat stenting and transition to Prasugrel/asa (as well as 24 hour of Integrilin)
-if occurs again, will need to consider CABG
-heme consulted to work up possible underlying clotting disorder. ( see elmira Aquino)
- no LV thombus on TTE with contrast
# Shoulder pain
- Patient's had bilateral shoulder pain last 4 days he says it feels muscular shoulders are sore more discomfort if he tries to lift his arms above his head. Degree of discomfort has been persistent but not worsening has received additional pain
meds from nursing. Some soreness with palpation. He does not have other chest wall pain that is related to prior CPR unclear if there was an additional muscular strain related to moving patient. Patient also on high-dose statin which appears to
be new for the patient possible this could contribute.
- Will hold atorvastatin for next couple days and assess and then transition to Crestor.
# Fever,
- temp 100.9 09/09/2024. Tmax last 24 hours 99.2. Chest x-ray repeated 09/10/2024 with no infiltrate. Urinalysis with RBC 0-2, WBC 6-10 squamous 0-2 few bacteria. Also reported 4+ occult blood reflex. Previous culture 09/07/2024 negative BC
09/07/2024 negative
- Defer to primary team regarding urinalysis. Monitor temps.
#Cardiogenic shock, resolved
-s/p Impella removal
-[place] juanjose catheter removed today with final MVO2 71%, PAD ~20
#Ventricular tachycardia/ACLS, resolved
-amio/lido drips weaned off
DATA:
TTE 09/08/2024
CONCLUSIONS
Limited follow-up study with echo contrast.
Moderate to severely reduced left ventricular function with estimated ejection
fraction of 30 to 35%.
Anterior, anteroseptal, septal ,apical and distal inferior hypokinesis.
Compared to the previous report findings are similar. Previous study estimated
ejection fraction 25 to 30%
Cardiac Catheterization/PCI, 09/06/2024:
CONCLUSIONS
1. Coronary artery disease as described with culprit 100% occlusion of the mid LAD
2. Successful Impella placement for cardiogenic shock and support of subsequent PCI
3. Successful IVUS guided PCI to the mid LAD with placement of a 3.5 x 22 mm [place] frontier drug-eluting stent postdilated to 4 mm distally and 4.5 mm proximally
4. Right heart cath (on Impella support) demonstrating elevated biventricular filling pressures, moderate postcapillary pulmonary hypertension, and normal cardiac output.
Transthoracic Echocardiogram, 09/06/2024:
CONCLUSIONS
Severely reduced left ventricular systolic function. Left ventricular ejection
fraction is 20-25%.
Hypokinesis of the mid to apical anterior segments, mid to apical septal
segments, apical inferior and apical lateral segments, and apex.
Impella visualized crossing aortic valve into LV.
No significant valve disease.
No prior study available for comparison.
Physical Exam
Vital Signs/Labs
Vital Signs
Temp Pulse Resp BP Pulse Ox
99.2 F 83 20 101/60 93
09/11/24 06:46 09/11/24 05:30 09/11/24 06:46 09/11/24 03:40 09/11/24 06:46
09/10/24 09/11/24 09/12/24
06:59 06:59 06:59
Actual Weight 107.4 kg 106.9 kg
09/11/24 03:47
09/11/24 03:47
PT 19.5 Sec (11.4-14.6) H 09/09/24 04:34
INR 1.59 09/09/24 04:34
APTT 40.5 Sec (23.4-35.0) H 09/07/24 22:22
Magnesium 1.7 mg/dl (1.6-2.3) 09/09/24 06:39
Triglycerides 122 mg/dl (10-149) 09/09/24 06:39
LDL Cholesterol, Calc 114 mg/dl 09/07/24 03:16
VLDL Cholesterol, Calc 20 mg/dl (0-30) 09/07/24 03:16
HDL Cholesterol 30 mg/dl 09/07/24 03:16
LAB Results
09/08/24
10:08
Troponin I 156.000 H* D
Physical Exam
Constitutional: No acute distress
Cardiovascular: Rhythm & rate is regular
Respiratory: Wheeze Absent, Rhonchi Absent and Other (Some intermittent cough)
GI: Soft, Non tender and Normal bowel sounds
Neuro/Psych: Alert, Oriented and AO x 3
Other: Other (Bilateral shoulder soreness with movement.)
Data Reviewed
-
Date of Service: September 11, 2024
Medical Decision Making: Reviewed Test Results
Echo: Report Reviewed by me
X-Ray/CT/US/MRI/NUC/PET: Report Reviewed by me
Labs: Labs Reviewed by me
[2024-09-11 09:00] LABS: Creatine Phosphokinase 7128 U/L (55-170)
[2024-09-11 09:09] LABS: Glucose - Point of Care 93 mg/dl (70-99)
[2024-09-11] MEDS: ALDACTONE 12.5 MG PO (09:22)
[2024-09-11] MEDS: COREG 6.25 MG PO ×2 (09:22→20:16)
[2024-09-11] MEDS: EFFEXOR XR 150 MG PO (09:22)
[2024-09-11] MEDS: EFFIENT 10 MG PO (09:23)
[2024-09-11] MEDS: ENTRESTO 24 MG/26 MG 1 TAB PO ×2 (09:24→20:13)
[2024-09-11] MEDS: FARXIGA 10 MG PO (09:24)
[2024-09-11] MEDS: MIRALAX TUBE (09:25)
[2024-09-11] MEDS: MYRBETRIQ EXTENDED RELEASE 50 MG PO (09:25)
[2024-09-11] MEDS: PROTONIX 40 MG PO (09:25)
[2024-09-11] MEDS: HEPARIN 5000 UNITS SC ×3 (09:25→23:03)
[2024-09-11] MEDS: LOW STRENGTH ASPIRIN 81 MG TUBE (09:25)
[2024-09-11] MEDS: FLUSH (NSS) 2 FLUSH IV (09:26)
--- NOTE | 2024-09-11 11:47 | PTCARENOTE ---
Patient ambulating in the chiang down to the lounge several times this shift without the use of the rolling walker. Still having muscular shoulder/neck discomfort but feels it is worse when he is lying and that he then gets stiff. Dressings removed
from his right neck and left groin, some ecchymosis but no active bleeding and left open to air. In the lounge now with his parents visiting.
--- NOTE | 2024-09-11 13:52 | W.PN.UPDATE ---
Update Note
Progress Note Update
patietn with shoulder aches, muscular. CPK 7000 raising concern for rhabdo.
- atorvastatin [place] been stopped.
- no further statin
- nprholgy consulted.
- would need to be cautious about IVF with CM adn EF about 30%. If need could consdier IVF and lasix.
will await assessment by nephrology
--- NOTE | 2024-09-11 14:50 | W.PN.HOSP.TC ---
Today's Communication/Plan
-
See plan
Assessment / Plan
Assessment / Plan
Physical Exam
General: Not in acute distress and Intubated
HEENT: Normocephalic
Respiratory: Equal air entry bilaterally
Cardiac: S1/S2 and Regular Rhythm
GI: Soft, Non Tender, Non Distended, Normal Bowel Sounds and Other (Obese)
Musculoskeletal: No Cyanosis and No Edema
Skin: Warm and Dry
Neuro: Awake, Alert, Oriented x3. Nonfocal/grossly intact throughout.
Assessment/Plan
49yo M with HTN, GERD, Renal Ca, Right Side - Resection x 2, Torn Biceps, Torn Deltoid; No known DM history presented to the ER with Chest Pain. Dr. Castorena spoke with patient's ([phone]) for more information. Outside moving concrete.
+SOB. Dropped to Knees. 'Cant feel my arms.' No immediate chest pain; did have back 'soreness'. On 09/05/24, he was in [place] throwing the football. Had slight discomfort but did not seek further attention. Upon arrival to Triage. Patient had
trouble sitting back. Had Chest Pain radiating down both arms. ROS unattainable.
Hospital Course:
'Shortly after arrival he suffered a cardiac arrest. Patient brought back to resuscitation room. Patient was quickly placed on the monitor and found to be in ventricular fibrillation. He was shocked into a wide-complex idioventricular rhythm and
there was a pulse with this patient given 300 mg of amiodarone and the patient converted to sinus tachycardia. An additional EKG was obtained which shows an acute anterior wall AL. There is ST elevation in leads I, aVL, V1, V2, V3 with reciprocal
changes. A STEMI alert was called. Patient was intubated by Dr. Santiago on the second attempt. Patient was ventilated with a bag valve mask and an oral airway between intubations. Patient had a second V-fib arrest. He was shocked and the
resultant rhythm was asystole. Patient received CPR for about 3 rounds of epinephrine. Ultimately had return of spontaneous circulation. Dr. Box was quickly at the bedside after the STEMI was called. He requested 100 mg of lidocaine. After
return of spontaneous circulation the patient was taken to the Clothing [facility]. I escorted the patient to the Clothing [facility]. During the transport he had 2 episodes of ventricular tachycardia for which he received synchronous cardioversion to sinus rhythm with
200 J. Patient transferred to the Clothing [facility] table'
Anterior wall STEMI complicated by Cardiac arrest due to Ventricular Fibrillation/Ventricular Tachycardia
- Pt presented with dyspnea and near syncope after lifting heavy concrete. Followed by back soreness and chest pain radiating to b/l arms and syncope
- EKG: NSR @ 69bpm, STEMI V2-V6, I-AVL, Reciprocal Depression II-AVF, QTC 422ms.
- S/P VF/VT arrest followed by PEA arrest. Emergent Cath with Mid LAD lesion s/p MINDI. Pt's Impella was removed, previously was extubated
- Heparin Drip stopped as per cardio
- Weaned off lidocaine and Amio gtt as per ICU/Cardio recs
- Recurrent Chest pain on 09/07/24 --> emergent process laboratory specialist --> acute stent thrombosis in mid LAD stent (? Ticagrelor failure), s/p aspiration thrombectomy and PCI of proximal LAD and PCI of previously stented segment
- Was on Integrilin and cangrelor infusions --> cangrelor and Integrilin taken off
- Goal is to continue on aspirin/prasugrel dual therapy.
- Hematology consult for atypical thrombosis evaluation
- Once discharged, follow-up with Dr. James Barrera outpatient
In-Stent Thrombosis
-unclear etiology: no missed P2Y12, no technical issues with initial stent
-treated by cardiology with repeat stenting and transition to Prasugrel/asa (as well as 24 hour of Integrilin)
-if occurs again, will need to consider CABG
-hematology consulted
-no LV thombus on TTE with contrast
Cardiogenic Shock with acute ischemic cardiomyopathy, HfrEF, LVEF 20-25%
- Had Impella placed, then Impella was able to be taken off
- TTE showed significant LAD RWMA
- GDMT with coreg 6.25, low Entresto, dapagliflozin, spironolactone
Musculoskeletal Upper Chest Wall and Bilateral Muscular Pain around Shoulders
High CPK
-Rhabdo suspected from CPR, statin -- cardiology holding statin
-Giving IV fluids for rhabdo will be challenge because of patient's ejection fraction in the 30% range
-Discussed case with cardiology; cardiology said they will consult nephrology for further guidance -- maybe consideration for Lasix to treat rhabdo
-Can use Tylenol as needed up to 2 grams daily (given recent liver injury from shock liver)
Ventilator Dependence
- Vent management per Critical Care team
- Sedated on prop/fent
Fever -- onset on 09/07/24
- Post-STEMI and ACLS/CPR fever/post infarct inflammatory response
- HOLD Tylenol (except for 1x doses for MSK pain above) to avoid masking a fever
- No clear source of infection
- No pneumonia on CXR
- Follow blood cultures - negative so far
- Urine cultures - negative
- Stop antibiotics -- on 09/09/24, I discussed stopping antibiotics with instructor technical training and wastewater design engineer and their recommendation was that antibiotics can be stopped
- Patient denied any symptoms or signs of pneumonia, UTI, cellulitis and of course no concern for [employer] ADVIS[employer] infection. Appears to be doing well.
Acute Kidney Injury
- Suspected from STEMI and cardiac arrest/shock liver
- Cr overall improved
Transaminitis
- Suspected from hypotension from STEMI and cardiac arrest/shock liver
- Continue to monitor AST and ALT -- improving
Hyperglycemia
- BG 223 at peak since admission
- Glucose currently well-controlled
- No prior hx DM. Per patient's nurse, although Insulin Drip was planned, he never got it or needed
- Diabetes MANAGER [employer]PLICATION assistance appreciated (they were consulted on admission)
GERD - Hx noted. Continue PPI
HTN
OAB - hx noted. Continue myrbetriq
History of Renal Cancer, Right Side - Resection x 2
Obstructive Sleep Apnea
- Nightly CPAP
- No prior history of smoking however patient chews tobacco
- Outpatient follow-up with sleep clinic/will need sleep study with [facility] office
Depression/Insomnia - History noted. resume venlafaxine and ambien when ok from cardiac standpoint (monitor QTC)
DVT Prophylaxis: Heparin subq
Code Status: Full Code
Anticipated Discharge: 24 - 48 hours
Subjective/Interval History
-
Date of Service: September 11, 2024
Patient was seen and examined. He was sitting comfortably [place] [facility] [place] with his family without any new chest pains, shortness of breath or dizziness. His musculoskeletal pain in his upper chest and back have improved after taking Tylenol.
Objective Data
-
Labs:
Laboratory Results
09/11/24
03:47
WBC 8.1
Hgb 11.6 L
Hct 34.5 L
Plt Count 188
Sodium 135
Potassium 3.7
Chloride 106
Carbon Dioxide 23
BUN 17
Creatinine 1.3
Glucose 103 H
Calcium 8.5
Total Bilirubin 1.1
AST 198 H
ALT 89 H
Alkaline Phosphatase 50
Vital Signs:
Vital Signs
Temp Pulse Resp BP Pulse Ox
98.2 F 79 20 90/65 96
09/11/24 13:00 09/11/24 13:00 09/11/24 13:00 09/11/24 12:53 09/11/24 13:00
I&O
09/10/24 09/11/24 09/12/24
06:59 06:59 06:59
Intake Total 20
Balance 20
--- NOTE | 2024-09-11 15:45 | W.CON.NEPH ---
Consultation
-
Date/Time Consultation Requested: 09/11/24 1352
Date/Time Consultation Performed: 09/11/24 1655
Requesting Provider: Marquise Araujo
Performing Provider: Naomi Cervantes
Reason for Consultation: Rhabomyolysis, recovernig CHETAN
Medical History
-
Chief Complaint: cp
History of Present Illness:
49-year-old gentleman History of hypertension on amlodipine, valsartan combination medication, GERD on omeprazole, depression/anxiety on venlafaxine, renal cancer status post partial resection who presented to the emergency room complaining of chest
pain on 09/06. he noted to have STEMI however complicated with a cardiac arrest and shock. Required defibrillation and CPR, intubated in the ER. He had emergent cardiac cath PCI was done for a LAD, also requiring Impala. However he had hyper
acute in-stent thrombosis status post repeat PCI On 09/07 with overlapping stent. He was seen by hematology to rule out hypercoagulable state. He is now on aspirin, parasurgrel. He also started goal-directed therapy for cardiomyopathy EF of
30-35%. Creatinine on admission was at 1.5, peaked at 2.1 however now improving to 1.3. She had significantly elevated LFTs and felt to be from cardiogenic shock which are currently improving. patient was complaining about shoulder aches,
creatinine kinase was checked today noted to be at 7000 at this current cardiac status poor EF nephrology consult for evaluation. statin were started on admission which currently are discontinued. His troponin peak is more than 400 on 09/07. He
offers no chest pain or shortness of breath. He does complain about shoulder blade achiness mostly when he moves-symptoms are bit better today. Has mild cough. No abdominal pain or nausea or vomiting. Denies any dysuria, reports urine has been
dark as well as he knows since admission. fever couple of days ago has resolved now.
Past Medical History
HTN, GERD, Renal Ca, Right Side - Resection x 2 Follow us at [place], yearly imaging surveillance, Torn Biceps, Torn Deltoid
Past Surgical History: Other (Renal Ca, Right - Resection x 2; Torn Deltoid s/p Surgery, B/L Biceps Tendon Repair, Abdominal Hernia)
Social History
Tobacco: Other ( chews tobacco)
Alcohol: Occasional
Personal:
Living: With Family
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
Family History
Family History: Not Pertinent
Allergies / Home Medications
Allergy/AdvReac Type Severity Reaction Status Date / Time
hydromorphone [From Dilaudid] Allergy Severe Anaphylaxis Verified 09/06/24 11:06
atorvastatin AdvReac Unknown muscle Uncoded 09/11/24 13:56
aches ,
elevated
CPK
�Medication �Instructions �Recorded �Confirmed �Type
amlodipine-valsartan 1 tab PO DAILY 09/06/24 09/06/24 History
mirabegron 50 mg tablet,extended 50 mg PO 09/06/24 History
release 24 hr (Myrbetriq)
omeprazole 40 mg capsule,delayed 40 mg PO DAILY Gastrointestinal 09/06/24 09/06/24 History
release Issue
venlafaxine 150 mg tablet,extended 150 mg PO DAILY Mental 09/06/24 09/06/24 History
release 24 hr Health/Anxiety
zolpidem 10 mg tablet (Ambien) 10 mg PO HS PRN insomnia 09/06/24 09/06/24 History
prasugrel HCl 10 mg tablet 10 mg PO DAILY #30 tabs 09/09/24 Rx
Review of Systems
-
All other systems: Negative unless noted
Physical Exam
Vital Signs
Vital Signs
Temp Pulse Resp BP Pulse Ox
98.2 F 79 20 90/65 96
09/11/24 13:00 09/11/24 13:00 09/11/24 13:00 09/11/24 12:53 09/11/24 13:00
Lab Results
WBC 8.1 10^3/uL (4.8-10.8) 09/11/24 03:47
RBC 4.07 10^6/uL (4.70-6.10) L 09/11/24 03:47
Hgb 11.6 g/dL (13.0-18.0) L 09/11/24 03:47
Hct 34.5 % (39.0-52.0) L 09/11/24 03:47
Plt Count 188 10^3/uL (130-400) 09/11/24 03:47
Sodium 135 mmol/L (135-145) 09/11/24 03:47
Potassium 3.7 mmol/L (3.5-5.1) 09/11/24 03:47
Chloride 106 mmol/L (98-107) 09/11/24 03:47
Carbon Dioxide 23 mmol/L (22-30) 09/11/24 03:47
BUN 17 mg/dl (9-20) 09/11/24 03:47
Creatinine 1.3 mg/dL (0.7-1.3) 09/11/24 03:47
eGFR > 60.00 09/11/24 03:47
Glucose 103 mg/dl (70-99) H 09/11/24 03:47
Calcium 8.5 mg/dl (8.4-10.2) 09/11/24 03:47
Albumin 2.9 g/dl (3.5-5.0) L 09/11/24 03:47
Physical Exam
General: Awake, Alert, Oriented, AOx3, No Distress and Nontoxic
HEENT: EOMI, Ear/Nose Intact, Facial Symmetry and Other ( some conjunctival hemorrhage bilaterally)
Respiratory: Normal Excursion, Nonlabored Respirations and Other ( coarse breath sounds bilaterally)
Cardiac: S1/S2 and Regular Rate/Rhythm
Breast: Deferred by me
Abdomen: Soft, Nontender and Nondistended
Musculoskeletal: No Cyanosis and No Edema
Skin: No Rash and Other ( tattos noted)
Neuro: Nonfocal/Grossly Intact
Psych: Mood/afflect pleasant, Insight/judgement good and Appropriate
Data Reviewed
-
Radiology: Report Reviewed by me and Discussed with Patient
Labs: Labs Reviewed by me, Discussed with Physician, Discussed with Nurse and Discussed with Patient
Assessment/Plan
-
IMP:
S/P VF/VT arrest followed by PEA arrest
Anterior STEMI s/p Impella-assisted PCI to LAD 09/06 complicated by hyperacute in-stent thrombosis s/p repeat PCI 09/07
Cardiogenic Shock with acute ischemic cardiomyopathy, HfrEF, LVEF 20-25%
Musculoskeletal Upper Chest Wall and Bilateral Muscular Pain around Shoulders
Rhabdomyolysis
Ventilator Dependence
Fever -- onset on 09/07/24-resolved
Acute Kidney Injury
Transaminitis
Hyperglycemia -a1c 5.6
GERD
HTN
OAB - hx noted.
History of Renal Cancer, Right Side - Resection x 2
Obstructive Sleep Apnea
Depression/Insomnia
Plan:
A/w STEMI, card arrest and shock, s/p emergent PCI, need to be repeated for hyperacute instent stenosis
rhabdomyolysis-suspect could be present since arrest. CPR- based on history and labs
specially with high LFTs, CHETAN -now both are improving , suspect ck could be higher before
would monitor CK trend and if worsening likely try gentle IVF with lasix
muscle pain improving today
agree to stop statin, check phos level
BP soft, on GDMT per cards
d/w pt and nursing
d/w cards
[2024-09-11 16:49] LABS: Glucose - Point of Care 75 mg/dl (70-99)
[2024-09-11 19:36] LABS: Phosphorus 3.6 mg/dl (2.5-4.5)
[2024-09-11 19:51] LABS: Creatine Phosphokinase 3920 U/L (55-170)
[2024-09-11 22:35] LABS: Glucose - Point of Care 139 mg/dl (70-99)
[2024-09-11] MEDS: TYLENOL 500 MG PO (23:21)
--- NOTE | 2024-09-11 23:49 | PTCARENOTE ---
Received pt @ change of shift. AAOx3. VSS-- NSR w/ BBB on monitor. bedside. C/o pain in upper body-- biceps, across shoulders, neck, etc. One time dose of Tylenol given-- see MAR. 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 Ecchymotic, but soft to touch.
Discussed plan of care for evening. Pt verbalizes understanding. Call flores within reach.
[2024-09-12] VITALS (9 sets, daily range): BP systolic 97–154; BP diastolic 60–125; BMI 35.3
[2024-09-12] MEDS: MORPHINE SULFATE 2 MG IV ×3 (00:23→23:01)
[2024-09-12 01:22] LABS: Beta-2-Glycoprotein I Ab. IgA <10 SAU (<=20)
[2024-09-12 01:28] LABS: Beta-2-Glycoprotein I Ab. IgG <10 SGU (<=20); Beta-2-Glycoprotein I Ab. IgM <10 SMU (<=20)
[2024-09-12 04:55] LABS: Hematocrit 33.8 % (39.0-52.0); Hemoglobin 11.3 g/dL (13.0-18.0); Mean Corp Hgb Conc. 33.4 g/dL (33.0-37.0); Mean Corpuscular Hgb 28.3 pg (27.0-31.0); Mean Corpuscular Volume 84.5 fL (80.0-94.0); Mean Platelet Volume 9.8 fL (7.4-10.4); Platelet Count 217 10^3/uL (130-400); Red Cell Dist. Width 14.7 % (11.5-14.5); White Blood Cell Count 8.6 10^3/uL (4.8-10.8)
[2024-09-12 05:26] LABS: ALT (SGPT) 85 U/L (0-50); AST (SGOT) 128 U/L (17-59); Albumin 2.9 g/dl (3.5-5.0); Alkaline Phosphatase 51 U/L (38-126); Blood Urea Nitrogen 20 mg/dl (9-20); Calcium 8.5 mg/dl (8.4-10.2); Carbon Dioxide 24 mmol/L (22-30); Chloride 106 mmol/L (98-107); Estimated Creatinine Clearance 81 ml/min; Glucose 98 mg/dl (70-99); Potassium 3.7 mmol/L (3.5-5.1); Sodium 136 mmol/L (135-145); Total Protein 5.5 g/dl (6.3-8.2); Triglycerides 179 mg/dl (10-149); eGFR > 60.00
[2024-09-12 07:46] LABS: Glucose - Point of Care 92 mg/dl (70-99)
[2024-09-12] MEDS: FLUSH (NSS) 1 FLUSH IV (07:47)
[2024-09-12] MEDS: EFFEXOR XR 150 MG PO (07:49)
[2024-09-12] MEDS: MYRBETRIQ EXTENDED RELEASE 50 MG PO (07:49)
[2024-09-12] MEDS: LOW STRENGTH ASPIRIN 81 MG TUBE (07:50)
[2024-09-12] MEDS: COREG 6.25 MG PO ×2 (07:50→19:46)
[2024-09-12] MEDS: ALDACTONE 12.5 MG PO (07:50)
[2024-09-12] MEDS: ENTRESTO 24 MG/26 MG 1 TAB PO ×2 (07:50→19:46)
[2024-09-12] MEDS: HEPARIN 5000 UNITS SC ×3 (07:50→23:00)
[2024-09-12] MEDS: PROTONIX 40 MG PO (07:50)
[2024-09-12] MEDS: FARXIGA 10 MG PO (07:50)
[2024-09-12] MEDS: MIRALAX TUBE (07:51)
[2024-09-12] MEDS: EFFIENT 10 MG PO (07:52)
[2024-09-12 08:23] LABS: Phosphorus 4.8 mg/dl (2.5-4.5)
--- NOTE | 2024-09-12 08:35 | W.PN.CD ---
Today's Communication / Plan
-
- Improving from rhabdo and acute coronary syndrome
- Continue monitoring. Watch for LFTs, CK, kidney functions, and electrolytes
- Keep on telemetry for any possible arrhythmia.
Impression / Plan
-
Impression/Plan: 49-year-old man with past medical history significant for hypertension, GERD, and renal cancer status postresection admitted anterior STEMI complicated by cardiac arrest/shock requiring Impella and PCI 09/06, s/p Impella removal
09/07. Course complicated by hyperacute in-stent thrombosis 09/07 treated with repeat PCI.
#Anterior STEMI s/p Impella-assisted PCI to LAD 09/06 complicated by hyperacute in-stent thrombosis s/p repeat PCI
-s/p PCI to LAD 09/06 ([employer] [place] 3.5 x 22 MINDI, post dilated to 4.0 mm throughout, 4.5 mm in the proximal margin)
-complicated by hyper-acute IST 09/07 treated with overlapping repeat stenting
-hematology consult given unexplained IST (no missed P2Y12 doses, no clear evidence of technical issues with stent on IVUS)
-TTE with significant LAD RWMA
-DAPT with aspirin/ticagrelor initially, now transitioned to ASA/Prasugrel after IST given presumed ticagrelor failure
-high dose, high potency statin, check Lp(a) and consider further lipid lower agents
-cont. titration of GDMT: coreg 6.25, low Entresto, dapa, hadley started today
#IST
-unclear etiology: no missed P2Y12, no technical issues with initial stent
-treated with repeat stenting and transition to Prasugrel/asa (as well as 24 hour of Integrilin)
-if occurs again, will need to consider CABG
-heme consulted to work up possible underlying clotting disorder. ( see conuslt Dr Aquino)
- no LV thrombus on TTE with contrast
# Rhabdomyolysis/shoulder pain
- Patient's CK was 7128 that has gradually dropped down to 2305 this morning.
-Combination of acute coronary syndrome and rhabdomyolysis is a serious threat to life. Needs close monitoring.
- LFTs were elevated that is also improving.
- both ALT and AST are improving
-Adequate hydration.
- Will hold atorvastatin for next couple days and assess and then transition to Crestor.
# Fever,
- temp 100.9 09/09/2024. Tmax last 24 hours 99.2. Chest x-ray repeated 09/10/2024 with no infiltrate. Urinalysis with RBC 0-2, WBC 6-10 squamous 0-2 few bacteria. Also reported 4+ occult blood reflex. Previous culture 09/07/2024 negative BC
09/07/2024 negative
- Defer to primary team regarding urinalysis. Monitor temps.
#Cardiogenic shock, resolved
-s/p Impella removal
-Hico juanjose catheter removed today with final MVO2 71%, PAD ~20
#Ventricular tachycardia/ACLS, resolved
-amio/lido drips weaned off
DATA:
TTE 09/08/2024
CONCLUSIONS
Limited follow-up study with echo contrast.
Moderate to severely reduced left ventricular function with estimated ejection
fraction of 30 to 35%.
Anterior, anteroseptal, septal ,apical and distal inferior hypokinesis.
Compared to the previous report findings are similar. Previous study estimated
ejection fraction 25 to 30%
Cardiac Catheterization/PCI, 09/06/2024:
CONCLUSIONS
1. Coronary artery disease as described with culprit 100% occlusion of the mid LAD
2. Successful Impella placement for cardiogenic shock and support of subsequent PCI
3. Successful IVUS guided PCI to the mid LAD with placement of a 3.5 x 22 mm [place] frontier drug-eluting stent postdilated to 4 mm distally and 4.5 mm proximally
4. Right heart cath (on Impella support) demonstrating elevated biventricular filling pressures, moderate postcapillary pulmonary hypertension, and normal cardiac output.
Transthoracic Echocardiogram, 09/06/2024:
CONCLUSIONS
Severely reduced left ventricular systolic function. Left ventricular ejection
fraction is 20-25%.
Hypokinesis of the mid to apical anterior segments, mid to apical septal
segments, apical inferior and apical lateral segments, and apex.
Impella visualized crossing aortic valve into LV.
No significant valve disease.
No prior study available for comparison.
Physical Exam
Vital Signs/Labs
Vital Signs
Temp Pulse Resp BP Pulse Ox
98.7 F 72 20 97/72 99
09/12/24 06:48 09/12/24 07:00 09/12/24 06:48 09/12/24 06:49 09/12/24 06:48
09/11/24 09/12/24 09/13/24
06:59 06:59 06:59
Actual Weight 106.9 kg 105.3 kg
09/12/24 04:23
09/12/24 04:23
PT 19.5 Sec (11.4-14.6) H 09/09/24 04:34
INR 1.59 09/09/24 04:34
APTT 40.5 Sec (23.4-35.0) H 09/07/24 22:22
Magnesium 1.7 mg/dl (1.6-2.3) 09/09/24 06:39
Triglycerides 179 mg/dl (10-149) H 09/12/24 04:23
LDL Cholesterol, Calc 114 mg/dl 09/07/24 03:16
VLDL Cholesterol, Calc 20 mg/dl (0-30) 09/07/24 03:16
HDL Cholesterol 30 mg/dl 09/07/24 03:16
Physical Exam
Constitutional: No acute distress and Comfortable
EENT: Anicteric and Moist mucous membranes
Cardiovascular: Rhythm & rate is regular, Pedal edema is absent and JVD pressure is normal
Respiratory: Respiratory effort normal, Lungs clear to auscul. and Wheeze Absent
GI: Soft, Distention absent and Non tender
Neuro/Psych: Alert, Oriented and AO x 3
Data Reviewed
-
Date of Service: September 12, 2024
Medical Decision Making: Reviewed Test Results, Test Interpretation and Review of Case with other Provider
EKG: Tracing Personally Visualized and interpreted
Echo: Report Reviewed by me
Labs: Labs Reviewed by me
Old Records: Reviewed
[2024-09-12 09:04] LABS: Creatine Phosphokinase 2305 U/L (55-170)
[2024-09-12 12:46] LABS: Glucose - Point of Care 106 mg/dl (70-99)
--- NOTE | 2024-09-12 13:56 | W.PN.NEPH.PH ---
Today's Communication / Plan
-
follow labs
Assessment/Plan
-
IMP:
S/P VF/VT arrest followed by PEA arrest
Anterior STEMI s/p Impella-assisted PCI to LAD 09/06 complicated by hyperacute in-stent thrombosis s/p repeat PCI 09/07
Cardiogenic Shock with acute ischemic cardiomyopathy, HfrEF, LVEF 20-25%
Musculoskeletal Upper Chest Wall and Bilateral Muscular Pain around Shoulders
Rhabdomyolysis
Ventilator Dependence
Fever -- onset on 09/07/24-resolved
Acute Kidney Injury
Transaminitis
Hyperglycemia -a1c 5.6
GERD
HTN
OAB - hx noted.
History of Renal Cancer, Right Side - Resection x 2
Obstructive Sleep Apnea
Depression/Insomnia
Plan:
A/w STEMI, card arrest and shock, s/p emergent PCI, need to be repeated for hyperacute instent stenosis
rhabdomyolysis-suspect could be present since arrest.
ck is improving with out IVF, cont monitor
agree to hold statin
BP soft, on GDMT per cards
cr stable at 1.3
d/w pt
will s/o, call with ?s
-
-
Date of Service: September 12, 2024
CC / HPI / ROS
-
Chief Complaint:
Rhabdomyolysis, Irais
History of Present Illness:
cr stable at 1.3
CK down to 2305
Bp soft but stable
Review of Systems:
no sob or edema
muscle pain in upper back improving slowly
Labs
-
Labs:
WBC 8.6 10^3/uL (4.8-10.8) 09/12/24 04:23
RBC 4.00 10^6/uL (4.70-6.10) L 09/12/24 04:23
Hgb 11.3 g/dL (13.0-18.0) L 09/12/24 04:23
Hct 33.8 % (39.0-52.0) L 09/12/24 04:23
Plt Count 217 10^3/uL (130-400) 09/12/24 04:23
Sodium 136 mmol/L (135-145) 09/12/24 04:23
Potassium 3.7 mmol/L (3.5-5.1) 09/12/24 04:23
Chloride 106 mmol/L (98-107) 09/12/24 04:23
Carbon Dioxide 24 mmol/L (22-30) 09/12/24 04:23
BUN 20 mg/dl (9-20) 09/12/24 04:23
Creatinine 1.3 mg/dL (0.7-1.3) 09/12/24 04:23
eGFR > 60.00 09/12/24 04:23
Glucose 98 mg/dl (70-99) 09/12/24 04:23
Calcium 8.5 mg/dl (8.4-10.2) 09/12/24 04:23
Phosphorus 4.8 mg/dl (2.5-4.5) H 09/12/24 04:23
Albumin 2.9 g/dl (3.5-5.0) L 09/12/24 04:23
Physical Exam
-
Vital Signs:
Vital Signs
Temp Pulse Resp BP Pulse Ox
98.1 F 91 20 104/64 100
09/12/24 11:46 09/12/24 11:49 09/12/24 11:46 09/12/24 11:49 09/12/24 11:46
Cardiovascular:: Regular rate and rhythm
Respiratory:: Bilateral: CTA
Lung Excursion:: Normal
Extremity Edema:: None: Bilateral:
Mazariegos Catheter: No
[2024-09-12 16:22] LABS: Cardiolipin IgA Antibody <10 APL (<=11); Cardiolipin IgM Antibody 10 MPL (<=12); Cardiolipin Igg Antibody <10 GPL (<=14)
--- NOTE | 2024-09-12 16:31 | W.PN.HOSP.TC ---
Today's Communication/Plan
-
allow pt to shower
follow labs
reviewed with cardio
Assessment / Plan
Assessment / Plan
Assessment/Plan
49yo M with HTN, GERD, Renal Ca, Right Side - Resection x 2, Torn Biceps, Torn Deltoid; No known DM history presented to the ER with Chest Pain. Dr. Castorena spoke with patient's ([phone]) for more information. Outside moving concrete.
+SOB. Dropped to Knees. 'Cant feel my arms.' No immediate chest pain; did have back 'soreness'. On 09/05/24, he was in [place] throwing the football. Had slight discomfort but did not seek further attention. Upon arrival to Triage. Patient had
trouble sitting back. Had Chest Pain radiating down both arms. ROS unattainable.
Hospital Course:
'Shortly after arrival he suffered a cardiac arrest. Patient brought back to resuscitation room. Patient was quickly placed on the monitor and found to be in ventricular fibrillation. He was shocked into a wide-complex idioventricular rhythm and
there was a pulse with this patient given 300 mg of amiodarone and the patient converted to sinus tachycardia. An additional EKG was obtained which shows an acute anterior wall SC. There is ST elevation in leads I, aVL, V1, V2, V3 with reciprocal
changes. A STEMI alert was called. Patient was intubated by Dr. Santiago on the second attempt. Patient was ventilated with a bag valve mask and an oral airway between intubations. Patient had a second V-fib arrest. He was shocked and the
resultant rhythm was asystole. Patient received CPR for about 3 rounds of epinephrine. Ultimately had return of spontaneous circulation. Dr. Box was quickly at the bedside after the STEMI was called. He requested 100 mg of lidocaine. After
return of spontaneous circulation the patient was taken to the [facility]. During the transport he had 2 episodes of ventricular tachycardia for which he received synchronous cardioversion to sinus rhythm with 200 J. Patient transferred to the Cath
Lab table'
Anterior wall STEMI complicated by Cardiac arrest due to Ventricular Fibrillation/Ventricular Tachycardia
- Pt presented with dyspnea and near syncope after lifting heavy concrete. Followed by back soreness and chest pain radiating to b/l arms and syncope
- EKG: NSR @ 69bpm, STEMI V2-V6, I-AVL, Reciprocal Depression II-AVF, QTC 422ms.
- S/P VF/VT arrest followed by PEA arrest. Emergent Cath with Mid LAD lesion s/p MINDI. Pt's Impella was removed, previously was extubated
- Heparin Drip stopped as per cardio
- Weaned off lidocaine and Amio gtt as per ICU/Cardio recs
- Recurrent Chest pain on 09/07/24 --> emergent pathology laboratory aide --> acute stent thrombosis in mid LAD stent (? Ticagrelor failure), s/p aspiration thrombectomy and PCI of proximal LAD and PCI of previously stented segment
- Was on Integrilin and cangrelor infusions --> cangrelor and Integrilin taken off
- Goal is to continue on aspirin/prasugrel dual therapy.
- Hematology consult for atypical thrombosis evaluation
- Once discharged, follow-up with Dr. James Barrera outpatient
Lp(a) <6
In-Stent Thrombosis
-unclear etiology: no missed P2Y12, no technical issues with initial stent
-treated by cardiology with repeat stenting and transition to Prasugrel/asa (as well as 24 hour of Integrilin)
-if occurs again, will need to consider CABG
-hematology consulted
-no LV thrombus on TTE with contrast
Cardiogenic Shock with acute ischemic cardiomyopathy, HfrEF, LVEF 20-25%
- Had Impella placed, then Impella was able to be taken off
- TTE showed significant LAD RWMA
- GDMT with coreg 6.25, low Entresto, dapagliflozin, spironolactone
Musculoskeletal Upper Chest Wall and Bilateral Muscular Pain around Shoulders
High CPK, improved
09/11 7128-->3920-->09/12 2305
-Rhabdo suspected from CPR, statin -- cardiology holding statin
-Giving IV fluids for rhabdo will be challenge because of patient's ejection fraction in the 30% range
-Can use Tylenol as needed up to 2 grams daily (given recent liver injury from shock liver)
Ventilator Dependence
fully resolved
Fever -- onset on 09/07/24
fully resolved >48hrs
- Post-STEMI and ACLS/CPR fever/post infarct inflammatory response
- HOLD Tylenol (except for 1x doses for MSK pain above) to avoid masking a fever
- No clear source of infection
- No pneumonia on CXR
- Follow blood cultures - negative so far
- Urine cultures - negative
- Stopped antibiotics -- on 09/09/24,
- Patient denied any symptoms or signs of pneumonia, UTI, cellulitis and of course no concern for [employer] infection. Appears to be doing well.
Acute Kidney Injury
- Suspected from STEMI and cardiac arrest/shock liver
- Cr overall improved
2.1-->1.3
Transaminitis
- Suspected from hypotension from STEMI and cardiac arrest/shock liver
- Continue to monitor AST and ALT -- improving
AST 1096-->128
Hyperglycemia
- BG 223 at peak since admission
- Glucose currently well-controlled 98 on 09/12
- No prior hx DM. Per patient's nurse, although Insulin Drip was planned, he never got it or needed
- Diabetes BOOK[facility] assistance appreciated (they were consulted on admission)
GERD - Hx noted. Continue PPI
HTN
OAB - hx noted. Continue myrbetriq
History of Renal Cancer, Right Side - Resection x 2
Obstructive Sleep Apnea
- Nightly CPAP
- No prior history of smoking however patient chews tobacco
- Outpatient follow-up with sleep clinic/will need sleep study with [facility] office
Depression/Insomnia - History noted. resume venlafaxine and ambien when ok from cardiac standpoint (monitor QTC)
discussed with Dr. Piedra, pt cleared to take shower and be off monitor
DVT Prophylaxis: Heparin subq
Code Status: Full Code
Anticipated Discharge: > 48 hours
Subjective/Interval History
-
Date of Service: September 12, 2024
Generally feels well
Objective Data
-
Labs:
Laboratory Results
09/12/24
04:23
WBC 8.6
Hgb 11.3 L
Hct 33.8 L
Plt Count 217
Sodium 136
Potassium 3.7
Chloride 106
Carbon Dioxide 24
BUN 20
Creatinine 1.3
Glucose 98
Calcium 8.5
Total Bilirubin 1.0
AST 128 H
ALT 85 H
Alkaline Phosphatase 51
Vital Signs:
Vital Signs
Temp Pulse Resp BP Pulse Ox
99.1 F 89 20 118/73 99
09/12/24 15:56 09/12/24 15:56 09/12/24 15:56 09/12/24 15:56 09/12/24 15:56
I&O
09/11/24 09/12/24 09/13/24
06:59 06:59 06:59
Intake Total 960 / 960 840 / 840 480 / 480
Balance 960 / 960 840 / 840 480 / 480
Review of Systems
-
History Source: Patient and Coordinated Provider
Constitutional: Denies Fever
EENT: Reports No Symptoms Reported
Respiratory: Reports No Symptoms; Denies Cough or Trouble Breathing
Cardiac: Reports No Symptoms; Denies Chest Pain
Abdomen/GI: Reports No Symptoms
Musculoskeletal: Reports No Symptoms
Physical Exam
-
General: Well Developed, Well Nourished and No Apparent Distress
HEENT: Normocephalic, Atraumatic and Moist Mucous Membranes
Respiratory: Clear to Auscultation; Negative Wheezes, Rales or Rhonchi
Cardiac: Regular Rhythm and S1/S2
GI: Soft, Nontender and Nondistended
Musculoskeletal: No Clubbing, No Cyanosis and No Edema
Skin: Warm and Dry
--- NOTE | 2024-09-12 17:34 | PTCARENOTE ---
The patient has been oob and ambulatory in the halls all shift. He has no complaints of pain. NSR with frequent PACs have been noted on the monitor. His vital signs remain stable. He showered.
[2024-09-12 22:23] LABS: Phosphatidylserine Ab, IgA 0 APS (0-19); Phosphatidylserine Ab, IgG 0 GPS (0-15); Phosphatidylserine Ab, IgM 0 MPS (0-21)
--- NOTE | 2024-09-13 02:46 | PTCARENOTE ---
Received pt @ change of shift. AAOx3. VSS-- NSR w/ BBB and PACs on monitor. Left groin TAPER MACHINE and ecchymotic. Right groin site TAPER MACHINE and ecchymotic. Rt neck ELÍAS. Rt wrist ELÍAS. Verbalizes upper body pain being more tolerable during day and movement, but
hurting post shower. Discussed plan of care for evening. Agrees to call RN with additional pain. Pt resting quietly. Call flores within reach.
--- NOTE | 2024-09-13 02:50 | PTCARENOTE ---
Pt running temp of 100.6 @ bedtime VS. Pt does not feel like he has a fever, and verbalizes having fevers/waking up soaked often at home during the night. RN discussed holding Tylenol for time being, but to inform RN if pain increases or becomes
symptomatic of fever. Morphine given for rhabdo pain-- see JUN.
[2024-09-13] MEDS: MORPHINE SULFATE 2 MG IV (03:54)
[2024-09-13 04:01] VITALS: BP 96/59
[2024-09-13 04:49] LABS: % Basophils 0.5 % (0-2); % Eosinophils 3.8 % (0-6); % Immature Granulocytes 1.6 % (0-0.5); % Lymphocytes 23.6 % (20.5-51.1); % Monocytes 11.5 % (1.7-9.3); Absolute Eosinophils 0.3 10^3/uL (0-0.7); Absolute Immature Granulocytes 0.1 10^3/uL (0-0.05); Absolute Neutrophils 4.9 10^3/uL (1.4-6.5); Mean Corp Hgb Conc. 34.4 g/dL (33.0-37.0); Mean Corpuscular Hgb 28.9 pg (27.0-31.0); Mean Corpuscular Volume 84.2 fL (80.0-94.0); Mean Platelet Volume 10.2 fL (7.4-10.4); Nucleated Red Blood Cells % 0 % (-); Platelet Count 232 10^3/uL (130-400); Red Cell Dist. Width 14.8 % (11.5-14.5); White Blood Cell Count 8.3 10^3/uL (4.8-10.8)
[2024-09-13 05:22] LABS: ALT (SGPT) 79 U/L (0-50); AST (SGOT) 76 U/L (17-59); Albumin 2.9 g/dl (3.5-5.0); Alkaline Phosphatase 51 U/L (38-126); Blood Urea Nitrogen 19 mg/dl (9-20); Calcium 8.5 mg/dl (8.4-10.2); Carbon Dioxide 25 mmol/L (22-30); Chloride 108 mmol/L (98-107); Creatine Phosphokinase 782 U/L (55-170); Estimated Creatinine Clearance 88 ml/min; Glucose 107 mg/dl (70-99); Sodium 136 mmol/L (135-145); Total Bilirubin 0.8 mg/dl (0.2-1.3); Total Protein 5.7 g/dl (6.3-8.2); eGFR > 60.00
--- NOTE | 2024-09-13 08:13 | PN.DE.MGMTRT ---
Insulin Management
- -
09/13/2024: Diabetes Management Follow up
Patient admitted 09/06 s/p c/o chest pain. Within minutes of arrival to ED was unresponsive - cardiac arrest. PMH HTN, GERD, renal ca - resectioned. No diabetes mentioned or diabetes medications. A1C 5.6%, cr 2.1, eGFR 37.88.
Patient is s/p cardiac cath with stent LAD, with Impella.
Patient extubated 09/07, is awake alert and orient. Patient has no history of diabetes himself or in his family. Insulin infusion never started, discontinued. Glucose stable and in range, 132 to 136, required no corrective insulin. FBG 107 this AM.
Over the weekend Accucheks stopped and corrective insulin stopped.
Will sign off,patient for possible discharge today.
Discussed with nurse.
Diabetes History
- -
Pre-Admission Diabetes Regimen
09/13/24
04:40
Creatinine 1.2
Lab Results
Hemoglobin A1c Cancelled 09/06/24 18:06
Insulin Pump Settings
IP Diabetes Regimen
09/12/24 09/13/24
12:44 04:40
Glucose 107 H
POC Glucose 106 H
Meal type: Dinner
Meal type: Lunch
Amount consumed: 100%
Amount consumed: 100%
Patient Education
[2024-09-13 08:18] VITALS: BP 102/72
[2024-09-13] MEDS: EFFEXOR XR 150 MG PO (08:28)
[2024-09-13] MEDS: FARXIGA 10 MG PO (08:28)
[2024-09-13] MEDS: MYRBETRIQ EXTENDED RELEASE 50 MG PO (08:28)
[2024-09-13] MEDS: EFFIENT 10 MG PO (08:28)
[2024-09-13] MEDS: ALDACTONE 12.5 MG PO (08:28)
[2024-09-13] MEDS: COREG 6.25 MG PO (08:29)
[2024-09-13] MEDS: HEPARIN 5000 UNITS SC (08:29)
[2024-09-13] MEDS: LOW STRENGTH ASPIRIN 81 MG TUBE (08:29)
[2024-09-13] MEDS: PROTONIX 40 MG PO (08:29)
[2024-09-13] MEDS: ENTRESTO 24 MG/26 MG 1 TAB PO (08:29)
[2024-09-13] MEDS: MIRALAX TUBE (08:35)
--- NOTE | 2024-09-13 08:52 | PTCARENOTE ---
received patient this am sleeping with his cpap on. patient was easily awakened, sleeping on couch. patient ambulated to bathroom, gets fatigued when walking and noticed SOB, but o2 sat remains 96%. monitor shows NSR with PAC's. VSS. patient
still c/o upper shoulder area pain but doesn't request pain medication at this time.
--- NOTE | 2024-09-13 09:15 | W.PN.CD ---
Today's Communication / Plan
-
Ok for discharge today
Continue ASA, prasugrel, rosuvastatin, carvedilol 3.25 BID, low dose Entresto, dapagliflozin, and Spironolactone 12.5
Follow up with LEIGH ANN Abreu on 10/06/24 @ 10AM
Impression / Plan
-
Impression/Plan: 49-year-old man with past medical history significant for hypertension, GERD, and renal cancer status postresection admitted anterior STEMI complicated by cardiac arrest/shock requiring Impella and PCI 09/06, s/p Impella removal
09/07. Course complicated by hyperacute in-stent thrombosis 09/07 treated with repeat PCI.
#Anterior STEMI s/p Impella-assisted PCI to LAD 09/06 complicated by hyperacute in-stent thrombosis s/p repeat PCI
-s/p PCI to LAD 09/06 ([employer] Deven 3.5 x 22 MINDI, post dilated to 4.0 mm throughout, 4.5 mm in the proximal margin)
-complicated by hyper-acute IST 09/07 treated with overlapping repeat stenting
-hematology consult given unexplained IST (no missed P2Y12 doses, no clear evidence of technical issues with stent on IVUS); work-up pending
-TTE with significant LAD RWMA
-DAPT with aspirin/ticagrelor initially, now transitioned to ASA/Prasugrel after IST given presumed ticagrelor failure
-start Rosuvastatin 40mg daily
#Ischemic cardiomyopathy
-TTE 09/08/24: LVEF 30-35%, LAD WMA
-cont GDMT: coreg 6.25, low Entresto, dapa, hadley 12.5
-uptitrate as outpatient
-reassess for ICD in 3 months
#IST
-unclear etiology: no missed P2Y12, no technical issues with initial stent
-treated with repeat stenting and transition to Prasugrel/asa (as well as 24 hour of Integrilin)
-if occurs again, will need to consider CABG
-heme consulted to work up possible underlying clotting disorder. ( see consult Dr Aquino); Lupus anticoagulant, anticardiolipin antibody, beta-2 glycoprotein antibody and prothrombin gene mutation pending
-no LV thrombus on TTE with contrast
#Shoulder pain
-there was a question of rhabdomyolysis in the setting of bilateral shoulder pain and elevated CK (peak 7128)
-CK is likely myocardial; troponin was above upper limit of assay. CK downtrended without intervention
-Resume statin as above
# Fever, resolved
#Cardiogenic shock, resolved
-s/p Impella removal
-[place] juanjose catheter removed today with final MVO2 71%, PAD ~20
#Ventricular tachycardia/ACLS, resolved
-amio/lido drips weaned off
-no alarms on telemetry
Subjective: Patient feels well. Has been ambulating the halls without any symptoms. Bilateral shoulder pain persists. No events on telemetry.
DATA:
TTE 09/08/2024
CONCLUSIONS
Limited follow-up study with echo contrast.
Moderate to severely reduced left ventricular function with estimated ejection
fraction of 30 to 35%.
Anterior, anteroseptal, septal ,apical and distal inferior hypokinesis.
Compared to the previous report findings are similar. Previous study estimated
ejection fraction 25 to 30%
Cardiac Catheterization/PCI, 09/06/2024:
CONCLUSIONS
1. Coronary artery disease as described with culprit 100% occlusion of the mid LAD
2. Successful Impella placement for cardiogenic shock and support of subsequent PCI
3. Successful IVUS guided PCI to the mid LAD with placement of a 3.5 x 22 mm Deven frontier drug-eluting stent postdilated to 4 mm distally and 4.5 mm proximally
4. Right heart cath (on Impella support) demonstrating elevated biventricular filling pressures, moderate postcapillary pulmonary hypertension, and normal cardiac output.
Transthoracic Echocardiogram, 09/06/2024:
CONCLUSIONS
Severely reduced left ventricular systolic function. Left ventricular ejection
fraction is 20-25%.
Hypokinesis of the mid to apical anterior segments, mid to apical septal
segments, apical inferior and apical lateral segments, and apex.
Impella visualized crossing aortic valve into LV.
No significant valve disease.
No prior study available for comparison.
Physical Exam
Vital Signs/Labs
Vital Signs
Temp Pulse Resp BP Pulse Ox
98.4 F 79 18 102/72 96
09/13/24 08:20 09/13/24 08:29 09/13/24 08:20 09/13/24 08:29 09/13/24 08:39
09/12/24 09/13/24 09/14/24
06:59 06:59 06:59
Actual Weight 232 lb 2.348 oz
09/13/24 04:40
09/13/24 04:40
PT 19.5 Sec (11.4-14.6) H 09/09/24 04:34
INR 1.59 09/09/24 04:34
APTT 40.5 Sec (23.4-35.0) H 09/07/24 22:22
Magnesium 1.7 mg/dl (1.6-2.3) 09/09/24 06:39
Triglycerides 179 mg/dl (10-149) H 09/12/24 04:23
LDL Cholesterol, Calc 114 mg/dl 09/07/24 03:16
VLDL Cholesterol, Calc 20 mg/dl (0-30) 09/07/24 03:16
HDL Cholesterol 30 mg/dl 09/07/24 03:16
Physical Exam
Constitutional: No acute distress and Comfortable
Cardiovascular: Rhythm & rate is regular, Pedal edema is absent, S1S2 is normal and Murmur/rub/gallop absent
Respiratory: Respiratory effort normal and Lungs clear to auscul.
Neuro/Psych: AO x 3
Data Reviewed
-
Date of Service: September 13, 2024
Medical Decision Making: Reviewed Test Results, Independent Historian Assessment, Test Interpretation and Review of Case with other Provider
EKG: Tracing Personally Visualized and interpreted
Echo: Report Reviewed by me
Labs: Labs Reviewed by me
--- NOTE | 2024-09-13 10:47 | W.PN.ONC2 ---
Today's Communication / Plan
-
OP follow up will be arranged upon discharge
Impression
Impression
Anterior wall myocardial infarction
Stent with reocclusion
Anemia
Leukocytosis
Acute renal insufficiency
Elevated LFTs
Hypertension
GERD
Status post right renal cell carcinoma post resection
Plan
Plan
Atypical thrombosis evaluation
Lupus anticoagulant, anticardiolipin antibody, beta-2 glycoprotein antibody, and prothrombin gene mutation (factor II activity) are pending
Monitor CBC
Subjective/Objective
Subjective
no new complaints
ambulating without SOB or chest pain
denies bleeding
Vital Signs:
Vital Signs
Temp Pulse Resp BP Pulse Ox
98.4 F 79 18 102/72 96
09/13/24 08:20 09/13/24 08:29 09/13/24 08:20 09/13/24 08:29 09/13/24 08:39
Lab Results:
Laboratory Data
WBC 8.3 10^3/uL (4.8-10.8) 09/13/24 04:40
Hgb 11.0 g/dL (13.0-18.0) L 09/13/24 04:40
Plt Count 232 10^3/uL (130-400) 09/13/24 04:40
PT 19.5 Sec (11.4-14.6) H 09/09/24 04:34
INR 1.59 09/09/24 04:34
APTT 40.5 Sec (23.4-35.0) H 09/07/24 22:22
eGFR > 60.00 09/13/24 04:40
Physical Exam
General: Well Developed, Well Nourished
HEENT: Normocephalic, Moist Mucous Membranes, hyperemia
Respiratory: Clear
Cardiac: S1/S2 and Regular Rhythm
GI: Soft, Non Tender, Non Distended
Musculoskeletal: No Clubbing, No Cyanosis and No Edema
Skin: Warm and Dry; Negative Rash No atypical bruising or bleeding
Neuro: Awake, Alert, oriented x 3
--- NOTE | 2024-09-13 11:40 | PTCARENOTE ---
factor 2 activity was drawn and sent to lab.
[2024-09-13 12:10] VITALS: BP 106/59
--- NOTE | 2024-09-13 12:33 | CM ---
spoke to pt and in room, heis ready for dc. picked up praugrel from pharmacy. no other dc needs noted.
--- NOTE | 2024-09-13 12:34 | PTCARENOTE ---
D/C instructions given to patient and , both verbalizes understanding. INT D/C'd, telemetry D/C'd, personal belongings packed and sent home with patient. D/C to home via wc accompanied by staff.
--- NOTE | 2024-09-13 12:43 | W.DS.TRANS ---
Addendum entered and electronically signed by Yahaira Martinez NP 09/16/24 12:23:
Pt was d/c on coreg 3.125mg po BID. Rx was sent via [facility] OP chart.
Original Note:
DC Summary - Returning Officer
-
Discharge Instructions:
Discharge Diagnosis/Procedures Cardiac arrest, STEMI, Angioplasty with stent to
LAD (09/06), In-stent acute thrombosis post
thrombectomy and stent to LAD x3 (09/07),
Diet Low Cholesterol,2 Gram Sodium,Restrict fluids to
48 oz
Activity No strenuous activity
Driving Restrictions As prior to admission
Bathing Restrictions None
Blood Work BMP in 1 week
Other Services Cardiac Rehab
Instructions:
Stand-Alone Forms: DC Instructions- Cath/EP Lab
Changes to Home Medications: Yes
Discharge Medications:
DC Medications w/original date entered in [facility]
mirabegron 50 mg tablet,extended release 24 hr (Myrbetriq) 50 mg PO 09/06/24
venlafaxine 150 mg tablet,extended release 24 hr 150 mg PO DAILY Mental Health/Anxiety 09/06/24
zolpidem 10 mg tablet (Ambien) 10 mg PO HS PRN insomnia 09/06/24
prasugrel HCl 10 mg tablet 10 mg PO DAILY #30 tabs 09/09/24
aspirin 81 mg chewable tablet 81 mg PO DAILY CAD #30 tabs 09/13/24
dapagliflozin propanediol 10 mg tablet 10 mg PO DAILY #30 tabs 09/13/24
nitroglycerin 0.4 mg sublingual tablet 0.4 mg sublingual [id number] PRN chest pain #25 tabs 09/13/24
rosuvastatin 40 mg tablet 40 mg PO QPM #30 tabs 09/13/24
sacubitril 24 mg-valsartan 26 mg tablet (Entresto) 1 tab PO BID #60 tabs 09/13/24
spironolactone 25 mg tablet 12.5 mg (1/2 x 25 mg) PO DAILY #15 tabs 09/13/24
Home Medication Changes
New:
prasugrel HCl 10 mg tablet 10 mg PO DAILY #30 tabs 09/09/24
aspirin 81 mg chewable tablet 81 mg PO DAILY CAD #30 tabs 09/13/24
dapagliflozin propanediol 10 mg tablet 10 mg PO DAILY #30 tabs 09/13/24
nitroglycerin 0.4 mg sublingual tablet 0.4 mg sublingual [id number] PRN chest pain #25 tabs 09/13/24
rosuvastatin 40 mg tablet 40 mg PO QPM #30 tabs 09/13/24
sacubitril 24 mg-valsartan 26 mg tablet (Entresto) 1 tab PO BID #60 tabs 09/13/24
spironolactone 25 mg tablet 12.5 mg (1/2 x 25 mg) PO DAILY #15 tabs 09/13/24
Pending Results: No
[2024-09-14 16:11] LABS: Anti-Xa Qualitative Interp Not Performed (Not Present); Anticoagulant Med Neutralizati Not Performed (Not Performed); Hexagonal Phospholipid Confirm Not Performed s (<=7.9); Lupus Anticoag Interpretation Not Done; Neutralized PTT-LA Ratio Not Performed (<=1.20); Neutralized dRVTT Screen Ratio Not Performed (<=1.20); Thrombin Time Not Performed s (<=19.5); dRVTT 1.1 Mix Ratio Not Performed (<=1.20); dRVTT Confirmation Ratio Not Performed (<=1.20)
[2024-09-15 01:43] LABS: Factor 2 Activity(Prothrombin) 109 % (86-150)
== END 2024-09-13 12:39 | disposition home or self-care (01) | DRG 215 ==
LOC: IVU 12:53
PROVIDERS: Clinical Nurse Specialist Acute Care; Hospitalist; Internal Medicine; Internal Medicine Cardiovascular Disease; Internal Medicine Interventional Cardiology; Nurse Practitioner; Nurse Practitioner Acute Care; Nurse Practitioner Adult Health; Physician Assistant Medical; ADMITTING PHYSICIAN Student in an Organized Health Care Education/Training Program; CONSULT PHYSICIAN Internal Medicine; CONSULT PHYSICIAN Internal Medicine Hematology & Oncology; EMERGENCY PHYSICIAN Emergency Medicine; OTHER PHYSICIAN Internal Medicine
PROC: 5A0221D Assistance with Cardiac Output using Impeller Pump, Continuous (ICD-10-PCS; 2024-09-06)
PROC: 0BH17EZ Insertion of Endotracheal Airway into Trachea, Via Natural or Artificial Opening (ICD-10-PCS; 2024-09-06)
PROC: 5A2204Z Restoration of Cardiac Rhythm, Single (ICD-10-PCS; 2024-09-06)
PROC: 4A023N8 Measurement of Cardiac Sampling and Pressure, Bilateral, Percutaneous Approach (ICD-10-PCS; 2024-09-06)
PROC: 03HY32Z Insertion of Monitoring Device into Upper Artery, Percutaneous Approach (ICD-10-PCS; 2024-09-06)
PROC: 02HA3RZ Insertion of Short-term External Heart Assist System into Heart, Percutaneous Approach (ICD-10-PCS; 2024-09-06)
PROC: 027034Z Dilation of Coronary Artery, One Artery with Drug-eluting Intraluminal Device, Percutaneous Approach (ICD-10-PCS; 2024-09-06)
PROC: B240ZZ3 Ultrasonography of Single Coronary Artery, Intravascular (ICD-10-PCS; 2024-09-06)
PROC: 5A1935Z Respiratory Ventilation, Less than 24 Consecutive Hours (ICD-10-PCS; 2024-09-06)
PROC: 5A12012 Performance of Cardiac Output, Single, Manual (ICD-10-PCS; 2024-09-06)
PROC: B2111ZZ Fluoroscopy of Multiple Coronary Arteries using Low Osmolar Contrast (ICD-10-PCS; 2024-09-06)
PROC: 4A023N7 Measurement of Cardiac Sampling and Pressure, Left Heart, Percutaneous Approach (ICD-10-PCS; 2024-09-07)
PROC: 02PA3RZ Removal of Short-term External Heart Assist System from Heart, Percutaneous Approach (ICD-10-PCS; 2024-09-07)
PROC: 027035Z Dilation of Coronary Artery, One Artery with Two Drug-eluting Intraluminal Devices, Percutaneous Approach (ICD-10-PCS; 2024-09-07)
PROC: 02C03ZZ Extirpation of Matter from Coronary Artery, One Artery, Percutaneous Approach (ICD-10-PCS; 2024-09-07)
DX: I21.09 ST elevation (STEMI) myocardial infarction involving other coronary artery of anterior wall (principal); I46.2 Cardiac arrest due to underlying cardiac condition; I49.01 Ventricular fibrillation; R57.0 Cardiogenic shock; I25.42 Coronary artery dissection; I50.21 Acute systolic (congestive) heart failure; K72.00 Acute and subacute hepatic failure without coma; J96.01 Acute respiratory failure with hypoxia; I47.20 Ventricular tachycardia, unspecified; T82.867A Thrombosis due to cardiac prosthetic devices, implants and grafts, initial encounter; M62.82 Rhabdomyolysis; N17.9 Acute kidney failure, unspecified; E87.4 Mixed disorder of acid-base balance; I24.1 Dressler's syndrome; I11.0 Hypertensive heart disease with heart failure; R73.9 Hyperglycemia, unspecified; K21.9 Gastro-esophageal reflux disease without esophagitis; N32.81 Overactive bladder; F32.A Depression, unspecified; G47.00 Insomnia, unspecified; D64.9 Anemia, unspecified; D72.829 Elevated white blood cell count, unspecified; I25.5 Ischemic cardiomyopathy; Y84.0 Cardiac catheterization as the cause of abnormal reaction of the patient, or of later complication, without mention of misadventure at the time of the procedure; R50.9 Fever, unspecified; G47.33 Obstructive sleep apnea (adult) (pediatric); I25.10 Atherosclerotic heart disease of native coronary artery without angina pectoris; I27.29 Other secondary pulmonary hypertension; Z85.528 Personal history of other malignant neoplasm of kidney; Z72.0 Tobacco use; Z82.49 Family history of ischemic heart disease and other diseases of the circulatory system
CPT/HCPCS: 93308; 31500; 33990; 33992; 71045; 71046; 74018; 80048; 80053; 80061; 80076; 80202; 81003; 81015; 82248; 82330; 82550; 82805; 82810; 82962; 83036; 83605; 83615; 83695; 83735; 84100; 84132; 84145; 84478; 84484; 85025; 85027; 85210; 85347; 85379; 85384; 85610; 85613; 85730; 86146; 86147; 86148; 87040; 87086; 87641; 92950; 92978; 93005; 93306; 93454; 93460; 94002; 94003; 99152; 99153; 99291; C1725; C1753; C1760; C1769; C1874; C1887; C1894; C9460; C9606; J1327; J2250; Q9950; Q9967

== ENCOUNTER 2024-09-22 22:11 | Observation (INO) | payer BC, SELFPAY ==
[2024-09-22] VITALS (12 sets, daily range): BP systolic 99–121; BP diastolic 53–76; BMI 31.5
--- NOTE | 2024-09-22 20:51 | ED.GENMED ---
History of Present Illness
General
Chief Complaint: Chest Pain
Time Seen by Provider: 09/22/24 20:50
History of Present Illness
History of Present Illness:
TIME OF INITIAL ENCOUNTER: 8:50 PM
HPI: Patient presents due to chest pain. Of note, the patient was admitted here 09/06/2024 after initially coming in with paresthesias and became unresponsive in the waiting room. At that time, the initial EKG was relatively unremarkable. He had
cardiac arrest and went into VT VF and ROSC after shocks. Anterior ST elevation was then noted on EKG. He went to cath for anterior STEMI and required Impella assisted PCI to the LAD on 09/06/2024. He then had hyper acute in-stent thrombosis and
required repeat PCI the next day with overlapping LAD stent and thrombectomy. He had been on aspirin and Brilinta then switched to aspirin and Effient. He was found to have ischemic cardiomyopathy with EF of 30 to 35%. Discharge summary indicates
that he would be reassessed for ICD in approximately 3 months. About an hour and a half ago, he started having a chest discomfort. He does not recall having any chest discomfort with a STEMI last week. He feels like somebody is punching him from
the inside.
EXAM:
GENERAL: Well appearing in no distress
HEENT: Bilateral subconjunctival hemorrhages noted
CARDIOVASCULAR: No murmurs, normal heart rate, regular rhythm, No chest wall tenderness
PULMONARY: No respiratory distress, breath sounds are clear and equal
ABDOMEN: Soft with no peritoneal signs, no tenderness
NEUROLOGIC: Excellent strength all extremities, no coordination deficits
PSYCHIATRIC: Appropriate mental status, normal insight and judgement
EXTREMITIES: Nontender, no edema, moves all extremities equally
SKIN: No rash, no lesions
NUMBER AND COMPLEXITY OF PROBLEMS ADDRESSED AT THE ENCOUNTER
� Chronic conditions affecting care: Ischemic cardiomyopathy, VF/VT arrest August 2024
� Acute Exacerbation and/or Progression of Chronic Illness: This is an acute problem
� Differential Diagnosis includes: In-stent stenosis, anxiety, dysrhythmia
AMOUNT AND/OR COMPLEXITY OF DATA TO BE REVIEWED AND ANALYZED
� I performed an independent evaluation of and my interpretation is:
EKG: Sinus 86, rightward axis, septal/anterior Q waves with less ST elevation than 09/08/2024
CT:
X-rays:
Laboratory Studies: Troponin 0.77, creatinine 1.7 which is higher than prior
Other:
� Review of other/old records: See HPI above
� Clinical information was obtained by an independent historian: I spoke to at bedside
� Prescriptions/Medications Considered but not given:
� Further testing considered but not performed:
RISK OF COMPLICATIONS AND/OR MORBIDITY OR MORTALITY OF PATIENT MANAGEMENT
� Social determinants of health affecting care: Lives at home
� Discussion with other providers: I discussed with Dr. Box, Dr. Avina, and hospitalist, Dr. Valencia. Planning on admission to the hospital.
� Escalation of care including admission/observation vs risk of discharge considered: The patient has a very concerning recent cardiac history. Troponin 0.77 which is much lower than when it peaked at greater than 400 a couple
of weeks ago. EKG again still shows some ST elevation but less than prior. Will start heparin. The patient was given nitroglycerin and was chest pain-free after 1 nitroglycerin was given.
ANY OTHER UPDATES:
Phy Exam
Physical Exam
Physical Exam:
See HPI
Scores
Heart Score for Chest Pain Patients
STEMI patient?: Not applicable
Course
Orders/Labs/Results
Orders:
Orders
09/22/24 20:40
EKG [Electrocardiogram (*1)] Urgent
Reason for Study: Chest Pain
EKG- Treatment ONCE
09/22/24 20:59
Complete Blood Count/With Diff Urgent
Comprehensive Metabolic Panel Urgent
Troponin I Urgent
09/22/24 21:01
Nitroglycerin Sublingual [Nitrostat (Sublingual)] 0.4 mg .ROUTE .STK-MED ONE
09/22/24 21:02
Nitroglycerin Sublingual [Nitrostat (Sublingual)] 0.4 mg SL NOW STA
09/22/24 21:08
Acetaminophen [Tylenol] 1,000 mg PO NOW STA
Nitroglycerin Ointment [Nitro-Bid] 0.5 inch TOPICAL NOW STA
09/22/24 21:11
Acetaminophen [Tylenol] 1,000 mg .ROUTE .STK-MED ONE
Nitroglycerin Ointment [Nitro-Bid] 1 inch .ROUTE .STK-MED ONE
09/22/24 21:22
Heparin 4,000 units IV NOW STA
Nursing to Place Non Medication Order As Directed
Physician Order: PTT 6 hours after initial start of Heparin infusion
Above order entered?: Yes
09/22/24 21:24
PTT Urgent
Comment: Obtain baseline before beginning heparin infusion if not already collected
09/22/24 21:30
Heparin 47365 Units/250 ml 25,000 units in 250 ml IV PER PROTOCOL
Weight to be used for heparin protocol in kilograms (kg):: 98
Protocol:: Cardiac Tx/Acute Coronary
PTT Goal Range to be used:: PTT 73 to 111 seconds
Order type:: Initial
INITIAL Infusion Dose (UNITS/KG/hr) & then follow protocol:: 15 units/kg/hr
Infusion Dose in UNITS/hr & then follow protocol (UNITS/hr):: 1,450
INFUSION RATE in mL/hr & then follow protocol (mL/hr):: 14.5
PTT less than or equal to 64 seconds:: Increase rate by 200 units/hr (+ 2 mL/hr)
PTT 64.1 to 72.9 seconds:: Increase rate by 100 units/hr (+ 1 mL/hr)
PTT 73 to 111 seconds:: Target Range. No change in rate.
PTT 111.1 to 130.9 seconds:: Decrease rate by 100 units/hr (- 1 mL/hr)
PTT 131 to 199.9 seconds:: HOLD for 1 hr. Then decrease rate by 200 units/hr (- 2 mL/hr)
PTT greater than or equal to 200 seconds:: HOLD for 2 hrs & Notify Provider. Then decrease by 200 units/hr (-
2 mL/hr)
Lab follow-up:: Each change, PTT q6h until 2 consecutive are therapeutic. Then PTT
daily.
09/22/24 21:49
EKG- Treatment ONCE
09/22/24 21:58
Admit/Transfer Patient As Directed
Co-Sign Provider:
Level of Care: Observation services
Assign to:: IVU
Physician / Group: Erik
Diagnosis: Acute chest pain
PRN Pain Medication Management As Directed
May give lesser potent ordered pain med per pt: Yes
preference::
Protocol:: Medication orders for pain may be administered in a
manner that supports deferring to patient preference
when the pt is:
- Requesting an ordered lesser potent pain medication.
Least to most potent pain medications are defined
as: acetaminophen < NSAID < tramadol < opioids
(morphine, oxycodone, hydromorphone).
- Requesting a lesser dose of the same medication IF
ORDERED.
- Requesting a less intrusive route of administration
if both routes are prescribed by the provider (PO <
IV).
09/22/24 22:00
Code Status As Directed
Resuscitation Status: Full Code
Flush (0.9% Sodium Chloride) [Flush (Nss)] See Dose Instructions IV PER PROTOCOL
09/22/24 23:00
Electrocardiogram (*1) Urgent
Reason for Study: Chest Pain
Troponin I Urgent
09/23/24 03:42
PTT Urgent
Abnormal Lab Results
09/22/24 09/22/24
20:59 21:24
RBC 4.08 L 10^6/uL
(4.70-6.10)
Hgb 11.8 L g/dL
(13.0-18.0)
Hct 34.7 L %
(39.0-52.0)
RDW 14.7 H %
(11.5-14.5)
Plt Count 481 H 10^3/uL
(130-400)
APTT 36.6 H Sec
(23.4-35.0)
BUN 30 H mg/dl
(9-20)
Creatinine 1.7 H mg/dL
(0.7-1.3)
Glucose 135 H mg/dl
(70-99)
Troponin I 0.770 H* ng/ml
09/22/24 20:59
09/22/24 20:59
Vital Signs
Initial and Last Documented VS:
Initial Vital Signs
Temp Pulse Resp BP Pulse Ox
36.8 C 86 18 111/64 99
09/22/24 20:45 09/22/24 20:45 09/22/24 20:45 09/22/24 20:45 09/22/24 20:45
Last Documented Vital Signs
Temp Pulse Resp BP Pulse Ox
36.8 C 73 23 104/68 97
09/22/24 20:45 09/22/24 22:00 09/22/24 22:00 09/22/24 22:00 09/22/24 22:00
*Critical Care Note
Total Time (30-74mins, 75-104mins- exclusive of procedures): Not Applicable
ED Attending Note
-
Portions of this chart may have been created with voice recognition software.� Occasional wrong word or��sound alike� substitutions may have occurred due to the inherent limitations of voice recognition software.
Discharge Plan
Departure
Patient Disposition: Admit
Date of Disposition: 09/22/24
Time of Disposition: 21:48
Presentation/result/management discussed w/ accepting MD/DO: Hospitalist
Discharge Problem:
Acute coronary syndrome
Interventions
Interventions:
*Risk Screen - Suicide Last Done: 09/22/24 20:45
*General Assessment Last Done: 09/22/24 20:45
*Neglect/Abuse Screening Last Done: 09/22/24 20:45
*ED- Fall Risk Assessment Last Done: 09/22/24 21:04
*ED COVID-19 Vaccine History Last Done: 09/22/24 21:04
ED- Cardiac Assessment Last Done: 09/22/24 21:27
[2024-09-22] MEDS: NITROSTAT (SUBLINGUAL) 0.4 MG SL (21:02)
[2024-09-22 21:07] LABS: % Eosinophils 3.8 % (0-6); % Immature Granulocytes 0.3 % (0-0.5); % Monocytes 8.4 % (1.7-9.3); % Neutrophils 59.5 % (42.2-75.2); Absolute Basophils 0.1 10^3/uL (0-0.2); Absolute Eosinophils 0.3 10^3/uL (0-0.7); Absolute Lymphocytes 1.9 10^3/uL (1.2-3.4); Absolute Monocytes 0.6 10^3/uL (0.1-0.6); Absolute Neutrophils 4.1 10^3/uL (1.4-6.5); Hematocrit 34.7 % (39.0-52.0); Hemoglobin 11.8 g/dL (13.0-18.0); Mean Corpuscular Hgb 28.9 pg (27.0-31.0); Mean Platelet Volume 9.5 fL (7.4-10.4); Nucleated Red Blood Cells % 0 % (-); Platelet Count 481 10^3/uL (130-400); Red Blood Cell Count 4.08 10^6/uL (4.70-6.10); Red Cell Dist. Width 14.7 % (11.5-14.5); White Blood Cell Count 6.9 10^3/uL (4.8-10.8)
[2024-09-22] MEDS: TYLENOL 1000 MG PO (21:12)
[2024-09-22] MEDS: NITRO-BID 0.5 INCH TOPICAL (21:13)
[2024-09-22 21:19] LABS: ALT (SGPT) 40 U/L (0-50); AST (SGOT) 35 U/L (17-59); Albumin 3.7 g/dl (3.5-5.0); Alkaline Phosphatase 60 U/L (38-126); Blood Urea Nitrogen 30 mg/dl (9-20); Calcium 9.2 mg/dl (8.4-10.2); Carbon Dioxide 25 mmol/L (22-30); Chloride 107 mmol/L (98-107); Estimated Creatinine Clearance 61 ml/min; Glucose 135 mg/dl (70-99); Potassium 3.7 mmol/L (3.5-5.1); Sodium 139 mmol/L (135-145); Total Bilirubin 0.4 mg/dl (0.2-1.3); Total Protein 6.8 g/dl (6.3-8.2); eGFR 48.81
[2024-09-22] MEDS: HEPARIN 25000 UNITS/250 ML IV (21:42)
[2024-09-22] MEDS: HEPARIN 4000 UNITS IV (21:43)
[2024-09-22 21:45] LABS: APTT 36.6 Sec (23.4-35.0)
--- NOTE | 2024-09-22 21:50 | HPS.HSE ---
Family Physician
-
Family Physician: NOT KNOW UNKNOWN - PT DOES
Chief Complaint
-
Chest pain
History of Present Illness
This is a 49-year-old who presents to the emergency department with chest pain started about 1 hour prior to arrival in the emergency department. Patient has a recent history of CAD complicated by cardiac arrest with ST elevation NM status post PCI
to the LAD and Impella assisted PCI, complicated by hyperacute in-stent thrombosis requiring repeat PCI the following day with overlapping LAD stent and thrombectomy now on dual antiplatelet therapy, ischemic cardiomyopathy EF of 30 to 35% with
pending evaluation for ICD in approximately 3 months.
Patient reports being in usual state of health and resting when he suddenly developed a pounding chest pain. Reports it is associated radiation to the jaws and teeth bilaterally. Denies any nausea vomiting or diaphoresis. Denies feeling
lightheaded or dizzy. Denied any sensation of chest racing. He reported that the pain resolved after sublingual nitroglycerin in the emergency department. While in the emergency department status post sublingual nitroglycerin he became
hypotensive to low 90s but recovered without any acute intervention. He has a Nitropaste on right now and reports that his chest pain is 0 out of 10.
Current vital signs shows a blood pressure of 92/70 with a pulse rate of 78. ECG shows normal sinus rhythm, ST changes in V3 through V5 which represents reciprocal changes of resolving prior anterolateral infarct. Enzymes are still positive at
0.7. CBC shows hemoglobin is 11.8 which is similar to prior and unchanged. Electrolytes. Creatinine fairly stable with creatinine of 1.7 up from 1.2 previously. Likely related to postcardiac arrest ATN.
Medical History
Past Medical History
Past Medical History: Reports CAD (CAD, cardiac arrest status post 2 ST elevation NM requiring stents to the LAD complicated by acute in-stent thrombosis status post repeat PCI overlapping stent placement and thrombectomy), CHF (Ischemic
cardiomyopathy EF of 35%) and Hypercholesterolemia
Past Surgical History: Reports None
Social History
Tobacco: Non-smoker
Alcohol: None
Drug: None
Personal:
Living: With Family
Employment: Employed
Family History
Family History: Not pertinent
Allergies / Home Medications
Allergies reflects when Allergies were last updated in [facility].
Home Medications with original date entered in [facility]
Allergy/Medication List:
Allergies
Allergy/AdvReac Type Severity Reaction Status Date / Time
hydromorphone (From Dilaudid) Allergy Severe Anaphylaxis Verified 09/06/24 11:06
atorvastatin AdvReac Unknown muscle Uncoded 09/11/24 13:56
aches ,
elevated
CPK
Home Medications
mirabegron 50 mg tablet,extended release 24 hr (Myrbetriq) 50 mg PO DAILY 09/06/24
venlafaxine 150 mg tablet,extended release 24 hr 150 mg PO DAILY Mental Health/Anxiety 09/06/24
zolpidem 10 mg tablet (Ambien) 10 mg PO HS PRN insomnia 09/06/24
prasugrel HCl 10 mg tablet 10 mg PO DAILY #30 tabs 09/09/24
aspirin 81 mg chewable tablet 81 mg PO DAILY CAD #30 tabs 09/13/24
nitroglycerin 0.4 mg sublingual tablet 0.4 mg sublingual [id number] PRN chest pain #25 tabs 09/13/24
rosuvastatin 40 mg tablet 40 mg PO QPM #30 tabs 09/13/24
sacubitril 24 mg-valsartan 26 mg tablet (Entresto) 1 tab PO BID #60 tabs 09/13/24
spironolactone 25 mg tablet 12.5 mg (1/2 x 25 mg) PO DAILY #15 tabs 09/13/24
Review of Systems
-
History Source: Patient
Constitutional: Reports No Symptoms
EENT: Reports No Symptoms
Respiratory: Reports No Symptoms
Cardiac: Reports Chest Pain
Abdomen/GI: Reports No Symptoms
: Reports No Symptoms
Musculoskeletal: Reports No Symptoms
Skin: Reports No Symptoms
Neurological: Reports No Symptoms
Endocrine: Reports No Symptoms
Hematologic/Lymphatic: Reports No Symptoms
Psych: Reports No Symptoms
Physical Exam
Vital Signs
Vital Signs
Temp Pulse Resp BP Pulse Ox
98.2 F 78 18 95/62 99
09/22/24 20:45 09/22/24 21:13 09/22/24 20:45 09/22/24 21:13 09/22/24 20:45
Physical Exam
General: Well Developed, Well Nourished and No Apparent Distress
HEENT: NormoCephalic, Moist mucous membranes and Atraumatic
Respiratory: Clear
Cardiac: S1/S2 and Regular Rhythm; No Murmur or Rub
GI: Soft, Non Tender, Non Distended and Normal Bowel Sounds; No Organomegaly
Rectal: Deferred by Provider
Musculoskeletal: No Clubbing, No Cyanosis and No Edema
Skin: No Rash
Neuro: Nonfocal/grossly intact
Laboratory Results
-
09/22/24 20:59
09/22/24 20:59
Laboratory Results
Total Bilirubin 0.4 mg/dl (0.2-1.3) 09/22/24 20:59
AST 35 U/L (17-59) 09/22/24 20:59
ALT 40 U/L (0-50) 09/22/24 20:59
Alkaline Phosphatase 60 U/L (38-126) 09/22/24 20:59
Troponin I 0.770 ng/ml H* 09/22/24 20:59
Data Reviewed
-
Medical Tests (Nuc Med, Echo, EKG etc): Image Personally Visualized and interpreted
Lab Data: Labs Reviewed by me
Old Records: Reviewed
Impression/Plan
-
IMPRESSION:
49-year-old with recent episode of ST elevation NM status post LAD stenting complicated by acute stent thrombosis requiring repeat PCI and overlapping stents with thrombectomy who now presented Emergency Department with episode of chest pain that
started about 1 hour 50 minutes prior to arrival in the ED and resolved after sublingual nitroglycerin. ECG shows reciprocal anterior NM changes which seems to be resolving from prior. Troponin remains elevated at 0.7 again prior troponin at time
of discharge was over 100. He remains hemodynamically stable and is currently chest pain-free.
PLAN:
1. Chest pain -suspect ACS but cannot rule out pericarditis given recent NM and stenting
- admit to ivu
- start heparin gtt
- continue aspirin, prasugrel, statin
- continue nitroglycerin paste for now
- repeat trop in 2 hours from first with repeat ECG, trend q 3 afterwards
- NPO for now
- continue entresto with hold parameters
- continue spironolactone with hold parameters
- Dr. James Box aware
- CBC cardiology consulted
Code Status - Full Code
--- NOTE | 2024-09-22 21:53 | CON.CAR ---
Consultation
Consultation Request
Date/Time Consultation Requested: 09/22/2024
Date/Time Consultation Performed: 09/22/2024 at 2145
Requesting Provider: ER physician
Performing Provider: Dr. Avina
Reason for Consultation: Chest discomfort
Medical History
-
History of Present Illness:
49-year-old male known to our group from recent hospitalization.Patient with recent hospitalization from 09/06/2024 to 09/13/2024. Admitted with acute anterior myocardial infarction with associated VT via VF arrest in the ER. Patient underwent LAD
stenting on 09/06/2024 and required Impella. On 09/07/2024 he had acute in-stent thrombosis requiring PCI and overlapping LAD stents. Patient initially had been on aspirin and Brilinta and was changed to aspirin and Effient. Ejection fraction 30 to
35% patient states he was feeling fine until today and then he noticed a brief upper chest sensation that was quick and lasted seconds symptoms kept recurring and then he felt his lips were tingly and then had a sensation in his neck due to all the
above he went to the ER. In the ER given 1 nitroglycerin as BP went down to the 90s symptoms resolved in the ER currently chest pain-free. No complaints of shortness of breath. He has been compliant with medical therapy.
Noted during previous hospitalization patient had some shoulder pains in the recovery. Was noted to have elevated CPK and a component of rhabdomyolysis but unclear how much of the troponin was related to infarction or rest and component of
myocardial CK. CPK improved eventually patient was reinitiated on rosuvastatin. Shoulder pains have improved still some residual shoulder discomfort
PMH
Hospitalization with acute anterior myocardial infarction 09/06/2024 - 09/13/2024 as described above
GERD
Hypertension
Renal cancer postresection
DISCHARGE MEDICATIONS: On discharge 09/13/2024
1. Mirabegron 50 mg tablet, extended release 24 hr (Myrbetriq) 50
mg PO 09/06/24.
2. Venlafaxine 150 mg tablet, extended release 24 hr 150 mg PO
DAILY Mental Health/Anxiety 09/06/24.
3. Zolpidem 10 mg tablet (Ambien) 10 mg PO HS PRN insomnia
09/06/24.
4. Prasugrel HCl 10 mg tablet 10 mg PO DAILY #30 tabs 09/09/24.
5. Aspirin 81 mg chewable tablet 81 mg PO DAILY CAD #30 tabs
09/13/24.
6. Dapagliflozin propanediol 10 mg tablet 10 mg PO DAILY #30 tabs
09/13/24.
7. Nitroglycerin 0.4 mg sublingual tablet 0.4 mg sublingual [id number]
PRN chest pain #25 tabs 09/13/24.
8. Rosuvastatin 40 mg tablet 40 mg PO QPM #30 tabs 09/13/24.
9. Sacubitril 24 mg-valsartan 26 mg tablet (Entresto) 1 tab PO BID
#60 tabs 09/13/24.
10. Spironolactone 25 mg tablet 12.5 mg (1/2 x 25 mg) PO DAILY #15
tabs 09/13/24.
DIAGNOSTIC TESTING: Echocardiogram 09/08/2024. Limited followup
study with echo contrast. Moderately to severely reduced LV
systolic function. EF 30-35 percent. Anterior, anteroseptal,
septal, apical, and distal inferior hypokinesis.
Cardiac catheterization 09/07/2024. Status post aspiration
thrombectomy using an JUDD device. Successful aspiration
thrombectomy using a number device. IVUS. Successful PCI of mid
LAD extending the previously stented segment out of concern for
possible distal edge dissection. Successful PCI, previously stented
segment. Successful PCI of the proximal LAD extending into the
stented segment more proximally.
Cardiac catheterization 09/06/2024. Right dominance. Left main is
large with minimal disease. LAD, large vessel giving rise to a
small D1 and moderate caliber D2 before wrapping around the apex.
There is 100% thrombotic occlusion in the mid LAD before the
takeoff of D2. There are otherwise trivial luminal irregularities
only. LCX large vessel giving rise to large OM 1, large LPL 1, and
moderate caliber LPDA. There are trivial luminal irregularities
only. RCA, small and nondominant without significant disease. The
patient with successful Impella placement for cardiogenic shock and
support of subsequent PCI. Subsequent IVUS guided PCI to the mid
LAD and placement of MINDI. Right heart cath on Impella support
demonstrating elevated biventricular filling pressures, moderate
post capillary pulmonary hypertension, and normal cardiac output.
Past Medical History
Past Medical History: Other (As noted above)
Social History
Tobacco: Non-Smoker
Personal:
Living: With Family
Family History
Family History: CAD
Allergies / Home Medications
Allergy/AdvReac Type Severity Reaction Status Date / Time
hydromorphone (From Dilaudid) Allergy Severe Anaphylaxis Verified 09/06/24 11:06
atorvastatin AdvReac Unknown muscle Uncoded 09/11/24 13:56
aches ,
elevated
CPK
�Medication �Instructions �Recorded �Confirmed �Type
mirabegron 50 mg tablet,extended 50 mg PO DAILY 09/06/24 09/22/24 History
release 24 hr (Myrbetriq)
venlafaxine 150 mg tablet,extended 150 mg PO DAILY Mental 09/06/24 09/22/24 History
release 24 hr Health/Anxiety
zolpidem 10 mg tablet (Ambien) 10 mg PO HS PRN insomnia 09/06/24 09/22/24 History
prasugrel HCl 10 mg tablet 10 mg PO DAILY #30 tabs 09/09/24 09/22/24 Rx
aspirin 81 mg chewable tablet 81 mg PO DAILY CAD #30 tabs 09/13/24 09/22/24 Rx
nitroglycerin 0.4 mg sublingual 0.4 mg sublingual [id number] PRN 09/13/24 09/22/24 Rx
tablet chest pain #25 tabs
rosuvastatin 40 mg tablet 40 mg PO QPM #30 tabs 09/13/24 09/22/24 Rx
sacubitril 24 mg-valsartan 26 mg 1 tab PO BID #60 tabs 09/13/24 09/22/24 Rx
tablet (Entresto)
spironolactone 25 mg tablet 12.5 mg (1/2 x 25 mg) PO DAILY #15 09/13/24 09/22/24 Rx
tabs
Review of Systems
-
All other systems: Negative unless noted
Physical Exam
Vital Signs
Temp Pulse Resp BP Pulse Ox
98.2 F 78 18 95/62 99
09/22/24 20:45 09/22/24 21:13 09/22/24 20:45 09/22/24 21:13 09/22/24 20:45
Lab Results
09/22/24 20:59
09/22/24 20:59
Troponin I 0.770 ng/ml H* 09/22/24 20:59
Physical Exam
General: Well Developed and Well Nourished
HEENT: Normocephalic, Anicteric and Other (Residual conjunctival hemorrhage and notable left eye. This was more prominent bilaterally on last admission)
Respiratory: Other (No wheezes rales or rhonchi)
Cardiac: Regular Rhythm (No murmur rub or gallop)
GI: Soft, Non Tender, Non Distended, Normal Bowel Sounds and Other (No HSM)
Musculoskeletal: No Clubbing, No Cyanosis and No Edema
Skin: Warm and Dry
Neuro: Awake and Oriented
Psych: Calm and Other (Cooperative)
Impression / Plan
-
Chest discomfort. Exact etiology unclear. Patient reportedly had some paresthesias on initial presentation to the ER and then definitely had chest discomfort when he had a stent thrombosis. Chest symptoms tonight are not similar to what he has
had before but he did have some neck discomfort tonight which she had also had on his initial presentation. Some of the intermittent description of his symptoms could represent more palpitations than they do angina it is possible he was also
feeling some of these up in his throat. He had some tingling in his lips at one point which could have also been related to hyperventilation. Patient is currently chest pain-free. ECG shows evidence of prior anterior ID with some residual ST
elevation which has decreased compared to his discharge ECG first troponin is mildly abnormal at 0.77 but this still may be a downward trend in his troponins which were still as high as 156 on 09/08/2024
- Admit to IVU
- Serial troponins. He will want have 1 at the 2-hour raul and then every 6 hours x 2
- Continue DAPT with aspirin and Effient t
- Continue IV heparin which was initiated emergency department
. Continue nitrates. Patient currently on half an inch Nitropaste
- Based on patient's clinical course and troponins we will determine if patient requires cardiac catheterization this admission
.
Coronary artery disease/recent anterior ID with LAD stenting followed by acute stent thrombosis and PCI of the LAD.
- Assessment of chest discomfort as noted above
- Continue dual antiplatelet therapy
.
Ischemic cardiomyopathy
- Ejection fraction 30 to 35%
- Appears euvolemic with no evidence of decompensated heart failure
- Continue GDMT
.
CHETAN. Creatinine up to 1.7
- Hold spironolactone
- Hold next dose of Entresto
Data Reviewed
-
EKG: Report Reviewed by me, Discussed with Physician and Discussed with Nurse
Radiology: Other ( )
Medical Tests (Nuc Med, Echo etc): Report Reviewed by me
Labs: Labs Reviewed by me
[2024-09-22 23:47] LABS: Troponin I 0.772 ng/ml
[2024-09-23] VITALS: BP 103/65
[2024-09-23 01:00] VITALS: BP 104/71
[2024-09-23] MEDS: TYLENOL 650 MG PO (01:01)
[2024-09-23] MEDS: AMBIEN 10 MG PO (01:05)
[2024-09-23 02:00] VITALS: BP 97/64
[2024-09-23 03:00] VITALS: BP 99/69
[2024-09-23 03:14] LABS: APTT 61.2 Sec (23.4-35.0)
[2024-09-23 03:42] LABS: Troponin I 0.809 ng/ml
[2024-09-23 04:00] VITALS: BP 111/78
--- NOTE | 2024-09-23 04:37 | PTCARENOTE ---
received pt from ER with at bedside. NSR on monitor HR 60s 98% RA. no chest pain reported. Headache complaint 06/27. states from the nitro paste applied to his chest. Pulses palpable no edema. Hept gtt infusing at ordered rate. serial trp and
ekgs ordered. admission done. will continue ot monitor.
--- NOTE | 2024-09-23 04:40 | PTCARENOTE ---
brought own bi pap from home in. VSS. no chest pain.
[2024-09-23 05:47] LABS: Troponin I 0.771 ng/ml
[2024-09-23 07:13] LABS: Blood Urea Nitrogen 26 mg/dl (9-20); Calcium 8.9 mg/dl (8.4-10.2); Carbon Dioxide 22 mmol/L (22-30); Chloride 111 mmol/L (98-107); Estimated Creatinine Clearance 80 ml/min; Glucose 99 mg/dl (70-99); Potassium 4.2 mmol/L (3.5-5.1); Sodium 139 mmol/L (135-145); eGFR > 60.00
[2024-09-23] MEDS: LOW STRENGTH ASPIRIN 81 MG PO (08:04)
[2024-09-23] MEDS: MYRBETRIQ EXTENDED RELEASE 50 MG PO (08:04)
[2024-09-23] MEDS: EFFEXOR XR 150 MG PO (08:04)
[2024-09-23 08:42] VITALS: BP 95/68
--- NOTE | 2024-09-23 08:43 | PTCARENOTE ---
pt aaox3. states no pain or sob. nsr seen on monitor. heparin running as ordered. ekg done.
[2024-09-23 08:47] LABS: APTT 86.9 Sec (23.4-35.0)
[2024-09-23] MEDS: EFFIENT 10 MG PO (10:30)
--- NOTE | 2024-09-23 11:11 | CM ---
Chart reviewed. Patient lying in bed, at bedside. Patient is independent of ADLS, lives with his in a raised rancher, 2 STH, 2 QUINTIN, 0 DME. Plan is for the patient to return home. CM to follow
--- NOTE | 2024-09-23 11:38 | CARDSERVLU ---
Echocardiogram with [facility] completed after protocol screening completed. Allergies verified.
Patent IV site: _left hand____
IV site flushed with 0.9% NaCl pre and post administration.
Diluted bolus method utilized to enhance visualization of ventricular beltran.
Total volume given: __3.0_ mL
Patient tolerated all procedures well without complications.
--- NOTE | 2024-09-23 11:44 | W.PN.CD ---
Today's Communication / Plan
-
if remains asymptomatic off heparin and nitro patch, can discharge to home
restart home meds
BMP next week
Impression / Plan
-
Chest discomfort. Exact etiology unclear. Patient reportedly had some paresthesias on initial presentation to the ER and then definitely had chest discomfort when he had a stent thrombosis. Chest symptoms tonight are not similar to what he has
had before but he did have some neck discomfort tonight which she had also had on his initial presentation. Some of the intermittent description of his symptoms could represent more palpitations than they do angina it is possible he was also
feeling some of these up in his throat. He had some tingling in his lips at one point which could have also been related to hyperventilation. Patient is currently chest pain-free. ECG shows evidence of prior anterior MT with some residual ST
elevation which has decreased compared to his discharge ECG first troponin is mildly abnormal at 0.77 but this still may be a downward trend in his troponins which were still as high as 156 on 09/08/2024.
Overnight no more chest pain (nitro patch has been on but no other meds given). Tele stable. EKG stable. Troponin trend stable.
Coronary artery disease/recent anterior MT with LAD stenting followed by acute stent thrombosis and PCI of the LAD.
- Assessment of chest discomfort as noted above, unlikely to be due epicardial CAD
- Continue dual antiplatelet therapy
Ischemic cardiomyopathy
- Ejection fraction 30 to 35%
- Appears euvolemic with no evidence of decompensated heart failure
- Continue GDMT
CHETAN. Creatinine up to 1.7, now 1.3
-restart home med regimen with plan for outpatient BMP in 1 week
Physical Exam
Vital Signs/Labs
Vital Signs
Temp Pulse Resp BP Pulse Ox
36.7 C 73 18 95/68 97
09/23/24 08:42 09/23/24 08:42 09/23/24 08:42 09/23/24 08:42 09/23/24 08:42
09/22/24 09/23/24 09/24/24
06:59 06:59 06:59
Actual Weight 98 kg
09/22/24 20:59
09/23/24 06:18
APTT Cancelled 09/23/24 14:30
LAB Results
09/22/24 09/22/24 09/22/24
20:59 22:47 23:08
Troponin I 0.770 H* Cancelled 0.772 H*
09/23/24 09/23/24
02:19 05:09
Troponin I 0.809 H* 0.771 H*
Physical Exam
Constitutional: Comfortable
Cardiovascular: Rhythm & rate is regular
Respiratory: Respiratory effort normal
Neuro/Psych: AO x 3
Data Reviewed
-
Date of Service: September 23, 2024
Medical Decision Making: Reviewed Test Results
EKG: Tracing Personally Visualized and interpreted
Labs: Labs Reviewed by me
--- NOTE | 2024-09-23 12:13 | W.PN.HOSP.TC ---
Addendum entered and electronically signed by Juanjose Muro MD 09/23/24 13:23:
More than 30 minutes spent in discharge including
Final examination of the patient
Summarizing hospital stay
Instructions for continuing care to all relevant caregivers
Preparation of discharge records, prescriptions, and referral forms
Total time spent (in minutes): 52
Original Note:
Today's Communication/Plan
-
Await echo results
DC heparin drip. DC nitroglycerin
Continue goal-directed medical therapy
BMP next week
Assessment / Plan
Assessment / Plan
General: Well Developed, Well Nourished and No Apparent Distress
HEENT: NormoCephalic, Moist mucous membranes and Atraumatic
Respiratory: Clear
Cardiac: S1/S2 and Regular Rhythm; No Murmur or Rub
GI: Soft, Non Tender, Non Distended and Normal Bowel Sounds; No Organomegaly
Rectal: Deferred by Provider
Musculoskeletal: No Clubbing, No Cyanosis and No Edema
Skin: No Rash
Neuro: Nonfocal/grossly intact
IMPRESSION:
49-year-old with recent episode of ST elevation VA status post LAD stenting complicated by acute stent thrombosis requiring repeat PCI and overlapping stents with thrombectomy who now presented Emergency Department with episode of chest pain that
started about 1 hour 50 minutes prior to arrival in the ED and resolved after sublingual nitroglycerin. ECG shows reciprocal anterior VA changes which seems to be resolving from prior. Troponin remains elevated at 0.7 again prior troponin at time
of discharge was over 100. He remains hemodynamically stable and is currently chest pain-free.
#Chest pain.
#CAD with recent anterior VA stenting followed by acute stent thrombosis
- continue aspirin, prasugrel, statin
- Status post nitroglycerin. Remains chest pain-free. Heparin discontinued.
- Troponin lower compared to last admission.
- continue entresto
- continue spironolactone
- Discussed with interventional cardiology. Patient remained stable without nitroglycerin. Patient to be discharged home. Awaiting echo final results.
#Chronic HFrEF
Ischemic cardiomyopathy
Continue with goal-directed medical therapy
#Acute kidney injury
Creatinine down trended to 1.3.
Recommend outpatient repeat BMP with results to cardiology.
- Dr. James Box aware
- [facility] cardiology consulted
Code Status - Full Code
Anticipated Discharge: Today
Subjective/Interval History
-
Date of Service: September 23, 2024
Patient denies any chest pain
Walking to bathroom without any difficulty
Objective Data
-
Labs:
Laboratory Results
09/23/24 09/23/24 09/23/24
02:19 05:09 06:18
APTT 61.2 H
Sodium Cancelled Cancelled 139
Potassium Cancelled Cancelled 4.2
Chloride Cancelled Cancelled 111 H
Carbon Dioxide Cancelled Cancelled 22
BUN Cancelled Cancelled 26 H
Creatinine Cancelled Cancelled 1.3
Glucose Cancelled Cancelled 99
Calcium Cancelled Cancelled 8.9
09/23/24 09/23/24
08:19 14:30
APTT 86.9 H Cancelled
Sodium
Potassium
Chloride
Carbon Dioxide
BUN
Creatinine
Glucose
Calcium
Vital Signs:
Vital Signs
Temp Pulse Resp BP Pulse Ox
98.1 F 73 18 95/68 97
09/23/24 08:42 09/23/24 08:42 09/23/24 08:42 09/23/24 08:42 09/23/24 08:42
I&O
09/22/24 09/23/24 09/24/24
06:59 06:59 06:59
Intake Total 14.5 / 14.5
Balance 14.5 / 14.5
Physical Exam
-
General: Well Developed, Well Nourished and No Apparent Distress
HEENT: Normocephalic, Atraumatic and Moist Mucous Membranes
Respiratory: Clear to Auscultation; Negative Wheezes, Rales or Rhonchi
Cardiac: Regular Rhythm and S1/S2
GI: Soft, Nontender and Nondistended
Musculoskeletal: No Clubbing, No Cyanosis and No Edema
Skin: Warm and Dry
Neuro: Awake
Psych: Calm
[2024-09-23 12:47] LABS: Troponin I 0.602 ng/ml
--- NOTE | 2024-09-23 13:19 | W.DCSUMMARY ---
Discharge Summary
Discharge Data
Date of Admission: 09/22/24
Date of Discharge: 09/23/24
-
Pending Results: No
Hospital Course
49-year-old with recent episode of ST elevation [place] status post LAD stenting complicated by acute stent thrombosis requiring repeat PCI and overlapping stents with thrombectomy who now presented Emergency Department with episode of chest pain that
started about 1 hour 50 minutes prior to arrival in the ED and resolved after sublingual nitroglycerin. ECG shows reciprocal anterior [place] changes which seems to be resolving from prior. Troponin remains elevated at 0.7 again prior troponin at time
of discharge was over 100. He remains hemodynamically stable and is currently chest pain-free. Patient was started on heparin infusion overnight. Patient was here by cardiology and interventional cardiology. Patient remained chest pain-free.
Nitroglycerin paste was removed. Heparin drip was discontinued. Patient underwent echocardiogram without any new significant changes compared to echo 09/11/2024. EF remained at 30 to 35% with akinesis. Mild to moderate mitral regurgitation.
Patient also had CHETAN with improvement in creatinine to 1.3 to his baseline. Patient will require repeat BMP in 1 week with results faxed over to repairer helper. Prescription was provided. Patient was stable. Patient be discharged home with
outpatient cardiology follow-up.
Discharge Plan
-
Patient Disposition: Home (Routine Discharge)
Discharge Diagnosis/Procedures: Chest pain/discomfort
Acute kidney injury
Condition: Fair
Diet: Low Cholesterol, 2 Gram Sodium and Restrict fluids to 48 oz
Activity: As tolerated
Driving Restrictions: As prior to admission
Blood Work: BMP in 1 week results faxed to Dr. Barrera.
Referrals:
James Barrera MD [Active, Cardiology]
UNKNOWN - PT DOES,NOT KNOW [Family Provider, Internal Medicine] - in less than 1 week
Prescriptions:
Continued
zolpidem [Ambien] 10 mg Tablet
10 mg PO HS PRN (Reason: insomnia)
venlafaxine 150 mg Tablet Extended Release 24hr
150 mg PO DAILY
mirabegron [Myrbetriq] 50 mg Tablet Extended Release 24 Hr
50 mg PO DAILY
prasugrel HCl 10 mg Tablet
10 mg PO DAILY Qty: 30 11RF
spironolactone 25 mg Tablet
12.5 mg PO DAILY Qty: 15 3RF
nitroglycerin 0.4 mg Tablet, Sublingual
0.4 mg sublingual [id number] PRN (Reason: chest pain) Qty: 25 0RF
aspirin 81 mg Tablet,Chewable
81 mg PO DAILY Qty: 30 0RF
rosuvastatin 40 mg Tablet
40 mg PO QPM Qty: 30 3RF
Entresto 24-26 mg Tablet
1 tab PO BID Qty: 60 3RF
Discharge Orders:
Discharge Patient (As Directed); Ordered 09/23/24
Ordered By: Juanjose Muro
Care Plan Goals
Care Plan Goals:
Problem: Readiness for enhanced knowledge related to diagnosis and treatment plan
Goal: Understand your diagnosis and treatment plan needs, including medications if applicable.
Instructions: Know your diagnosis, underlying causes and treatment plan options, including medications if applicable. Consult with your health care team to learn about your diagnosis and treatment plan, including medications if applicable.
Discharge Date and Time
Print Language: TURKMEN
== END 2024-09-23 13:41 | disposition home or self-care (01) ==
LOC: CVICU 22:11
PROVIDERS: ADMITTING PHYSICIAN Internal Medicine; ATTENDING PHYSICIAN Hospitalist; CONSULT PHYSICIAN Internal Medicine Cardiovascular Disease; EMERGENCY PHYSICIAN Emergency Medicine
DX: N17.9 Acute kidney failure, unspecified (principal); R07.9 Chest pain, unspecified; I24.9 Acute ischemic heart disease, unspecified; Z79.02 Long term (current) use of antithrombotics/antiplatelets; I25.5 Ischemic cardiomyopathy; I50.22 Chronic systolic (congestive) heart failure; I11.0 Hypertensive heart disease with heart failure
CPT/HCPCS: 80048; 80053; 84484; 85025; 85730; 93005; 93306; 96365; 96366; 99285; G0378; Q9950

== ENCOUNTER 2024-10-17 11:55 | Outpatient (RCR) | payer BC, SELFPAY | END 2024-10-17 23:59 | disposition home or self-care (01) | LOC: CRHB 11:55 | PROVIDERS: ATTENDING PHYSICIAN Student in an Organized Health Care Education/Training Program | DX: I25.10 Atherosclerotic heart disease of native coronary artery without angina pectoris (principal); Z95.5 Presence of coronary angioplasty implant and graft; I25.2 Old myocardial infarction | CPT/HCPCS: 93797; 93798 ==

== ENCOUNTER 2024-11-16 11:06 | Outpatient (RCR) | payer BC, SELFPAY | END 2024-11-16 23:59 | disposition home or self-care (01) | LOC: CRHB 11:06 | PROVIDERS: ATTENDING PHYSICIAN Student in an Organized Health Care Education/Training Program | DX: I25.10 Atherosclerotic heart disease of native coronary artery without angina pectoris (principal); Z95.5 Presence of coronary angioplasty implant and graft; I25.2 Old myocardial infarction | CPT/HCPCS: 93797; 93798 ==

== ENCOUNTER 2024-11-28 13:00 | Outpatient (RCR) | payer BC, SELFPAY | END 2024-11-30 15:24 | disposition home or self-care (01) | LOC: CRHB 13:00 | PROVIDERS: ATTENDING PHYSICIAN Student in an Organized Health Care Education/Training Program | DX: I25.10 Atherosclerotic heart disease of native coronary artery without angina pectoris (principal); Z95.5 Presence of coronary angioplasty implant and graft; I25.2 Old myocardial infarction | CPT/HCPCS: 93797; 93798 ==

== ENCOUNTER → 2024-12-06 09:02 | Outpatient (REF) | payer BC, SELFPAY | LOC: RCS 09:02 | PROVIDERS: ATTENDING PHYSICIAN Student in an Organized Health Care Education/Training Program | DX: I51.9 Heart disease, unspecified (principal); I21.3 ST elevation (STEMI) myocardial infarction of unspecified site | CPT/HCPCS: 93308 ==

== ENCOUNTER 2025-01-09 15:07 | Outpatient (RCR) | payer BC, SELFPAY | END 2025-01-09 23:59 | disposition home or self-care (01) | LOC: RST 15:07 | PROVIDERS: ATTENDING PHYSICIAN Psychiatry & Neurology Neurology | DX: G91.3 Post-traumatic hydrocephalus, unspecified (principal); F06.8 Other specified mental disorders due to known physiological condition; R41.841 Cognitive communication deficit; G47.52 REM sleep behavior disorder; Z95.5 Presence of coronary angioplasty implant and graft; Z86.74 Personal history of sudden cardiac arrest; Z98.890 Other specified postprocedural states | CPT/HCPCS: 96125; 97129; 97130 ==

== ENCOUNTER → 2025-01-16 06:46 | Outpatient (REF) | payer BC, SELFPAY | LOC: MRI 06:46 | PROVIDERS: ATTENDING PHYSICIAN Psychiatry & Neurology Neurology | DX: G93.1 Anoxic brain damage, not elsewhere classified (principal); I46.9 Cardiac arrest, cause unspecified; F06.8 Other specified mental disorders due to known physiological condition; G47.52 REM sleep behavior disorder | CPT/HCPCS: 70551 ==

== ENCOUNTER 2025-02-17 07:01 | Outpatient (RCR) | payer BC, SELFPAY | END 2025-02-17 23:59 | disposition home or self-care (01) | LOC: RST 07:01 | PROVIDERS: ATTENDING PHYSICIAN Psychiatry & Neurology Neurology | DX: G91.3 Post-traumatic hydrocephalus, unspecified (principal); F06.8 Other specified mental disorders due to known physiological condition; R41.841 Cognitive communication deficit; G47.52 REM sleep behavior disorder; Z95.5 Presence of coronary angioplasty implant and graft; Z86.74 Personal history of sudden cardiac arrest; Z98.890 Other specified postprocedural states | CPT/HCPCS: 97129; 97130 ==

== ENCOUNTER 2025-02-24 06:59 | Outpatient (RCR) | payer BC, SELFPAY | END 2025-03-06 09:39 | disposition home or self-care (01) | LOC: RST 06:59 | PROVIDERS: ATTENDING PHYSICIAN Psychiatry & Neurology Neurology | DX: G91.3 Post-traumatic hydrocephalus, unspecified (principal); F06.8 Other specified mental disorders due to known physiological condition; R41.841 Cognitive communication deficit; G47.52 REM sleep behavior disorder; Z95.5 Presence of coronary angioplasty implant and graft; Z86.74 Personal history of sudden cardiac arrest; Z98.890 Other specified postprocedural states | CPT/HCPCS: 97129; 97130 ==